=== PATIENT | female | born 1970 | race Caucasian/White ===

== ENCOUNTER → 2024-07-25 | Outpatient (BNVA) | payer MEDICARE, MEDICAID, SELFPAY | END | disposition home or self-care (01) | PROVIDERS: PCP Nurse Practitioner Family; Referring Provider Nurse Practitioner Family; Visit Provider Urology | DX: N30.20 Other chronic cystitis without hematuria (principal); I13.2 Hypertensive heart and chronic kidney disease with heart failure and with stage 5 chronic kidney disease, or end stage renal disease; E11.22 Type 2 diabetes mellitus with diabetic chronic kidney disease; N18.6 End stage renal disease; Z99.2 Dependence on renal dialysis; I50.9 Heart failure, unspecified; E78.00 Pure hypercholesterolemia, unspecified; K21.9 Gastro-esophageal reflux disease without esophagitis; E03.9 Hypothyroidism, unspecified; E66.9 Obesity, unspecified; Z68.32 Body mass index [BMI] 32.0-32.9, adult | CPT/HCPCS: 52224; 81003; 96372; A4217; A4649; C1894; J1580; A9270 ==

== ENCOUNTER → 2024-08-15 | Outpatient (BNVA) | payer MEDICARE, MEDICAID, SELFPAY | END | disposition home or self-care (01) | PROVIDERS: PCP Nurse Practitioner Family; Referring Provider Nurse Practitioner Family; Visit Provider Urology | DX: N30.20 Other chronic cystitis without hematuria (principal); Z87.440 Personal history of urinary (tract) infections; I12.0 Hypertensive chronic kidney disease with stage 5 chronic kidney disease or end stage renal disease; E11.22 Type 2 diabetes mellitus with diabetic chronic kidney disease; N18.6 End stage renal disease; E66.9 Obesity, unspecified; Z68.33 Body mass index [BMI] 33.0-33.9, adult; E78.00 Pure hypercholesterolemia, unspecified; K21.9 Gastro-esophageal reflux disease without esophagitis; E03.9 Hypothyroidism, unspecified | CPT/HCPCS: 99212; G0463 ==

== ENCOUNTER 2024-12-15 13:40 | Inpatient (IN) | payer MEDICARE, MEDICAID, SELFPAY ==
[2024-12-15 13:41] VITALS: BMI 32.1
[2024-12-15 14:08] VITALS: BP 161/97; PULSE 118; RESP 20; TEMP 38.3; O2SAT 95
--- NOTE | 2024-12-15 14:19 | XR_ITS ---
Examination: Abdomen sonogram, Limited Date and time of exam: December 12, 2024 1451 hours INDICATIONS: Nausea vomiting beginning 3 days ago Technique: Real-time pruett scale transabdominal sonographic images of the upper abdomen obtained. Findings: Normal gallbladder Common bile duct 0.6 cm no stones Pancreatic head 2.1 cm Liver 18.4 cm no focal liver lesions Normal hepatopedal portal venous flow Patent IVC IMPRESSION: Normal gallbladder Common bile duct 0.6 cm no stones Moderate hepatomegaly no focal liver lesions
--- NOTE | 2024-12-15 14:19 | PD.EDRME ---
Rapid Medical Screening Exam RME Arrival date/time: 12/15/24 13:40 54-year-old female with no known medical history presents to the emergency room with a chief complaint of 10 out of 10 epigastric pain, fever, right upper quadrant tenderness, diarrhea, vomiting x 3 days I have greeted and performed a focused initial assessment of this patient. A comprehensive ED assessment and evaluation of the patient, analysis of all test results, and completion of the medical decision making process will be conducted by additional ED providers. Chief Complaint: Nausea/Vomiting/Diarrhea Vital signs: Vital Signs Temperature 100.9 F H 12/15/24 14:08 Pulse Rate 118 H 12/15/24 14:08 Respiratory Rate 20 12/15/24 14:08 Blood Pressure 161/97 H 12/15/24 14:08 Pulse Oximetry (%) 95 12/15/24 14:08 Oxygen Delivery Method Room Air 12/15/24 14:08 Vital signs reviewed by provider: Yes
[2024-12-15 14:44] VITALS: TEMP 38.3
[2024-12-15] MEDS: ACETAMINOPHEN 500 MG TABLET 1000 MG PO (14:44)
[2024-12-15] MEDS: ONDANSETRON ODT 4 MG TABRAP PO (14:45)
[2024-12-15 14:51] LABS: Basophils % (Auto) 0 % (0-2.5); Eosinophils # (Auto) 0.1 Thou/mm3 (0.0-0.5); Eosinophils % (Auto) 0 % (0-10); Hematocrit 26.8 % (36.0-46.0); Hemoglobin 9.3 g/dL (12.0-16.0); Immature Granulocytes % (Auto) 1 % (0-0); Immature Granulocytes Auto 0.16 Thou/mm3 (0.00-0.00); Lymphocytes # (Auto) 0.8 Thou/mm3 (1.0-4.8); Lymphocytes % (Auto) 6 % (10-50); Mean Corpuscular HGB Conc 34.7 g/dl (31.0-37.0); Mean Corpuscular Hemoglobin 32.5 pg (25.0-35.0); Mean Corpuscular Volume 94 fL (80-100); Monocytes # (Auto) 1.1 Thou/mm3 (0.0-0.8); Monocytes % (Auto) 8 % (0-12); Neutrophils # (Auto) 12.2 Thou/mm3 (1.8-7.7); Neutrophils % (Auto) 85 % (37-80); Nucleated Red Blood Cell % 0 /100 WBC (0); Platelet Count 297 Thou/mm3 (140-440); RDW Standard Deviation 47.2 fL (36.4-46.3); Red Blood Count 2.86 Miln/mm3 (4.00-5.20); White Blood Count 14.4 Thou/mm3 (3.6-11.0)
[2024-12-15 15:20] LABS: Alanine Aminotransferase < 7 U/L (10-49); Albumin, Serum 4.2 gm/dL (3.5-5.0); Albumin/Globulin Ratio 1.2 (1.2-2.2); Alkaline Phosphatase 106 U/L (46-116); Anion Gap 21 (7-16); BUN/Creatinine Ratio 7 Ratio (12-20); Bilirubin,Total 0.3 mg/dL (0.3-1.2); Blood Urea Nitrogen 47 mg/dL (9-23); Calcium 9.2 mg/dL (8.3-10.6); Calcium (Corrected) 9.2 mg/dL (8.5-10.1); Carbon Dioxide 23.8 mMol/L (20.0-31.0); Chloride 83 mMol/L (98-107); Creatinine (Component) 6.5 mg/dL (0.6-1.3); Estimated Creatinine Clearance 10.7 mL/min (>60); Globulin 3.6 gm/dL (2.3-3.5); Lipase 24 U/L (12-53); Osmolality,Calculated 300 (275-295); Sodium 128 mMol/L (136-145); Total Protein 7.8 gm/dL (5.7-8.2); eGFR 7 See Note
[2024-12-15 15:32] LABS: Glucose 652 mg/dL (74-106)
--- NOTE | 2024-12-15 15:37 | XR_ITS ---
Examination: PA chest single view TECHNIQUE: Upright PA chest single view INDICATIONS: Vomiting today FINDINGS: Mild pneumonia left base Normal heart size Right lung clear Osseous structures are intact IMPRESSION: Mild pneumonia left base, consider mild left base aspiration pneumonia
[2024-12-15 16:18] LABS: Lactate (Lactic Acid) 1.8 mMol/L (0.4-2.0)
[2024-12-15 16:19] LABS: Base Excess, Venous 3 (-3-3); O2 Saturation, Venous 78 % (96-97); PCO2, Venous 33 mmHg (36-56); PO2, Venous 40 mmHg (15-58)
[2024-12-15] MEDS: MEROPENEM INJ 1,000 MG in SODIUM CHLORIDE 0.9% (Popper) 50 ML 100 MG IV (17:13)
[2024-12-15] MEDS: VANCOMYCIN/NS 1 GM IVPB 200 ML IV (17:39)
--- NOTE | 2024-12-15 19:22 | PD.EDADDENDU ---
Emergency Room Addendum Addendum Narrative: Patient was in the waiting room and has renal failure and fever with tachycardia and presumed septic although chief close nausea vomiting diarrhea. Charge nurse was asked to put this patient in her room. I placed antibiotic course at 1536 hrs. and later patient was put in a RP room so she can get her antibiotics. At [address] Sánchez is going to see this patient and assume care for her. Note this patient was a septic alert and is immunocompromise due to her renal failure.
--- NOTE | 2024-12-15 19:28 | XR_ITS ---
Examination: CT chest, without intravenous contrast. CT abdomen, without intravenous contrast. CT pelvis, without intravenous contrast. 2-D sagittal and coronal reconstructions. 3-D reconstructions. Date and time of exam:December 15, 20242014 hours INDICATIONS: Chest pain and abdominal pain and fever today COMPARISON: CT abdomen and pelvis November 23, 2023 CTDI vol (mgy) 9.5 DLP (MGycm)668 Technique: Multiple CT images, 3.0 mm slice thickness, obtained chest, abdomen, pelvis, with the high-resolution 64 slice scanner.. Sagittal and coronal 2-D reconstructions are obtained. 3-D reconstructions Low dose protocols were performed. One or more of the following dose reduction techniques were used; automated exposure control, adjustment of the mA and/or KV according to patient size, use of iterative reconstruction technique. 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 Marked abnormal thickening of the urinary bladder wall up to 16 mm Moderate disc narrowing L4-L5, L5-S1, L4-L5 large 10 mm central lumbar disc bulge producing severe spinal stenosis IMPRESSION: 18 mm enlarged right tracheobronchial lymph node 5 cm dense pneumonic consolidation versus pulmonary mass in the left upper lobe, follow-up imaging recommended posttreatment to exclude underlying lung tumor 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
[2024-12-15 20:11] LABS: Sed Rate (ESR) 88 mm/hr (0-30)
[2024-12-15 20:27] LABS: B-Type Natriuretic Peptide 452 pg/mL (0-100)
[2024-12-15 20:46] LABS: HCG,Qualitative Serum Positive
--- NOTE | 2024-12-15 20:50 | EDNOTE_ITS ---
Nausea/Vomit./Diarrhea-RME/HPI General Chief complaint: Nausea/Vomiting/Diarrhea Stated complaint: VOMITING Time Seen by Provider: 12/15/24 18:31 Arrival date/time: 12/15/24 13:40 RME / HPI RME / HPI Narrative: 12/15/24 13:40 54-year-old female with no known medical history presents to the emergency room with a chief complaint of 10 out of 10 epigastric pain, fever, right upper quadrant tenderness, diarrhea, vomiting x 3 days I have greeted and performed a focused initial assessment of this patient. A comprehensive ED assessment and evaluation of the patient, analysis of all test results, and completion of the medical decision making process will be conducted by additional ED providers. This section includes all my notes and documentations, including HPI, PE, and ED course. Cedrick Sánchez MD HPI: 54 y/o female with Hx of CHF, ESRD, and DM here with several days of vomiting/coughing and diarrhea and malaise and minimal oral intake and subjective fever and chills. Patient receives dialysis Tuesdays, , and Saturdays. No other complaints. ROS: All negative except as documented in HPI. Physical Exam: General: Alert and oriented. No acute distress when remaining still. Fever noted. Eyes: Conjunctivae and lids clear. ENT: No nasal congestion. Neck: Supple. Heart: Tachycardia noted. Lungs: No respiratory distress. Mildly decreased air movement with rhonchi and rales. Abdomen: Soft with equivocal tenderness, difficult to localize. Normal bowel sounds. No distension. No rebound or guarding. Back: No CVA tenderness. Skin: Warm and dry. Neuro: Alert and oriented X 3. I reviewed all diagnostic test results: My interpretation of the chest x-ray is: Infiltrates. My review of the Chest/Abdomen/Pelvis CT report is: 18 mm enlarged right tracheobronchial lymph node. 5 cm dense pneumonic consolidation versus pulmonary mass in the left upper lobe, follow-up imaging recommended posttreatment to exclude underlying lung tumor. 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 Again noted marked abnormal thickening of the urinary bladder wall, differential would include cystitis, bladder carcinoma, recommend urology consultation. Severe spinal stenosis L4-L5, recommend elective MRI lumbar spine without contrast follow-up. My review of the Gall Bladder US report is NAD. Blood tests remarkable for WBC 14.4, ESR 88, K 4.0, Cr 6.5, Glu 652, LA 1.8, CRP 20.9, BNP 452, procalcitonin 6.14. UA showed positive leukocyte Estrace, 76 RBC, 11 WBC, and 1+ bacteria. Covid/Influenza negative. At this point, diagnoses include: Sepsis, Pneumonia, Cystitis, Hyperglycemia due to DM, End-stage Renal Disease. Treatment here included: Insulin, Toradol, Morphine, Ofirmev, Tylenol, Merren, Zofran, Vancomycin Patient remained stable. 2241: I discussed the case with Laron Thompson, the patient's Shipping And Receiving Operator, about the presentation and exam and diagnostics and treatments here. And need of further care in the hospital. Recommended admission to hospitalist. 2299: I discussed the case with our hospitalist. About the presentation and exam and diagnostics and treatments here. And need of further care in the hospital. Will accept the patient. Cedrick Sánchez MD Related Data Home Medications ?Medication ?Instructions ?Recorded ?Confirmed insulin glargine 100 unit/mL (3 30 unit subcut QAM 01/2808/15/24 mL) subcutaneous pen (Basaglar KwikPen U-100 Insulin) insulin regular human 100 unit/mL 1 unit subcut PRN AK N Hyperglycemia 04/17/20 08/15/24 injection solution (Humulin R Regular U-100 Insulin) levothyroxine 25 mcg tablet 12.5 mcg PO EVERYOTHERDAY 04/17/20 08/15/24 ergocalciferol (vitamin D2) 1,250 1,250 mcg PO 2 X WEE KLY 08/25/23 08/15/24 mcg (50,000 unit) capsule (Vitamin D2) midodrine 10 mg tablet 10 mg PO TID 08/25/23 sevelamer HCl 800 mg tablet 800 mg PO TID 08/25/2311/03 (Renagel) allopurinol 300 mg tablet 300 mg PO QDAY 03/16/2411/03 diltiazem HCl 240 mg 240 mg PO QDAY 03/16/2411/03 capsule,extended release 24 hr vitamin B complex-vitamin C-folic 1 tab PO QDAY 08/15/24 acid 0.8 mg tablet (Татьяна-Toby) Allergies Allergy/AdvReac Type Severity Reaction Status Date / Time codeine Allergy Severe Swelling Verified 08/15/24 15:08 hydrocodone Allergy Severe Swelling Verified 08/15/24 15:08 Penicillins Allergy Severe Difficulty Verified 08/15/24 15:08 Breathing sulfamethoxazole (From Allergy Severe Swelling Verified 08/15/24 15:08 Bactrim) of Lip/Tongue/Throat trimethoprim (From Bactrim) Allergy Severe Swelling Verified 08/15/24 15:08 of Lip/Tongue/Throat Review of Systems Review of Systems Systems Reviewed: All systems reviewed, normal except as documented Past Medical History Past Medical History CARDIAC: Positive Cardiac Disorders, Hypercholesterolemia, Congestive Heart Failure and Hypertension GASTROINTESTINAL: Positive Gastroesophageal Reflux Disease and Obesity GENITOURINARY: Positive Genitourinary Disorders, Renal Disease and Dialysis (T/Thr/Sat) REPRODUCTIVE: Positive Previous Pregnancies (5) ENT: Positive Cataracts ENDOCRINE: Positive Endocrine Disorders, Diabetes Mellitus Type 2 and Hypothyroidism HEMATOLOGIC: Positive Blood Disorders and Anemia OTHER HISTORY: Positive Hospitalization, Shingles, Falls, Blood Transfusions and Chicken Pox Family History FAMILY HISTORY: Positive Family Respiratory Disorders, Family Cardiac Disorders and Family Cancer Surgical History SURGICAL: Positive Oral Surgery and Section (2) ED Exam Narrative Physical exam: Refer to HPI above Course Course Course Narrative: CXR is ordered for determining the etiology of shortness of breath. Quality Measures none Orders Category Date Time Status Bedside COVID-19 Antigen Test NOW Care 12/15/24 19:26 Active Bedside Influenza A&B Antigen Test NOW Care 12/15/24 19:26 Completed Saline [Insert IV] NOW Care 12/15/24 19:26 Active Straight [In and Out Catheter] X1 Care 12/15/24 19:26 Completed Consult to Nephrology Stat Cons 12/15/24 22:[address] chest abdomen pelvis wo Stat Exams 12/15/24 19:28 Completed US gall bladder Stat Exams 12/15/24 14:19 Completed US pelvic complete Stat Exams 12/15/24 23:08 Ordered XR chest 1V portable Stat Exams 12/15/24 15:37 Completed BNP [B-Type Natriuretic Peptide] Stat Lab 12/15/24 19:57 Completed Beta HCG,Quantitative Stat Lab 12/15/24 16:00 Completed Beta Hydroxybutyrate Stat Lab 12/15/24 19:57 Completed Blood Culture (Lab) Stat Lab 12/15/24 16:09 Received CBC Stat Lab 12/15/24 14:35 Completed CMP [Comprehensive Metabolic Panel] Stat Lab 12/15/24 14:35 Completed CRP [C-Reactive Protein] Stat Lab 12/15/24 19:57 Completed ESR [Sed Rate (ESR)] Stat Lab 12/15/24 19:57 Completed Free T4 (Free Thyroxine) Stat Lab 12/15/24 19:57 Completed HCG Qualitative,Urine Stat Lab 12/15/24 22:01 Completed HCG,Qualitative Serum Stat Lab 12/15/24 19:57 Completed Lactate (Lactic Acid) Stat Lab 12/15/24 16:00 Completed Lipase Stat Lab 12/15/24 14:35 Completed Magnesium Stat Lab 12/15/24 19:57 Completed Procalcitonin Stat Lab 12/15/24 19:57 Completed TSH [Thyroid Stimulating Hormone] Stat Lab 12/15/24 19:57 Completed Troponin I Stat Lab 12/15/24 19:57 Completed UA [Urinalysis] Stat Lab 12/15/24 22:01 Completed Urine Culture Stat Lab 12/15/24 22:01 Received Venous Blood Gas Stat Lab 12/15/24 16:00 Completed Acetaminophen Ivpb [Ofirmev Inj] Med 12/15/24 19:38 Discontinued 1,000 mg in 100 ml IV X1 Acetaminophen Tab [Tylenol ES Tab] Med 12/15/24 14:25 Discontinued 1,000 mg PO X1 ONE Insulin Regular Med 12/15/24 19:39 Discontinued 10 unit IV X1 ONE Ketorolac Inj [Toradol Inj] Med 12/15/24 19:38 Discontinued 30 mg IVP X1 ONE Meropenem Inj [Merrem Inj] 1,000 mg Med 12/15/24 15:36 Discontinued SODIUM CHLORIDE 0.9% (Popper) [Ns 0.9% (P)] 50 ml IV X1 Morphine Inj Med 12/15/24 19:26 Discontinued 4 mg IVP X1 ONE Ondansetron Odt [Zofran Odt] Med 12/15/24 14:25 Discontinued 4 mg PO X1 ONE Vancomycin Inj 1,000 mg Med 12/15/24 15:35 Discontinued Sodium Chloride 0.9% 250 ml [Ns] 250 ml IV X1 Vancomycin/Ns 1 gm Ivpb 200 ml Med 12/15/24 15:45 Discontinued IV X1 Vital Signs Vital signs: Vital Signs Temperature 100.9 F H 12/15/24 14:08 Pulse Rate 118 H 12/15/24 14:08 Respiratory Rate 20 12/15/24 14:08 Blood Pressure 161/97 H 12/15/24 14:08 Pulse Oximetry (%) 95 12/15/24 14:08 Oxygen Delivery Method Room Air 12/15/24 14:08 Nausea/Vomiting/Diarrhea MDM Narrative MDM Narrative:: Scribe Attestation: Ani Zuniga, am scribing for and in the presence of Dr. Sánchez. Provider Notation: Although this document has been carefully reviewed, there may still be some phonetic and other typographical errors.? These errors are purely grammatical due to imperfections in the software program and should not be construed in any way to? compromise the substance of the patient's medical care during this visit. 54 y/o female with Hx of CHF, Renal Disease, Dialysis, and Diabetes Mellitus Type 2 presents to ED c/o of fever, vomiting, diarrhea, and epigastric abdominal pain x 3 days. Patient receives dialysis Tuesdays, , and Saturdays. No other complaints. Patient data External records reviewed:: [facility] previous records (Reviewed prior ED records from 09/23/23. Patient was seen for Chronic mastoiditis.) Clinical information provided by:: patient Social determinants that could affect healthcare access:: none Patient has the following chronic illnesses:: Hypercholesterolemia, Congestive Heart Failure, Hypertension, Gastroesophageal Reflux Disease, Obesity, Renal Disease and Dialysis (T/Thr/Sat), Cataracts, Diabetes Mellitus Type 2, Hypothyroidism, Anemia How is presenting disease/condition affected by chronic disease/condition?: exacerbated by Evaluation data The following diagnostics were reviewed and interpreted by me:: lab results and radiology exam(s) Lab and/or radiology exams considered but not ordered:: None Interpretation Summary: I reviewed all diagnostic test results: My interpretation of the chest x-ray is: Infiltrates. My review of the Chest/Abdomen/Pelvis CT report is: 18 mm enlarged right tracheobronchial lymph node. 5 cm dense pneumonic consolidation versus pulmonary mass in the left upper lobe, follow-up imaging recommended posttreatment to exclude underlying lung tumor. 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 Again noted marked abnormal thickening of the urinary bladder wall, differential would include cystitis, bladder carcinoma, recommend urology consultation. Severe spinal stenosis L4-L5, recommend elective MRI lumbar spine without contrast follow-up. My review of the Gall Bladder US report is NAD. Blood tests remarkable for WBC 14.4, ESR 88, K 4.0, Cr 6.5, Glu 652, LA 1.8, CRP 20.9, BNP 452, procalcitonin 6.14. UA showed positive leukocyte Estrace, 76 RBC, 11 WBC, and 1+ bacteria. Covid/Influenza negative. Medications / Prescriptions Medications / Prescriptions considered but not ordered:: None Medication administrations:: Medication Administration History Acetaminophen (Acetaminophen 325 Mg Tablet) 650 mg PO Q6H PRN PRN Reason: Fever >100.4 or pain Stop: 01/14/25 23:31 Dextrose (Dextrose 50%-Water Inj 50 Ml Syringe) 25 ml IV Q15MIN PRN PRN Reason: BG 50-70 responsive npo pt Stop: 01/14/25 23:31 Dextrose (Dextrose 50%-Water Inj 50 Ml Syringe) 50 ml IV Q15MIN PRN PRN Reason: BG <50 OR BG <70 & pt unresponsive Stop: 01/14/25 23:31 Docusate Sodium (Docusate Sod 100 Mg Capsule) 100 mg PO QDAY PRN; Protocol PRN Reason: CONSTIPATION Stop: 01/14/25 23:31 Glucagon (Glucagon Inj 1 Mg Vial) 1 mg IM Q15MIN PRN PRN Reason: BG <70, and no IV access Heparin Sodium (Porcine) (Heparin Sod Inj 5000 Unit/Ml Vial) 5,000 unit SC Q12HR MICHELLE Stop: 12/30/24 08:59 Lactated Ringer's (Lactated Ringers) 1,000 mls @ 80 mls/hr IV .[id number] ONE Stop: 12/16/24 12:08 Ceftriaxone Sodium/Dextrose (Rocephin/D5w 1gm Iv Premix) 1 gm in 50 mls @ 100 mls/hr IV QDAY@2100 MICHELLE Stop: 12/22/24 23:44 Last Admin: 12/15/24 23:54 Dose: 100 mls/hr Documented By: AM Insulin Glargine (Insulin Glargine (Lantus) 5 Unit/0.05 Ml (Per 5 Units)) 25 unit SC QDAY [facility] Stop: 01/15/25 08:59 Insulin Human Lispro (Insulin Lispro (Admelog) 1 Unit/0.01 Ml Unit) 0 unit SC Q6HR MICHELLE; Protocol Stop: 01/15/25 00:00 Ondansetron HCl (Ondansetron Inj 2 Mg/Ml Inj 2 Ml) 4 mg IVP Q6H PRN; Protocol PRN Reason: NAUSEA OR VOMITING Stop: 01/14/25 23:31 Sennosides (Senna Tablet) 1 tab PO QDAY PRN; Protocol PRN Reason: constipation Stop: 01/14/25 23:31 Discontinued Medications Acetaminophen (Acetaminophen 500 Mg Tablet) 1,000 mg PO X1 ONE Stop: 12/15/24 14:26 Last Admin: 12/15/24 14:44 Dose: 1,000 mg Documented By: PAPO Vancomycin HCl 1,000 mg/ (Sodium Chloride) 250 mls @ 150 mls/hr IV X1 ONE Stop: 12/15/24 17:14 Last Admin: 12/15/24 17:40 Dose: Not Given Documented By: [facility] Non-Admin Reason: Duplicate Medication on eMAR Meropenem 1,000 mg/ Sodium (Chloride) 50 mls @ 100 mls/hr IV X1 ONE Stop: 12/15/24 15:37 Last Infusion: 12/15/24 17:40 Dose: Infused Documented By: [facility] Admin: 12/15/24 17:13 Dose: 100 mls/hr Documented By: [facility] Vancomycin/Sodium Chloride (Vancomycin/Ns 1 Gm Ivpb) 200 mls @ 120 mls/hr IV X1 ONE Stop: 12/15/24 17:24 Last Infusion: 12/15/24 19:20 Dose: Infused Documented By: [facility] Admin: 12/15/24 17:39 Dose: 120 mls/hr Documented By: [facility] Acetaminophen (Ofirmev Inj) 1,000 mg in 100 mls @ 250 mls/hr IV X1 ONE Stop: 12/15/24 20:01 Last Admin: 12/15/24 22:48 Dose: Not Given Documented By: Non-Admin Reason: Patient Refused Lactated Ringer's (Lactated Ringers) 500 mls @ 999 mls/hr IV .Q31M ONE Stop: 12/16/24 00:09 Last Admin: 12/15/24 23:59 Dose: 999 mls/hr Documented By: AM Insulin Human Regular (Insulin Hum Regular 1 Unit/0.01 Ml (Per Unit)) 10 unit IV X1 ONE Stop: 12/15/24 19:40 Last Admin: 12/15/24 22:37 Dose: 10 unit Documented By: AM Co-signed By: VINCE Ketorolac Tromethamine (Ketorolac Inj 30 Mg/Ml Vial) 30 mg IVP X1 ONE Stop: 12/15/24 19:39 Last Admin: 12/15/24 22:16 Dose: Not Given Documented By: AM Non-Admin Reason: Patient Refused Morphine Sulfate (Morphine Sulf Inj 10 Mg/Ml Vial) 4 mg IVP X1 ONE Stop: 12/15/24 19:27 Last Admin: 12/15/24 22:15 Dose: Not Given Documented By: AM Non-Admin Reason: Patient Refused Ondansetron HCl (Ondansetron Odt 4 Mg Tabrap) 4 mg PO X1 ONE; Protocol Stop: 12/15/24 14:26 Last Admin: 12/15/24 14:45 Dose: 4 mg Documented By: OA Insulin, Toradol, Morphine, Ofirmev, Tylenol, Merren, Zofran, Vancomycin Consultations Consultation(s) initiated? (list below): Yes Consultation #1 (Physician, Specialty, Details): I discussed the case with Laron Thompson, the patient's Shipping And Receiving Operator, about the presentation and exam and diagnostics and treatments here. And need of further care in the hospital. Recommended admission to hospitalist. Time: 22:42 Diagnosis Nausea Differential Diagnosis: traveler's diarrhea, food poisoning, gastroenteritis, clostridium difficile infection, drug-induced nausea and vomiting, dehydration and other (Pneumonia, UTI, sepsis) Most likely diagnosis given after review of the tests above:: Sepsis, Pneumonia, Cystitis, hyperglycemia due to DM, ESRD. Admission Indicated Admission indicated?: indicated Explain why admission is indicated or not indicated:: Sepsis, Pneumonia, Cystitis, hyperglycemia due to DM, ESRD. Admission Request Was there a request for admission?: Yes Admission Attestation Admission request attestation: Discussed case with Hospitalist service regarding admission. Discussed patients ED course, exam findings, labs, and radiology results. The Hospitalist [agrees] to accept the patient for admission. Disposition Plan Disposition Plan: Admit Discharge Plan Plan Patient Disposition: Admit Acute Care w/in Hospital Problem List Clinical Impression: Sepsis, Pneumonia, Cystitis, Hyperglycemia due to diabetes mellitus, End-stage renal disease (ESRD)
[2024-12-15 20:54] LABS: Free T4 (Free Thyroxine) 1.01 ng/dL (0.89-1.76); Magnesium 2.1 mg/dL (1.6-2.6); Procalcitonin 6.14 ng/ml (0.0-0.49); Thyroid Stimulating Hormone 1.29 uIU/mL (0.55-4.78); Troponin I < 0.020 ng/mL (0.0-0.045)
[2024-12-15 21:09] LABS: Beta Hydroxybutyrate 0.1 mmol/L (<0.6); C-Reactive Protein 20.9 mg/dL (0.0-0.9)
[2024-12-15 21:36] VITALS: BP 149/67; PULSE 94; RESP 20; TEMP 36.9; O2SAT 100
[2024-12-15 22:07] LABS: Collection Type, Urine Clean Catch
[2024-12-15 22:15] LABS: HCG Qualitative,Urine Negative
[2024-12-15 22:29] LABS: Bacteria,Urine 1+; Bilirubin,Urine Negative (Negative); Blood,Urine 1+ (Negative); Glucose, Urine 4+ (Negative); Ketones,Urine 1+ (Negative); Leukocyte Esterase,Urine Positive (Negative); Nitrite,Urine Negative (Negative); PH,Urine 6.5 (5.0-7.0); Protein,Urine 3+ (Neg - Trace); RBC,Urine 76 /hpf (0-3); Specific Gravity,Urine 1.014 (1.001-1.035); Squamous Epithelial Cell,Urine 7 /hpf (0-5); Urobilinogen,Urine Negative mg/dL (0.0-1.0); WBC,Urine 11 /hpf (0-5)
[2024-12-15 22:35] LABS: Color,Urine Amber (Lt Yel-Yel)
[2024-12-15 22:36] LABS: Clarity,Urine Turbid (Clear/Hazy)
[2024-12-15] MEDS: INSULIN HUM REGULAR 1 UNIT/0.01 ML (PER UNIT) 10 UNIT IV (22:37)
[2024-12-15 23:14] VITALS: BP 155/96; PULSE 97; RESP 19; TEMP 36.8; O2SAT 95
[2024-12-15] MEDS: cefTRIAXone/D5w 1gm IV premix 1 GM/50 ML BAG IV (23:54)
[2024-12-15] MEDS: RINGERS LACTATED 500 ML 500 ML 999 ML IV (23:59)
[2024-12-16] VITALS (29 sets, daily range): BP systolic 87–174; BP diastolic 25–138; PULSE 59–128; RESP 17–32; TEMP 37–39.5; O2SAT 82–100; BMI 32.1
--- NOTE | 2024-12-16 00:06 | PD.RESHP ---
Documentation for date of: 12/16/24 [facility] History of Present Illness Chief complaint: Nausea, vomiting, fever History of present illness: 54 y/o F with PMHx significant for ESRD (//Wed), CHF, type 2 diabetes, hypothyroidism, dermoid tumor presents with chief complaint nausea, vomiting, fever x 1 day. Patient was in usual state of health until this morning when she developed intractable nausea and vomiting, worsened with food. Patient also noted fevers during this time. Patient denied shortness of breath, cough, chest pain, abdominal pain, dysuria. Patient reports her last menstrual period was approximately 5 years ago. Patient has known history of dermoid tumor, has not been followed up outpatient for this, no intervention as size is stable. ED COURSE: Labs significant for: WBC 14.4, sodium 128, anion gap 21, BUN 47, creatinine 6.5, EGFR 7, glucose 62, osmolarity 300, BNP 452, BHP 0.1, lactic acid 1.8, Pro-Sebastian 6.1, CRP 20.9, serum hCG positive, VBG pH 7.5, pCO2 33. Urinalysis: 3+ protein, 4+ glucose, 1+ blood, positive leukocyte esterase, 76 RBCs, 11 WBCs, 7 squamous epithelial cells, 1+ bacteria. Imaging significant for: Catheter, possible effacement. 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 Patient received vancomycin, meropenem, ketorolac, morphine. Patient given 10 units insulin IV. PMH: ESRD, CHF, diabetes, hypothyroidism, dermal tumor PSH: 2 C-sections, left upper extremity fistula placement, cataract surgery SH: Quit smoking 23 years ago, [id number] history. Endorses 1 glass of wine every 2 weeks, denies any illicit drug use. Allergies:?Codeine, hydrocodone, penicillin, sulfa drugs Medications: Atorvastatin, levothyroxine, allopurinol, midodrine, 25 units of long-acting insulin and insulin sliding scale. Review of Systems Review of Systems Systems Reviewed: All systems reviewed, normal except as documented Past Medical History Past Medical History Comments PMH COMMENT: PMH: ESRD, CHF, diabetes, hypothyroidism, dermal tumor PSH: 2 C-sections, left upper extremity fistula placement, cataract surgery SH: Quit smoking 23 years ago, [id number] history. Endorses 1 glass of wine every 2 weeks, denies any illicit drug use. Allergies:?Codeine, hydrocodone, penicillin, sulfa drugs Medications: Atorvastatin, levothyroxine, allopurinol, midodrine, 25 units of long-acting insulin and insulin sliding scale. Exam Vital Signs Temp Pulse Resp BP Pulse Ox O2 Del Method 98.2 F 97 19 155/96 H 95 Room Air 12/15/24 23:14 12/15/24 23:14 12/15/24 23:14 12/15/24 23:14 12/15/24 23:14 12/15/24 23:14 Narrative Exam PE: Gen: Well-developed and well-nourished. HEENT: NCAT, PERRLA, EOMI, anicteric conjunctivae. Dry mucous membranes. CVS: normal S1 and S2. RRR. No M/R/G. Resp: CTA B/L. No rhonchi, rales, crackles or wheezing. Abd: soft, non-tender, non-distended. MSK: Good ROM in BUE & BLE. No edema or rash. Left upper arm fistula. Neuro: CN II-XII grossly intact. Strength 5/5 in BUE & BLE. Alert and oriented x3. Psych: appropriate mood and affect. Results: Labs 12/16/24 17:30 12/16/24 17:30 Labs: Short CBC 12/15/24 Range/Units 14:35 WBC 14.4 H (3.6-11.0) Thou/mm3 Hgb 9.3 L (12.0-16.0) g/dL Hct 26.8 L (36.0-46.0) % Plt Count 297 (140-440) Thou/mm3 BMP 12/15/24 14:35 Sodium 128 L Potassium 4.0 Chloride 83 L Carbon Dioxide 23.8 BUN 47 H Creatinine 6.5 H* Glucose 652 H* Calcium 9.2 Cardiac Enzymes 12/15/24 Range/Units 19:57 Troponin I < 0.020 (0.0-0.045) ng/mL Liver Function 12/15/24 Range/Units 14:35 Total Bilirubin 0.3 (0.3-1.2) mg/dL ALT < 7 L (10-49) U/L Alkaline Phosphatase 106 (46-116) U/L Albumin 4.2 (3.5-5.0) gm/dL Urine 12/15/24 Range/Units 22:01 Urine Color Isela (Lt Yel-Yel) Urine Clarity Turbid A (Clear/Hazy) Urine pH 6.5 (5.0-7.0) Ur Specific Micro 1.014 (1.001-1.035) Urine Protein 3+ A (Neg - Trace) Urine Glucose (UA) 4+ A (Negative) ABG Interpretation ABG results: 12/15/24 16:00 VBG pH 7.50 VBG pCO2 33 L VBG pO2 40 VBG Base Excess 3 Quality Measures Quality Measures VTE prophylaxis and none Medications Home Medications and Allergies Home Medications ?Medication ?Instructions ?Recorded ?Confirmed ?Type insulin glargine 100 unit/mL (3 30 unit subcut QAM 04/17/20 08/15/24 History mL) subcutaneous pen (Basaglar KwikPen U-100 Insulin) insulin regular human 100 unit/mL 1 unit subcut PRN PRN Hyperglycemia 04/17/20 08/15/24 History injection solution (Humulin R Regular U-100 Insulin) levothyroxine 25 mcg tablet 12.5 mcg PO EVERYOTHERDAY 04/17/20 08/15/24 History ergocalciferol (vitamin D2) 1,250 1,250 mcg PO 2 X WEEKLY 08/25/23 08/15/24 History mcg (50,000 unit) capsule (Vitamin D2) midodrine 10 mg tablet 10 mg PO TID 08/25/23 08/15/24 History sevelamer HCl 800 mg tablet 800 mg PO TID 08/25/23 08/15/24 History (Renagel) allopurinol 300 mg tablet 300 mg PO QDAY 03/16/24 08/15/24 History diltiazem HCl 240 mg 240 mg PO QDAY 03/16/24 08/15/24 History capsule,extended release 24 hr vitamin B complex-vitamin C-folic 1 tab PO QDAY 03/16/24 08/15/24 History acid 0.8 mg tablet (Татьяна-Toby) Allergies Allergy/AdvReac Type Severity Reaction Status Date / Time codeine Allergy Severe Swelling Verified 08/15/24 15:08 hydrocodone Allergy Severe Swelling Verified 08/15/24 15:08 Penicillins Allergy Severe Difficulty Verified 08/15/24 15:08 Breathing sulfamethoxazole (From Allergy Severe Swelling Verified 08/15/24 15:08 Bactrim) of Lip/Tongue/Throat trimethoprim (From Bactrim) Allergy Severe Swelling Verified 08/15/24 15:08 of Lip/Tongue/Throat Visit Medications Acetaminophen (Acetaminophen 325 Mg Tablet) 650 mg PO Q6H PRN PRN Reason: Fever >100.4 or pain Stop: 01/14/25 23:31 Dextrose (Dextrose 50%-Water Inj 50 Ml Syringe) 25 ml IV Q15MIN PRN PRN Reason: BG 50-70 responsive npo pt Stop: 01/14/25 23:31 Dextrose (Dextrose 50%-Water Inj 50 Ml Syringe) 50 ml IV Q15MIN PRN PRN Reason: BG <50 OR BG <70 & pt unresponsive Stop: 01/14/25 23:31 Docusate Sodium (Docusate Sod 100 Mg Capsule) 100 mg PO QDAY PRN; Protocol PRN Reason: CONSTIPATION Stop: 01/14/25 23:31 Glucagon (Glucagon Inj 1 Mg Vial) 1 mg IM Q15MIN PRN PRN Reason: BG <70, and no IV access Heparin Sodium (Porcine) (Heparin Sod Inj 5000 Unit/Ml Vial) 5,000 unit SC Q12HR [facility] Stop: 12/30/24 08:59 Lactated Ringer's (Lactated Ringers) 500 mls @ 999 mls/hr IV .Q31M ONE Stop: 12/16/24 00:09 Last Admin: 12/15/24 23:59 Dose: 999 mls/hr Lactated Ringer's (Lactated Ringers) 1,000 mls @ 80 mls/hr IV .[id number] ONE Stop: 12/16/24 12:08 Ceftriaxone Sodium/Dextrose (Rocephin/D5w 1gm Iv Premix) 1 gm in 50 mls @ 100 mls/hr IV QDAY@2100 [facility] Stop: 12/22/24 23:44 Last Admin: 12/15/24 23:54 Dose: 100 mls/hr Insulin Glargine (Insulin Glargine (Lantus) 5 Unit/0.05 Ml (Per 5 Units)) 25 unit SC QDAY MICHELLE Stop: 01/15/25 08:59 Insulin Human Lispro (Insulin Lispro (Admelog) 1 Unit/0.01 Ml Unit) 0 unit SC Q6HR [facility]; Protocol Stop: 01/15/25 00:00 Ondansetron HCl (Ondansetron Inj 2 Mg/Ml Inj 2 Ml) 4 mg IVP Q6H PRN; Protocol PRN Reason: NAUSEA OR VOMITING Stop: 01/14/25 23:31 Sennosides (Senna Tablet) 1 tab PO QDAY PRN; Protocol PRN Reason: constipation Stop: 01/14/25 23:31 Discontinued Medications Acetaminophen (Acetaminophen 500 Mg Tablet) 1,000 mg PO X1 ONE Stop: 12/15/24 14:26 Last Admin: 12/15/24 14:44 Dose: 1,000 mg Vancomycin HCl 1,000 mg/ (Sodium Chloride) 250 mls @ 150 mls/hr IV X1 ONE Stop: 12/15/24 17:14 Last Admin: 12/15/24 17:40 Dose: Not Given Meropenem 1,000 mg/ Sodium (Chloride) 50 mls @ 100 mls/hr IV X1 ONE Stop: 12/15/24 15:37 Last Infusion: 12/15/24 17:40 Dose: Infused Vancomycin/Sodium Chloride (Vancomycin/Ns 1 Gm Ivpb) 200 mls @ 120 mls/hr IV X1 ONE Stop: 12/15/24 17:24 Last Infusion: 12/15/24 19:20 Dose: Infused Acetaminophen (Ofirmev Inj) 1,000 mg in 100 mls @ 250 mls/hr IV X1 ONE Stop: 12/15/24 20:01 Last Admin: 12/15/24 22:48 Dose: Not Given Insulin Human Regular (Insulin Hum Regular 1 Unit/0.01 Ml (Per Unit)) 10 unit IV X1 ONE Stop: 12/15/24 19:40 Last Admin: 12/15/24 22:37 Dose: 10 unit Ketorolac Tromethamine (Ketorolac Inj 30 Mg/Ml Vial) 30 mg IVP X1 ONE Stop: 12/15/24 19:39 Last Admin: 12/15/24 22:16 Dose: Not Given Morphine Sulfate (Morphine Sulf Inj 10 Mg/Ml Vial) 4 mg IVP X1 ONE Stop: 12/15/24 19:27 Last Admin: 12/15/24 22:15 Dose: Not Given Ondansetron HCl (Ondansetron Odt 4 Mg Tabrap) 4 mg PO X1 ONE; Protocol Stop: 12/15/24 14:26 Last Admin: 12/15/24 14:45 Dose: 4 mg Assessment & Plan Plan 54 y/o F with PMHx significant for ESRD (//Wed), CHF, type 2 diabetes, hypothyroidism, dermoid tumor presents with chief complaint nausea, vomiting, fever x 1 day, admitted for infection, UTI versus pneumonia. #Intractable nausea/vomiting #Pneumonia #UTI Patient presented complaint of fever, intractable nausea and vomiting x 1 day. Patient has nonspecific symptoms, denies shortness of breath, cough, dysuria. Patient has elevated Pro-Sebastian 6.14, anion gap acidosis. CT C/A/P showed left lower lobe consolidation concerning for pneumonia versus malignancy. 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 Of note patient positive beta-hCG test, last period was over 5 years ago. - Qualitative serum hCG test ordered, follow-up - Pelvic ultrasound ordered, follow-up #Type 2 diabetes, patient history #Hyperglycemia Patient history of type 2 diabetes. Patient severely hyperglycemic on presentation, serum glucose 652. Beta hydroxybutyrate 0.1. Patient received 10 units insulin x 1 in the ED, mild improvement. Patient also has pseudohyponatremia, sodium 128, corrected sodium 141. 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 Larry, receives dialysis Wednesday, , Wednesday. Patient presents with high anion gap without metabolic acidosis, bicarb 23.8. Lactic acid 1.8, hydroxybutyrate 0.1, serum osmolality 300. - Clinical Psychiatrist Dr. Larry consulted, appreciate recommendations - ESRD as per patient's usual schedule - Avoid nephrotoxins - Renally dose medications #Hypothyroidism #CHF Patient history as stated. Patient unsure what dosage of her medications she takes, medical reconciliation pending. - Careful IVF as above - Resume home meds after reconciliation DVT prophylaxis: Heparin GI prophylaxis: None Diet: Clear liquid diet Lines: Peripheral IV Code status: Full code Plan of care discussed with attending Dr. Dickinson. Sandoval Carlisle MD PGY?1 Attending Provider Attestation/Addendum I have examined the patient, reviewed labs and imaging findings, discussed the case with the resident(s), and reviewed entered orders. I agree with the plan of care as outlined in this note, with these additional summaries/recommendations: 55-year-old female presents to the ED with chief complaint of intractable nausea vomiting, fevers found to have UTI and possible pneumonia. She will be admitted for further recommendations and management. Dandre Dickinson MD
[2024-12-16 00:07] LABS: Beta HCG,Quantitative 7 mIU/mL (<5.0)
[2024-12-16] MEDS: INSULIN HUM REGULAR 1 UNIT/0.01 ML (PER UNIT) 10 UNIT IV (00:31)
[2024-12-16] MEDS: RINGERS LACTATED 1000 ML 1,000 ML 80 ML IV (00:44)
[2024-12-16] MEDS: INSULIN LISPRO (AdmeLOG) 1 UNIT/0.01 ML UNIT SC ×5 (00:58→21:11)
[2024-12-16] MEDS: ONDANSETRON INJ 2 MG/ML INJ 2 ML 4 MG IVP ×2 (02:50→16:26)
[2024-12-16] MEDS: METOCLOPRAMIDE INJ 5 MG/ML VIAL 2 ML 10 MG IVP ×2 (03:53→17:40)
[2024-12-16 05:17] LABS: Basophils % (Auto) 0 % (0-2.5); Eosinophils # (Auto) 0.1 Thou/mm3 (0.0-0.5); Eosinophils % (Auto) 1 % (0-10); Hematocrit 25.4 % (36.0-46.0); Hemoglobin 8.7 g/dL (12.0-16.0); Immature Granulocytes % (Auto) 2 % (0-0); Immature Granulocytes Auto 0.23 Thou/mm3 (0.00-0.00); Lymphocytes # (Auto) 0.9 Thou/mm3 (1.0-4.8); Lymphocytes % (Auto) 6 % (10-50); Mean Corpuscular HGB Conc 34.3 g/dl (31.0-37.0); Mean Corpuscular Hemoglobin 32.5 pg (25.0-35.0); Mean Corpuscular Volume 95 fL (80-100); Monocytes # (Auto) 1.1 Thou/mm3 (0.0-0.8); Monocytes % (Auto) 7 % (0-12); Neutrophils # (Auto) 13.4 Thou/mm3 (1.8-7.7); Neutrophils % (Auto) 85 % (37-80); Nucleated Red Blood Cell % 0 /100 WBC (0); Platelet Count 278 Thou/mm3 (140-440); RDW Standard Deviation 46.7 fL (36.4-46.3); Red Blood Count 2.68 Miln/mm3 (4.00-5.20); White Blood Count 15.8 Thou/mm3 (3.6-11.0)
[2024-12-16 05:27] LABS: Glucose Estimated Average 278 mg/dL (80-131); Hemoglobin A1C 11.3 % Hgb (4.8-6.0)
[2024-12-16 05:46] LABS: Alanine Aminotransferase < 7 U/L (10-49); Albumin, Serum 4.1 gm/dL (3.5-5.0); Albumin/Globulin Ratio 1.3 (1.2-2.2); Alkaline Phosphatase 96 U/L (46-116); Anion Gap 23 (7-16); BUN/Creatinine Ratio 7 Ratio (12-20); Bilirubin,Total 0.2 mg/dL (0.3-1.2); Blood Urea Nitrogen 51 mg/dL (9-23); Calcium 9.9 mg/dL (8.3-10.6); Calcium (Corrected) 9.9 mg/dL (8.5-10.1); Chloride 86 mMol/L (98-107); Creatinine (Component) 7.4 mg/dL (0.6-1.3); Estimated Creatinine Clearance 9.4 mL/min (>60); Globulin 3.2 gm/dL (2.3-3.5); Glucose 398 mg/dL (74-106); Magnesium 2.1 mg/dL (1.6-2.6); Osmolality,Calculated 289 (275-295); Phosphorous 5.5 mg/dL (2.4-5.1); Potassium 3.6 mMol/L (3.4-5.1); Sodium 129 mMol/L (136-145); Total Protein 7.3 gm/dL (5.7-8.2); eGFR 6 See Note
[2024-12-16 07:55] LABS: Base Excess -2 (-3-3); HCO3 22 mEq/L (20-26); Inspired Oxygen, FIO2 21 %; O2 Saturation 91 % (91-98); PCO2 34 mmHg (32.0-48.0); pH, Arterial 7.42 (7.35-7.45)
[2024-12-16 07:59] LABS: Allen Test Not Performed; PO2 58 mmHg (83-108); Puncture Site Right Radial
[2024-12-16] MEDS: INSULIN LISPRO (AdmeLOG) 1 UNIT/0.01 ML UNIT 10 UNIT SC (08:38)
[2024-12-16] MEDS: INSULIN GLARGINE (Lantus) 5 UNIT/0.05 ML (PER 5 UNITS) 25 UNIT SC ×2 (08:41→21:09)
[2024-12-16 09:32] LABS: Lactate (Lactic Acid) 3.7 mMol/L (0.4-2.0)
[2024-12-16] MEDS: HEPARIN SOD INJ 5000 UNIT/ML VIAL SC ×2 (10:46→21:12)
[2024-12-16] MEDS: ACETAMINOPHEN 325 MG TABLET 650 MG PO ×2 (10:46→18:42)
[2024-12-16] MEDS: DOXYCYCLINE 100 MG TABLET PO ×2 (11:13→21:09)
[2024-12-16] MEDS: ACETAMINOPHEN 325 MG TABLET PO (12:06)
[2024-12-16 12:25] LABS: Reflex Lactate? Y
[2024-12-16 12:44] LABS: Lactic Acid, 3 HR 1.7 mMol/L (0.4-2.0)
--- NOTE | 2024-12-16 15:16 | ESPR_ITS ---
<Statement entered by Jaskaran Banks MD - 12/17/24 12:07> RR was called as patient had rigors with fever. Abx was modified and patient was started on Cefepime. Will consider adjusting abx further for broader range. I discussed with and supervised the project internship physician involved in the care of this patient. Patient assessment and plan was discussed with entire medicine team, including my attending. I agree with the assessment and plan as documented by project internship doctor. Patient care was discussed with my attending physician Dr. Mary Banks, PGY-2 Documentation for date of: 12/16/24 Subjective Subjective Interval history: Patient is seen and examined at bedside Endorsed that she is having nausea, vomitings and diarrhea. Denies burning micturition and reported that she is able to make only minimal amount of urine Vitals are stable except for febrile episodes. On physical examination, noted fistula on left upper extremity with murmurs noted on auscultation Will continue ceftriaxone and doxycycline Blood cultures are still pending. Patient received hemodialysis today as per his routine schedule Exam Vital Signs Temp Pulse Resp BP Pulse Ox O2 Del Method 98.7 F 92 18 119/65 94 L Room Air 12/16/24 14:18 12/16/24 15:00 12/16/24 14:18 12/16/24 15:00 12/16/24 14:18 12/16/24 12:55 Narrative Exam General: Awake. HEENT: Normocephalic, atraumatic, mucous membranes moist. Heart: Regular rate and rhythm, pansystolic murmur heard in all areas. Lungs: Clear to auscultation with no wheezing or crackles. Abdomen: Soft, nondistended, nontender, positive bowel sounds. ?No guarding or rebound tenderness. Neurologic: Alert and oriented x3, no gross neurological deficit, and patient able to move all 4 extremities. Extremities: No edema. Noted fistula in left upper extremity Skin: No rash or ecchymoses. Objective Labs 12/17/24 04:45 12/17/24 04:45 Labs: Laboratory Results - last 24 hr 12/15/24 12/15/24 12/15/24 14:35 16:00 19:57 WBC RBC Hgb Hct MCV MCH MCHC RDW Std Deviation Plt Count Neut % (Auto) Lymph % (Auto) [place] % (Auto) Eos % (Auto) Baso % (Auto) Neut # (Auto) Lymph # (Auto) [place] # (Auto) Eos # (Auto) Baso # (Auto) Immature Gran # (Auto) Absolute Nucleated RBC Immature Gran % Nucleated RBC % ESR 88 H Puncture Site ABG pH ABG pCO2 ABG pO2 ABG HCO3 ABG O2 Saturation ABG Base Excess VBG pH 7.50 VBG pCO2 33 L VBG pO2 40 VBG O2 Sat (Rand) 78 L VBG Base Excess 3 FiO2 Sodium 128 L Potassium 4.0 Chloride 83 L Carbon Dioxide 23.8 Anion Gap 21 H BUN 47 H Creatinine 6.5 H* Estim Creat Clear Calc 10.7 L eGFR 7 L* BUN/Creatinine Ratio 7 L Glucose 652 H* Estimated Ave Glu mg/dL Hemoglobin A1c Calculated Osmolality 300 H Lactic Acid 1.8 Calcium 9.2 Corrected Calcium 9.2 Phosphorus Magnesium 2.1 Total Bilirubin 0.3 ALT < 7 L Alkaline Phosphatase 106 Troponin I < 0.020 C-Reactive Prot, Quant 20.9 H B-Natriuretic Peptide 452 H Total Protein 7.8 Albumin 4.2 Globulin 3.6 H Albumin/Globulin Ratio 1.2 Lipase 24 Beta-Hydroxybutyrate/Acetoacetate 0.1 Procalcitonin 6.14 H TSH 1.29 Free T4 1.01 HCG, Qual Positive Beta HCG, Quant 7 Ur Collection Type Urine Color Urine Clarity Urine pH Ur Specific [place] Urine Protein Urine Glucose (UA) Urine Ketones Urine Blood Urine Nitrite Urine Bilirubin Urine Urobilinogen (Auto) Ur Leukocyte Esterase Urine RBC Urine WBC Ur Squamous Epith Cells Urine Bacteria Urine HCG, Qual 12/15/24 12/16/24 12/16/24 22:01 04:36 07:52 WBC 15.8 H RBC 2.68 L Hgb 8.7 L Hct 25.4 L MCV 95 MCH 32.5 MCHC 34.3 RDW Std Deviation 46.7 H Plt Count 278 Neut % (Auto) 85 H Lymph % (Auto) 6 L [place] % (Auto) 7 Eos % (Auto) 1 Baso % (Auto) 0 Neut # (Auto) 13.4 H Lymph # (Auto) 0.9 L [place] # (Auto) 1.1 H Eos # (Auto) 0.1 Baso # (Auto) 0.0 Immature Gran # (Auto) 0.23 H Absolute Nucleated RBC 0.00 Immature Gran % 2 H Nucleated RBC % 0 ESR Puncture Site Right Radial ABG pH 7.42 ABG pCO2 34 ABG pO2 58 L* ABG HCO3 22 ABG O2 Saturation 91 ABG Base Excess -2 VBG pH VBG pCO2 VBG pO2 VBG O2 Sat (Rand) VBG Base Excess FiO2 21 Sodium 129 L Potassium 3.6 Chloride 86 L Carbon Dioxide 20.0 Anion Gap 23 H BUN 51 H Creatinine 7.4 H* D Estim Creat Clear Calc 9.4 L eGFR 6 L* BUN/Creatinine Ratio 7 L Glucose [address] Glu mg/dL 278 H Hemoglobin A1c 11.3 H Calculated Osmolality 289 Lactic Acid Calcium 9.9 Corrected Calcium 9.9 Phosphorus 5.5 H Magnesium 2.1 Total Bilirubin 0.2 L ALT < 7 L Alkaline Phosphatase 96 Troponin I C-Reactive Prot, Quant B-Natriuretic Peptide Total Protein 7.3 Albumin 4.1 Globulin 3.2 Albumin/Globulin Ratio 1.3 Lipase Beta-Hydroxybutyrate/Acetoacetate Procalcitonin TSH Free T4 HCG, Qual Beta HCG, Quant Ur Collection Type Clean Catch Urine Color [place] Urine Clarity Turbid A Urine pH 6.5 Ur Specific [place] 1.014 Urine Protein 3+ A Urine Glucose (UA) 4+ A Urine Ketones 1+ A Urine Blood 1+ A Urine Nitrite Negative Urine Bilirubin Negative Urine Urobilinogen (Auto) Negative Ur Leukocyte Esterase Positive Urine RBC 76 H Urine WBC 11 H Ur Squamous Epith Cells 7 H Urine Bacteria 1+ A Urine HCG, Qual Negative 12/16/24 12/16/24 09:10 12:40 WBC RBC Hgb Hct MCV MCH MCHC RDW Std Deviation Plt Count Neut % (Auto) Lymph % (Auto) [place] % (Auto) Eos % (Auto) Baso % (Auto) Neut # (Auto) Lymph # (Auto) [place] # (Auto) Eos # (Auto) Baso # (Auto) Immature Gran # (Auto) Absolute Nucleated RBC Immature Gran % Nucleated RBC % ESR Puncture Site ABG pH ABG pCO2 ABG pO2 ABG HCO3 ABG O2 Saturation ABG Base Excess VBG pH VBG pCO2 VBG pO2 VBG O2 Sat (Rand) VBG Base Excess FiO2 Sodium Potassium Chloride Carbon Dioxide Anion Gap BUN Creatinine Estim Creat Clear Calc eGFR BUN/Creatinine Ratio Glucose Estimated Ave Glu mg/dL Hemoglobin A1c Calculated Osmolality Lactic Acid 3.7 H 1.7 Calcium Corrected Calcium Phosphorus Magnesium Total Bilirubin ALT Alkaline Phosphatase Troponin I C-Reactive Prot, Quant B-Natriuretic Peptide Total Protein Albumin Globulin Albumin/Globulin Ratio Lipase Beta-Hydroxybutyrate/Acetoacetate Procalcitonin TSH Free T4 HCG, Qual Beta HCG, Quant Ur Collection Type Urine Color Urine Clarity Urine pH Ur Specific [place] Urine Protein Urine Glucose (UA) Urine Ketones Urine Blood Urine Nitrite Urine Bilirubin Urine Urobilinogen (Auto) Ur Leukocyte Esterase Urine RBC Urine WBC Ur Squamous Epith Cells Urine Bacteria Urine HCG, Qual ABG Interpretation ABG results: 12/15/24 12/16/24 16:00 07:52 ABG pH 7.42 ABG pCO2 34 ABG pO2 58 L* ABG HCO3 22 ABG O2 Saturation 91 ABG Base Excess -2 VBG pH 7.50 VBG pCO2 33 L VBG pO2 40 VBG Base Excess 3 Quality Measures Quality Measures VTE prophylaxis and none Assessment & Plan Assessment Current Active Medications: Generic Name Dose Route Start Last Admin Trade Name Freq PRN Reason Stop Dose Admin Acetaminophen 650 mg 12/15/24 23:32 12/16/24 10:46 Acetaminophen 325 Mg Tablet PO 01/14/25 23:31 650 mg Q6H PRN Administration Fever >100.4 or pain Dextrose 25 ml 12/15/24 23:32 Dextrose 50%-Water Inj 50 Ml Syringe IV 01/14/25 23:31 Q15MIN PRN BG 50-70 responsive npo pt Dextrose 50 ml 12/15/24 23:32 Dextrose 50%-Water Inj 50 Ml Syringe IV 01/14/25 23:31 Q15MIN PRN BG <50 OR BG <70 & pt unresponsive Docusate Sodium 100 mg 12/15/24 23:32 Docusate Sod 100 Mg Capsule PO 01/14/25 23:31 QDAY PRN CONSTIPATION Protocol Doxycycline Hyclate 100 mg 12/16/24 11:00 12/16/24 11:13 Doxycycline 100 Mg Tablet PO 12/23/24 10:59 100 mg BID MICHELLE Administration Glucagon 1 mg 12/15/24 23:32 Glucagon Inj 1 Mg Vial IM Q15MIN PRN BG <70, and no IV access Heparin Sodium (Porcine) 5,000 unit 12/16/24 09:00 12/16/24 10:46 Heparin Sod Inj 5000 Unit/Ml Vial SC 12/30/24 08:59 5,000 unit Q12HR MICHELLE Administration Ceftriaxone Sodium/Dextrose 1 gm in 50 mls @ 100 mls/hr 12/15/24 23:45 12/16/24 00:24 Rocephin/D5w 1gm Iv Premix IV 12/22/24 23:44 Infused QDAY@2100 MICHELLE Infusion Albumin Human 25 gm in 100 mls @ 100 mls/min 12/16/24 14:42 Albuminar-25 Ivpb IV 12/19/24 14:41 PRN PRN DIALYSIS Insulin Glargine 25 unit 12/16/24 09:00 12/16/24 08:41 Insulin Glargine (Lantus) 5 Unit/0.05 Ml (Per 5 Units) SC 01/15/25 08:59 25 unit QDAY MICHELLE Administration Insulin Human Lispro 0 unit 12/16/24 00:00 12/16/24 12:06 Insulin Lispro (Admelog) 1 Unit/0.01 Ml Unit SC 01/15/25 00:00 4 unit Q6HR MICHELLE Administration Protocol Ondansetron HCl 4 mg 12/15/24 23:32 12/16/24 02:50 Ondansetron Inj 2 Mg/Ml Inj 2 Ml IVP 01/14/25 23:31 4 mg Q6H PRN Administration NAUSEA OR VOMITING Protocol Pharmacy Consult 1 each 12/16/24 00:53 Pharmacy Renal Dose Adjustment 1 Ea XX 01/15/25 00:52 PRN PRN CONSULT Sennosides 1 tab 12/15/24 23:32 Senna Tablet PO 01/14/25 23:31 QDAY PRN constipation Protocol Plan This [id number] y/o F with PMHx significant for ESRD (T//Wed), CHF, type 2 diabetes, hypothyroidism, dermoid tumor presents with chief complaint nausea, vomiting, fever x 1 day, admitted for infection, UTI versus pneumonia. #Intractable nausea/vomiting #Sepsis 2/2 Pneumonia and #UTI Patient presented complaint of fever, intractable nausea and vomiting x 1 day. Patient has nonspecific symptoms, denies shortness of breath, cough, dysuria. Patient has elevated Pro-Sebastian 6.14, anion gap acidosis. CT C/A/P showed left lower lobe consolidation concerning for pneumonia versus malignancy. 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 Of note patient positive beta-hCG test but no intrauterine , likely secreting from the tumor #Type 2 diabetes, patient history #Hyperglycemia Patient history of type 2 diabetes. Patient severely hyperglycemic on presentation, serum glucose 652. Beta hydroxybutyrate 0.1. Patient received 10 units insulin x 1 in the ED, mild improvement. Patient also has pseudohyponatremia, sodium 128, corrected sodium 141. 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 Patient presents with high anion gap without metabolic acidosis, bicarb 23.8. Lactic acid 1.8, hydroxybutyrate 0.1, serum osmolality 300. - Child Monitor Dr. Larry consulted, appreciate recommendations - ESRD as per patient's usual schedule, Got HD as of 12/16/2024 - Avoid nephrotoxins - Renally dose medications #Hypothyroidism #CHF Patient history as stated. Patient unsure what dosage of her medications she takes, medical reconciliation pending. - Resume home meds after reconciliation DVT prophylaxis: Heparin GI prophylaxis: None Diet: Renal diet Lines: Peripheral IV Code status: Full code Patient plan of care was discussed with the attending physician, Dr. Hernandez and senior resident Dr. Jocelyn Orourke, PGY1 Attending Provider Attestation/Addendum Efrain, Dorys Hernandez, DO, attest that I was physically present for the duffy portions of the service and evaluated the patient with the resident and I reviewed and discussed the case with the resident and agree with the resident's findings and plans of care as documented above patient seen and eval this a.m. She states that she has been feeling a well since Wednesday. Patient states that she has had a dry cough which leads to dry heaving and vomiting. She also endorses having diarrhea 3-4 times a day. She denies anyone at home with these symptoms. She did eat shrimp ceviche on Wednesday prior to her episodes of diarrhea. She denies any blood in vomitus or stool. Patient urinates very little every 3 to 4 days or so. She denies any dysuria. She states that she did not have any fevers until coming to the hospital. She also endorses having generalized weakness and chills. Patient does not have any tunneled catheter. Fistula appears clean dry and intact. Blood glucose has been better controlled at this time. Patient is not in DKA. Continue with glargine 25 units nightly and insulin sliding scale. This is what patient uses at home for her insulin regimen. However, she states that it has been hard to control since she started feeling sick. Patient continues to have fevers in the ER. Explained to patient that she has a density noted on chest CT which she will need repeat chest CT in 6 to 8 weeks after resolution of her symptoms. Will continue with broad-spectrum antibiotics at this time.
[2024-12-16] MEDS: ALBUMIN HUMAN 25% IVPB 25 GM/100 ML BTL IV (16:37)
--- NOTE | 2024-12-16 16:37 | PC.NURSE ---
BP LOW, UF OFF WILL ADMIN PRN ALBUMIN AND CONT. TO MONITOR
--- NOTE | 2024-12-16 16:53 | PC.NURSE ---
BP TRENDING UP PT DENIES S/S IF HYPOTENSION OR CONT'D. NAUSEA UF GOAL LOWERED TO 1.5L TOLERATED WILL CONT. TO MONITOR
--- NOTE | 2024-12-16 17:03 | PC.NURSE ---
BP LOW PT DENIES ALL COMPLAINTS 100ML NS BOLUS ADMINISTERED, PER MD UF GOAL LOWERED TO 1.2L TOLERATED WILL CONT. TO MONITOR
--- NOTE | 2024-12-16 17:32 | PC.NURSE ---
TX TERMINATED EARLY AND RAPID RESPONSE CALLED D/T TACHYCARDIA, LOW GRADE FEVER, NAUSEA AND CHILLS W/ PT NOTED TO BE SHAKY. NOTIFED.
--- NOTE | 2024-12-16 17:36 | PD.RESEVENT ---
Documentation for date of: 12/16/24 Event Note Event Note: Rapid Response Room: 358 Time: 17:30 Reason for Call: Tachycardia and rigors Patient presentation: Rapid response called while patient in dialysis room 309 due to tachycardia in the 130s, temp up to 99.0, and having chills. BP 165/63. Patient is an overnight admit from last night for sepsis secondary to pneumonia and UTI, just went up from ED room 18 and had received 2 hours 42 min of dialysis with 18 min to go. Patient was oriented x3, alert and conversive, appeared uncomfortable and reported feeling nauseous with full body aches. Patient was shaking. Events: Dialysis was stopped, patient was transferred to Tele, labs and meds ordered as below Assessment: Most likely rigors in the setting of sepsis New orders: CBC, CMP, lactic acid, new blood cultures, metoclopramide 10 mg IV x1, discontinued ceftriaxone, started cefepime 1 gm qday in the setting of previous positive pseudomonas cultures Plan discussed with Todd Farnsworth, PGY-3, Margo Clarke, PGY-2, and Arun Murray, PGY-1 who responded to the rapid.
[2024-12-16 17:51] LABS: Lactate (Lactic Acid) 3.8 mMol/L (0.4-2.0)
[2024-12-16 17:54] LABS: Basophils % (Auto) 0 % (0-2.5); Eosinophils # (Auto) 0.1 Thou/mm3 (0.0-0.5); Eosinophils % (Auto) 1 % (0-10); Hematocrit 24.8 % (36.0-46.0); Immature Granulocytes % (Auto) 2 % (0-0); Immature Granulocytes Auto 0.26 Thou/mm3 (0.00-0.00); Lymphocytes # (Auto) 1.5 Thou/mm3 (1.0-4.8); Lymphocytes % (Auto) 9 % (10-50); Mean Corpuscular HGB Conc 34.7 g/dl (31.0-37.0); Mean Corpuscular Hemoglobin 32.5 pg (25.0-35.0); Mean Corpuscular Volume 94 fL (80-100); Monocytes # (Auto) 1.4 Thou/mm3 (0.0-0.8); Monocytes % (Auto) 8 % (0-12); Neutrophils # (Auto) 14.2 Thou/mm3 (1.8-7.7); Neutrophils % (Auto) 81 % (37-80); Nucleated Red Blood Cell % 0 /100 WBC (0); Platelet Count 268 Thou/mm3 (140-440); RDW Standard Deviation 46.7 fL (36.4-46.3); Red Blood Count 2.65 Miln/mm3 (4.00-5.20); White Blood Count 17.5 Thou/mm3 (3.6-11.0)
[2024-12-16 17:59] LABS: Hemoglobin 8.6 g/dL (12.0-16.0)
--- NOTE | 2024-12-16 18:01 | PC.NURSE ---
Report Given to LEE Galicia
[2024-12-16] MEDS: CEFEPIME INJ 1 GM in SODIUM CHLORIDE 0.9% (Popper) 50 ML IV (18:41)
[2024-12-16 19:13] LABS: Alanine Aminotransferase < 7 U/L (10-49); Albumin, Serum 4.5 gm/dL (3.5-5.0); Albumin/Globulin Ratio 1.4 (1.2-2.2); Alkaline Phosphatase 90 U/L (46-116); Anion Gap 20 (7-16); BUN/Creatinine Ratio 5 Ratio (12-20); Bilirubin,Total 0.3 mg/dL (0.3-1.2); Blood Urea Nitrogen 19 mg/dL (9-23); Carbon Dioxide 22.5 mMol/L (20.0-31.0); Chloride 92 mMol/L (98-107); Creatinine (Component) 3.5 mg/dL (0.6-1.3); Estimated Creatinine Clearance 19.8 mL/min (>60); Globulin 3.2 gm/dL (2.3-3.5); Glucose 165 mg/dL (74-106); Osmolality,Calculated 274 (275-295); Potassium 3.5 mMol/L (3.4-5.1); Sodium 134 mMol/L (136-145); Total Protein 7.7 gm/dL (5.7-8.2); eGFR 15 See Note
[2024-12-16 20:47] LABS: Reflex Lactate? Y
[2024-12-16 21:12] LABS: Lactic Acid, 3 HR 2.1 mMol/L (0.4-2.0)
[2024-12-17] VITALS (17 sets, daily range): BP systolic 119–168; BP diastolic 69–104; PULSE 77–134; RESP 15–27; TEMP 36.2–38.8; O2SAT 93–100
--- NOTE | 2024-12-17 | PC.NURSE ---
Patient does not know the specific home meds she takes and the dosages. She said her daughter can bring her meds in the AM
[2024-12-17] MEDS: ACETAMINOPHEN 325 MG TABLET 650 MG PO ×4 (03:09→22:53)
[2024-12-17 05:24] LABS: Basophils % (Auto) 0 % (0-2.5); Eosinophils # (Auto) 0.1 Thou/mm3 (0.0-0.5); Eosinophils % (Auto) 1 % (0-10); Hematocrit 25.7 % (36.0-46.0); Hemoglobin 8.6 g/dL (12.0-16.0); Immature Granulocytes % (Auto) 1 % (0-0); Lymphocytes # (Auto) 0.9 Thou/mm3 (1.0-4.8); Lymphocytes % (Auto) 6 % (10-50); Mean Corpuscular HGB Conc 33.5 g/dl (31.0-37.0); Mean Corpuscular Hemoglobin 32.1 pg (25.0-35.0); Mean Corpuscular Volume 96 fL (80-100); Monocytes # (Auto) 0.9 Thou/mm3 (0.0-0.8); Monocytes % (Auto) 6 % (0-12); Neutrophils # (Auto) 11.9 Thou/mm3 (1.8-7.7); Neutrophils % (Auto) 85 % (37-80); Nucleated Red Blood Cell % 0 /100 WBC (0); Platelet Count 245 Thou/mm3 (140-440); RDW Standard Deviation 48.2 fL (36.4-46.3); Red Blood Count 2.68 Miln/mm3 (4.00-5.20)
--- NOTE | 2024-12-17 07:11 | ESPR_ITS ---
Documentation for date of: 12/17/24 Subjective Subjective Interval history: Examined at bedside side. Had RR during dialysis yesterday for tachycardia 130s, T99 and chills, labs showed lactic acidosis which resolved after fluids. She still tachycardic, spiking fevers, and having chills, likely 2/UTI. Will denies headaches, chest pain, sob, cough, GI or urinary symptoms. BP 163/79, HR 130, T101.0, satting well on 2 L NC. WBC 14.0 and improving, Hgb 8.6 and stable. Potassium 3.1, repleted. CR 5.0, remainder CHEM panel relatively unchanged. Continued on ANTIBIOTICS for GNR UTI. Blood cultures pending. Exam Vital Signs Temp Pulse Resp BP Pulse Ox O2 Del Method O2 Flow Rate 99.1 F 82 20 160/85 H 97 Room Air 2 12/17/24 06:11 12/17/24 06:11 12/17/24 04:14 12/17/24 04:14 12/17/24 04:14 12/17/24 04:14 12/17/24 00:00 Narrative Exam General: Awake. HEENT: Normocephalic, atraumatic, mucous membranes moist. Heart: Regular rate and rhythm, pansystolic murmur heard in all areas. Lungs: Clear to auscultation with no wheezing or crackles. Abdomen: Soft, nondistended, nontender, positive bowel sounds. ?No guarding or rebound tenderness. Neurologic: Alert and oriented x3, no gross neurological deficit, and patient able to move all 4 extremities. Extremities: No edema. Noted fistula in left upper extremity Skin: No rash or ecchymoses. Objective Labs 12/18/24 05:23 12/18/24 05:23 Labs: Laboratory Results - last 24 hr 12/16/24 12/16/24 12/16/24 07:52 09:10 12:40 WBC RBC Hgb Hct MCV MCH MCHC RDW Std Deviation Plt Count Neut % (Auto) Lymph % (Auto) [place] % (Auto) Eos % (Auto) Baso % (Auto) Neut # (Auto) Lymph # (Auto) [place] # (Auto) Eos # (Auto) Baso # (Auto) Immature Gran # (Auto) Absolute Nucleated RBC Immature Gran % Nucleated RBC % Puncture Site Right Radial ABG pH 7.42 ABG pCO2 34 ABG pO2 58 L* ABG HCO3 22 ABG O2 Saturation 91 ABG Base Excess -2 FiO2 21 Sodium Potassium Chloride Carbon Dioxide Anion Gap BUN Creatinine Estim Creat Clear Calc eGFR BUN/Creatinine Ratio Glucose Calculated Osmolality Lactic Acid 3.7 H 1.7 Calcium Corrected Calcium Total Bilirubin ALT Alkaline Phosphatase Total Protein Albumin Globulin Albumin/Globulin Ratio 12/16/24 12/16/24 12/17/24 17:30 21:05 04:45 WBC 17.5 H 14.0 H RBC 2.65 L 2.68 L Hgb 8.6 L 8.6 L Hct 24.8 L 25.7 L MCV 94 96 MCH 32.5 32.1 MCHC 34.7 33.5 RDW Std Deviation 46.7 H 48.2 H Plt Count 268 245 Neut % (Auto) 81 H 85 H Lymph % (Auto) 9 L 6 L [place] % (Auto) 8 6 Eos % (Auto) 1 1 Baso % (Auto) 0 0 Neut # (Auto) 14.2 H 11.9 H Lymph # (Auto) 1.5 0.9 L [place] # (Auto) 1.4 H 0.9 H Eos # (Auto) 0.1 0.1 Baso # (Auto) 0.0 0.0 Immature Gran # (Auto) 0.26 H 0.20 H Absolute Nucleated RBC 0.00 0.00 Immature Gran % 2 H 1 H Nucleated RBC % 0 0 Puncture Site ABG pH ABG pCO2 ABG pO2 ABG HCO3 ABG O2 Saturation ABG Base Excess FiO2 Sodium 134 L Potassium 3.5 Chloride 92 L Carbon Dioxide 22.5 Anion Gap 20 H BUN 19 Creatinine 3.5 H D Estim Creat Clear Calc 19.8 L eGFR 15 L BUN/Creatinine Ratio 5 L Glucose 165 H D Calculated Osmolality 274 L Lactic Acid 3.8 H 2.1 H Calcium 10.0 Corrected Calcium 10.0 Total Bilirubin 0.3 ALT < 7 L Alkaline Phosphatase 90 Total Protein 7.7 Albumin 4.5 Globulin 3.2 Albumin/Globulin Ratio 1.4 ABG Interpretation ABG results: 12/15/24 12/16/24 16:00 07:52 ABG pH 7.42 ABG pCO2 34 ABG pO2 58 L* ABG HCO3 22 ABG O2 Saturation 91 ABG Base Excess -2 VBG pH 7.50 VBG pCO2 33 L VBG pO2 40 VBG Base Excess 3 Quality Measures Quality Measures VTE prophylaxis and none Assessment & Plan Assessment Current Active Medications: Generic Name Dose Route Start Last Admin Trade Name [place] PRN Reason Stop Dose Admin Acetaminophen 650 mg 12/15/24 23:32 12/17/24 03:09 Acetaminophen 325 Mg Tablet PO 01/14/25 23:31 650 mg Q6H PRN Administration Fever >100.4 or pain Dextrose 25 ml 12/15/24 23:32 Dextrose 50%-Water Inj 50 Ml Syringe IV 01/14/25 23:31 Q15MIN PRN BG 50-70 responsive npo pt Dextrose 50 ml 12/15/24 23:32 Dextrose 50%-Water Inj 50 Ml Syringe IV 01/14/25 23:31 Q15MIN PRN BG <50 OR BG <70 & pt unresponsive Docusate Sodium 100 mg 12/15/24 23:32 Docusate Sod 100 Mg Capsule PO 01/14/25 23:31 QDAY PRN CONSTIPATION Protocol Doxycycline Hyclate 100 mg 12/16/24 11:00 12/16/24 21:09 Doxycycline 100 Mg Tablet PO 12/23/24 10:59 100 mg BID MICHELLE Administration Glucagon 1 mg 12/15/24 23:32 Glucagon Inj 1 Mg Vial IM Q15MIN PRN BG <70, and no IV access Heparin Sodium (Porcine) 5,000 unit 12/16/24 09:00 12/16/24 21:12 Heparin Sod Inj 5000 Unit/Ml Vial SC 12/30/24 08:59 5,000 unit Q12HR MICHELLE Administration Albumin Human 25 gm in 100 mls @ 100 mls/min 12/16/24 14:42 12/16/24 16:37 Albuminar-25 Ivpb IV 12/19/24 14:41 100 mls/min PRN PRN Administration DIALYSIS Cefepime HCl 1 gm/ Sodium 50 mls @ 100 mls/hr 12/16/24 18:00 12/16/24 19:11 Chloride IV 12/23/24 17:59 Infused Q24H MICHELLE Infusion Insulin Glargine 25 unit 12/16/24 21:00 12/16/24 21:09 Insulin Glargine (Lantus) 5 Unit/0.05 Ml (Per 5 Units) SC 01/15/25 20:59 25 unit HS MICHELLE Administration Insulin Human Lispro 0 unit 12/16/24 17:00 12/16/24 21:11 Insulin Lispro (Admelog) 1 Unit/0.01 Ml Unit SC 01/15/25 16:59 2 unit ACHS MICHELLE Administration Protocol Ondansetron HCl 4 mg 12/15/24 23:32 12/16/24 16:26 Ondansetron Inj 2 Mg/Ml Inj 2 Ml IVP 01/14/25 23:31 4 mg Q6H PRN Administration NAUSEA OR VOMITING Protocol Pharmacy Consult 1 each 12/16/24 00:53 Pharmacy Renal Dose Adjustment 1 Ea XX 01/15/25 00:52 PRN PRN CONSULT Sennosides 1 tab 12/15/24 23:32 Senna Tablet PO 01/14/25 23:31 QDAY PRN constipation Protocol Plan 54 y/o F with PMHx significant for ESRD (T//Wed), CHF, type 2 diabetes, hypothyroidism, dermoid tumor presents with chief complaint nausea, vomiting, fever x 1 day, admitted for infection, UTI versus pneumonia. Had rapid response yesterday in HD, HR 130, fever 99 T101.9, 160/85, HR 120s, on 2 L Shivering WBC improved 14, Hgb stable 8.6 Potassium 3.1, CR 5.0 high, BUN 27, GLUCOSE 155, Lactic acid 2.1 yesterday, ordered stat repeat Urine grew GNR, 24-hour blood pending BG 197 HD -1.7 #Intractable nausea/vomiting #Sepsis 2/2 Pneumonia and #UTI GNR Patient presented complaint of fever, intractable nausea and vomiting x 1 day. Patient has nonspecific symptoms, denies shortness of breath, cough, dysuria. Patient has elevated Pro-Sebastian 6.14, anion gap acidosis. CT C/A/P showed left lower lobe consolidation concerning for pneumonia versus malignancy. Pulse rate 118 bpm, temperature 100.9 ?F at the time of admission, leukocytosis + urinary tract infection/pneumonia Urine grew GNR. Continue spiking fever and chills. ANTIBIOTICS broadened. ? Discontinue DOXYCYCLINE (12/16 to 12/17) - Continue Cefepime 1 g IV daily (12/16 to present) ? Started VANCOMYCIN (12/17 to present) - Zofran as needed - Blood and urine cultures ordered, Pending - Renal diet # Lactic acidosis (resolved) - Lactate at the time of admission is 3.7, initially improved, but up trended to 3.8, then resolved after fluids. ? 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 Of note patient positive beta-hCG test but no intrauterine , likely secreting from the tumor #Type 2 diabetes, patient history #Hyperglycemia Patient history of type 2 diabetes. Patient severely hyperglycemic on presentation, serum glucose 652. Beta hydroxybutyrate 0.1. Patient received 10 units insulin x 1 in the ED, mild improvement. Patient also has pseudohyponatremia, sodium 128, corrected sodium 141. A1c is 11.3 ? INSULIN GLARGINE 25 units HS - ISS - Lantus 25 units SC HS - will adjust insulin based on fasting blood sugars #ESRD on HD TTS Patient has history of ESRD, with seed analyst Dr. Larry, receives dialysis Wednesday, , Wednesday. Patient presents with high anion gap without metabolic acidosis, bicarb 23.8. Lactic acid 1.8, hydroxybutyrate 0.1, serum osmolality 300. - Test Fixture Assembler Dr. Larry consulted, appreciate recommendations - ESRD as per patient's usual schedule, Got HD as of 12/16/2024 - Avoid nephrotoxins - Renally dose medications #Hypothyroidism #CHF Patient history as stated. Patient unsure what dosage of her medications she takes, medical reconciliation pending. TSH 1.29 on 12/15/24 - Resume home meds after reconciliation DVT prophylaxis: Heparin GI prophylaxis: None Diet: Renal diet Lines: Peripheral IV Code status: Full code Case was discussed with attending physician and senior resident. Jairo Dejesus DO PGYI Attending Provider Attestation/Addendum I, Dorys Hernandez DO, attest that I was physically present for the duffy portions of the service and evaluated the patient with the resident and I reviewed and discussed the case with the resident and agree with the resident's findings and plans of care as documented above Patient seen and eval this a.m. She states that she is having chills throughout the night and fevers. Tmax of 103.1. Blood glucose better controlled at this time. Switched to cefepime due to rigors that resulted in rapid response during dialysis yesterday. Will add vancomycin and discontinue doxycycline at this time for broad-spectrum antibiotics as patient is a dialysis patient and has been exposed to healthcare environment. Will start on IV fluids and monitor volume status closely. Continue to f/u with cultures
[2024-12-17 07:56] LABS: Alanine Aminotransferase < 7 U/L (10-49); Albumin, Serum 3.9 gm/dL (3.5-5.0); Albumin/Globulin Ratio 1.3 (1.2-2.2); Alkaline Phosphatase 81 U/L (46-116); Anion Gap 15 (7-16); BUN/Creatinine Ratio 5 Ratio (12-20); Bilirubin,Total 0.2 mg/dL (0.3-1.2); Blood Urea Nitrogen 27 mg/dL (9-23); Calcium 9.5 mg/dL (8.3-10.6); Calcium (Corrected) 9.6 mg/dL (8.5-10.1); Carbon Dioxide 27.8 mMol/L (20.0-31.0); Chloride 95 mMol/L (98-107); Estimated Creatinine Clearance 13.9 mL/min (>60); Glucose 155 mg/dL (74-106); Osmolality,Calculated 283 (275-295); Phosphorous 3.1 mg/dL (2.4-5.1); Potassium 3.1 mMol/L (3.4-5.1); Sodium 138 mMol/L (136-145); Total Protein 6.9 gm/dL (5.7-8.2); eGFR 10 See Note
[2024-12-17] MEDS: DOXYCYCLINE 100 MG TABLET PO (08:49)
[2024-12-17] MEDS: HEPARIN SOD INJ 5000 UNIT/ML VIAL SC ×2 (08:50→20:16)
[2024-12-17] MEDS: SODIUM CHLORIDE 0.9% 1000 ML 1,000 ML 80 ML IV ×2 (09:43→22:59)
[2024-12-17] MEDS: SODIUM CHLORIDE 0.9% 500 ML 500 ML 999 ML IV (09:43)
[2024-12-17 09:53] LABS: Lactate (Lactic Acid) 1.2 mMol/L (0.4-2.0)
[2024-12-17] MEDS: VANCOMYCIN/WATER 1250 MG IVPB 250 ML 120 MG IV (10:10)
[2024-12-17 11:42] LABS: Cocci Serology, IgM Positive (Negative)
[2024-12-17 11:43] LABS: Cocid Sro, CF/ID (UCD) NO CHG* See Sep Rpt
[2024-12-17] MEDS: POTASSIUM CHL 10 mEq IVPB 10 MEQ/100 ML BAG 100 MEQ IV ×4 (12:38→17:25)
[2024-12-17] MEDS: Magnesium Sulfate 2 GM Ivpb 2 GM/50 ML BAG IV (12:38)
--- NOTE | 2024-12-17 15:00 | PC.SS ---
Haleigh Tanner is 54 year old female admitted to [facility] for Nausea and Vomitin. SS conducted bedside contact with the patient to complete initial assessment and to discuss discharge planning.? SW used all precautionary measures to complete initial. Role and reason for the contact was explained to Haleigh. Pt is alert and oriented times 4. Pt gave verbal authorization for family to be in room while assessment was completed. Patient confirmed demographic information and lives with family at address on facesheet. Patient identifies Salina Mar, daughter, as her surrogate decision maker. Pt states prior to hospitalization pt is able to complete all ADL?s independently. Pt uses walker, and cane. Pt has O2 at home; unable to remember provider other than provider is in [place]. Pt has diabetes and manages this with injections. Pt does has dialysis with Dr Mcclure?s service chair time is T, , SAT at 5:45AM. Pts PCP is Dr. Sarah Anderson, last visit was about a month ago. Pharmacy of choice is [facility]. Pt has advance life directive. Pt does not have history of mental health or substance. Discharge options discussed and the pt will return home. Pt is open to HH if necessary and did not have a preference on provider. Family will provide transportation upon DC. No further intervention required at this time, social work job titles would be available to address any further concerns. DC Plan: Home Contact: Salina Mar, abrahan, Address: Confirmed on face sheet PCP: Sarah Anderson
[2024-12-17] MEDS: INSULIN LISPRO (AdmeLOG) 1 UNIT/0.01 ML UNIT SC ×2 (16:33→20:16)
[2024-12-17] MEDS: CEFEPIME INJ 1 GM in SODIUM CHLORIDE 0.9% (Popper) 50 ML IV (17:25)
[2024-12-17] MEDS: INSULIN GLARGINE (Lantus) 5 UNIT/0.05 ML (PER 5 UNITS) 25 UNIT SC (20:15)
--- NOTE | 2024-12-17 20:58 | PC.NURSE ---
REPORT HANDOFF GIVEN TO LEE PAKRER
[2024-12-17 21:06] LABS: Hepatitis A Antibody IgM Non Reactive (Non React); Hepatitis B Core Antibody IgM Non Reactive (Non React); Hepatitis B Surface Ab NonReact(Not Immune) (Immune); Hepatitis B Surface Antigen Non Reactive (Non React); Hepatitis C Antibody Non Reactive (Non React)
[2024-12-17] MEDS: ONDANSETRON INJ 2 MG/ML INJ 2 ML 4 MG IVP (22:53)
[2024-12-18] VITALS (9 sets, daily range): BP systolic 111–163; BP diastolic 79–107; PULSE 85–127; RESP 17–23; TEMP 36.9–39.3; O2SAT 92–100; BMI 32.0
[2024-12-18 05:51] LABS: Basophils # (Auto) 0.1 Thou/mm3 (0.0-0.2); Basophils % (Auto) 0 % (0-2.5); Eosinophils # (Auto) 0.2 Thou/mm3 (0.0-0.5); Eosinophils % (Auto) 1 % (0-10); Hematocrit 26.3 % (36.0-46.0); Immature Granulocytes % (Auto) 2 % (0-0); Immature Granulocytes Auto 0.24 Thou/mm3 (0.00-0.00); Lymphocytes # (Auto) 0.9 Thou/mm3 (1.0-4.8); Lymphocytes % (Auto) 7 % (10-50); Mean Corpuscular HGB Conc 32.3 g/dl (31.0-37.0); Mean Corpuscular Hemoglobin 32.4 pg (25.0-35.0); Mean Corpuscular Volume 100 fL (80-100); Monocytes # (Auto) 0.7 Thou/mm3 (0.0-0.8); Monocytes % (Auto) 6 % (0-12); Neutrophils # (Auto) 10.9 Thou/mm3 (1.8-7.7); Neutrophils % (Auto) 84 % (37-80); Nucleated Red Blood Cell % 0 /100 WBC (0); Platelet Count 211 Thou/mm3 (140-440); RDW Standard Deviation 50.8 fL (36.4-46.3); Red Blood Count 2.62 Miln/mm3 (4.00-5.20)
[2024-12-18 06:15] LABS: Hemoglobin 8.5 g/dL (12.0-16.0)
[2024-12-18 06:33] LABS: Alanine Aminotransferase 8 U/L (10-49); Albumin, Serum 3.5 gm/dL (3.5-5.0); Albumin/Globulin Ratio 1.3 (1.2-2.2); Alkaline Phosphatase 84 U/L (46-116); Anion Gap 15 (7-16); BUN/Creatinine Ratio 6 Ratio (12-20); Bilirubin,Total < 0.2 mg/dL (0.3-1.2); Blood Urea Nitrogen 36 mg/dL (9-23); Calcium 8.9 mg/dL (8.3-10.6); Calcium (Corrected) 9.3 mg/dL (8.5-10.1); Carbon Dioxide 23.9 mMol/L (20.0-31.0); Chloride 96 mMol/L (98-107); Creatinine (Component) 6.2 mg/dL (0.6-1.3); Estimated Creatinine Clearance 11.2 mL/min (>60); Globulin 2.8 gm/dL (2.3-3.5); Glucose 180 mg/dL (74-106); Magnesium 2.3 mg/dL (1.6-2.6); Osmolality,Calculated 283 (275-295); Phosphorous 3.4 mg/dL (2.4-5.1); Potassium 3.4 mMol/L (3.4-5.1); Sodium 135 mMol/L (136-145); Total Protein 6.3 gm/dL (5.7-8.2); Vancomycin,Random 31.9 mcg/mL; eGFR 8 See Note
--- NOTE | 2024-12-18 08:42 | ESPR_ITS ---
<Statement entered by Jaskaran Banks MD - 12/18/24 13:43> Patient endorsing chills overnight, temperature of 100.1 F. We will continue with cefepime and vancomycine. WBC is downtrending, patient to have hemodialysis tomorrow (last session on 12/16/24). Pending final UCx and BCx. I discussed with and supervised the international travel consultant physician involved in the care of this patient. Patient assessment and plan was discussed with entire medicine team, including my attending. I agree with the assessment and plan as documented by international travel consultant doctor. Patient care was discussed with my attending physician Dr. Mary Banks, PGY-2 Documentation for date of: 12/18/24 Subjective Subjective Interval history: No acute overnight events. Continues to spike fever, tachycardic, reporting chills and feeling nauseated. BP 111/81, HR 117, Tmax 100.2. Reporting increased cough this morning with white sputum. Cocci IgM returned positive, FLUCONAZOLE started, sputum culture pending. Continued on VANCOMYCIN and CEFEPIME for GNR UTI. Next HD session tomorrow 12/19/2024. Exam Vital Signs Temp Pulse Resp BP Pulse Ox O2 Del Method O2 Flow Rate 98.6 F 117 H 17 111/81 92 L Nasal Cannula 3 12/18/24 08:00 12/18/24 08:00 12/18/24 08:00 12/18/24 08:00 12/18/24 08:00 12/18/24 08:00 12/18/24 08:00 Narrative Exam General: Awake. HEENT: Normocephalic, atraumatic, mucous membranes moist. Heart: Regular rate and rhythm, pansystolic murmur heard in all areas. Lungs: Clear to auscultation with no wheezing or crackles. Abdomen: Soft, nondistended, nontender, positive bowel sounds. ?No guarding or rebound tenderness. Neurologic: Alert and oriented x3, no gross neurological deficit, and patient able to move all 4 extremities. Extremities: No edema. Noted fistula in left upper extremity Skin: No rash or ecchymoses. Objective Labs 12/19/24 05:25 12/19/24 05:25 Labs: Laboratory Results - last 24 hr 12/16/24 12/16/24 12/17/24 11:34 12:40 09:46 WBC RBC Hgb Hct MCV MCH MCHC RDW Std Deviation Plt Count Neut % (Auto) Lymph % (Auto) [place] % (Auto) Eos % (Auto) Baso % (Auto) Neut # (Auto) Lymph # (Auto) [place] # (Auto) Eos # (Auto) Baso # (Auto) Immature Gran # (Auto) Absolute Nucleated RBC Immature Gran % Nucleated RBC % Sodium Potassium Chloride Carbon Dioxide Anion Gap BUN Creatinine Estim Creat Clear Calc eGFR BUN/Creatinine Ratio Glucose Calculated Osmolality Lactic Acid 1.2 Calcium Corrected Calcium Phosphorus Magnesium Total Bilirubin ALT Alkaline Phosphatase Total Protein Albumin Globulin Albumin/Globulin Ratio Random Vancomycin Coccidioides IgM Ab Positive A Hepatitis A IgM Ab Non Reactive Hep Bs Antigen Non Reactive Hep Bs Antibody NonReact(Not Immune) L Hep B Core IgM Ab Non Reactive Hepatitis C Antibody Non Reactive 12/18/24 05:23 WBC 13.0 H RBC 2.62 L Hgb 8.5 L Hct 26.3 L MCV 100 MCH 32.4 MCHC 32.3 RDW Std Deviation 50.8 H Plt Count 211 D Neut % (Auto) 84 H Lymph % (Auto) 7 L [place] % (Auto) 6 Eos % (Auto) 1 Baso % (Auto) 0 Neut # (Auto) 10.9 H Lymph # (Auto) 0.9 L [place] # (Auto) 0.7 Eos # (Auto) 0.2 Baso # (Auto) 0.1 Immature Gran # (Auto) 0.24 H Absolute Nucleated RBC 0.00 Immature Gran % 2 H Nucleated RBC % 0 Sodium 135 L Potassium 3.4 Chloride 96 L Carbon Dioxide 23.9 Anion Gap 15 BUN 36 H Creatinine 6.2 H* D Estim Creat Clear Calc 11.2 L eGFR 8 L* BUN/Creatinine Ratio 6 L Glucose 180 H Calculated Osmolality 283 Lactic Acid Calcium 8.9 Corrected Calcium 9.3 Phosphorus 3.4 Magnesium 2.3 Total Bilirubin < 0.2 L ALT 8 L Alkaline Phosphatase 84 Total Protein 6.3 Albumin 3.5 Globulin 2.8 Albumin/Globulin Ratio 1.3 Random Vancomycin 31.9 Coccidioides IgM Ab Hepatitis A IgM Ab Hep Bs Antigen Hep Bs Antibody Hep B Core IgM Ab Hepatitis C Antibody ABG Interpretation ABG results: 12/15/24 12/16/24 16:00 07:52 ABG pH 7.42 ABG pCO2 34 ABG pO2 58 L* ABG HCO3 22 ABG O2 Saturation 91 ABG Base Excess -2 VBG pH 7.50 VBG pCO2 33 L VBG pO2 40 VBG Base Excess 3 Quality Measures Quality Measures VTE prophylaxis and none Assessment & Plan Assessment Current Active Medications: Generic Name Dose Route Start Last Admin Trade Name Yasemin PRN Reason Stop Dose Admin Acetaminophen 650 mg 12/15/24 23:32 12/17/24 22:53 Acetaminophen 325 Mg Tablet PO 01/14/25 23:31 650 mg Q6H PRN Administration Fever >100.4 or pain Dextrose 25 ml 12/15/24 23:32 Dextrose 50%-Water Inj 50 Ml Syringe IV 01/14/25 23:31 Q15MIN PRN BG 50-70 responsive npo pt Dextrose 50 ml 12/15/24 23:32 Dextrose 50%-Water Inj 50 Ml Syringe IV 01/14/25 23:31 Q15MIN PRN BG <50 OR BG <70 & pt unresponsive Docusate Sodium 100 mg 12/15/24 23:32 Docusate Sod 100 Mg Capsule PO 01/14/25 23:31 QDAY PRN CONSTIPATION Protocol Fluconazole 400 mg 12/18/24 09:00 Fluconazole 100 Mg Tablet PO 12/25/24 08:59 BID MICHELLE Glucagon 1 mg 12/15/24 23:32 Glucagon Inj 1 Mg Vial IM Q15MIN PRN BG <70, and no IV access Heparin Sodium (Porcine) 5,000 unit 12/16/24 09:00 12/17/24 20:16 Heparin Sod Inj 5000 Unit/Ml Vial SC 12/30/24 08:59 5,000 unit Q12HR MICHELLE Administration Albumin Human 25 gm in 100 mls @ 100 mls/min 12/16/24 14:42 12/16/24 16:37 Albuminar-25 Ivpb IV 12/19/24 14:41 100 mls/min PRN PRN Administration DIALYSIS Cefepime HCl 1 gm/ Sodium 50 mls @ 100 mls/hr 12/16/24 18:00 12/17/24 17:25 Chloride IV 12/23/24 17:59 100 mls/hr Q24H MICHELLE Administration Sodium Chloride 1,000 mls @ 80 mls/hr 12/17/24 09:00 12/17/24 22:59 Ns IV 01/16/25 08:59 80 mls/hr .[id number] MICHELLE Administration Insulin Glargine 25 unit 12/16/24 21:00 12/17/24 20:15 Insulin Glargine (Lantus) 5 Unit/0.05 Ml (Per 5 Units) SC 01/15/25 20:59 25 unit HS MICHELLE Administration Insulin Human Lispro 0 unit 12/16/24 17:00 12/17/24 20:16 Insulin Lispro (Admelog) 1 Unit/0.01 Ml Unit SC 01/15/25 16:59 5 unit ACHS MICHELLE Administration Protocol Ondansetron HCl 4 mg 12/15/24 23:32 12/17/24 22:53 Ondansetron Inj 2 Mg/Ml Inj 2 Ml IVP 01/14/25 23:31 4 mg Q6H PRN Administration NAUSEA OR VOMITING Protocol Pharmacy Consult 1 each 12/16/24 00:53 Pharmacy Renal Dose Adjustment 1 Ea XX 01/15/25 00:52 PRN PRN CONSULT Pharmacy Consult 1 each 12/17/24 09:00 Vancomycin Pharmacy To Dose 1 Each Each IV 01/16/25 08:59 QDAY PRN PROTOCOL Sennosides 1 tab 12/15/24 23:32 Senna Tablet PO 01/14/25 23:31 QDAY PRN constipation Protocol Plan 54 y/o F with PMHx significant for ESRD (//Wed), CHF, type 2 diabetes, hypothyroidism, dermoid tumor presents with chief complaint nausea, vomiting, fever x 1 day, admitted for infection, UTI versus pneumonia. Intractable nausea/vomiting (improving) Sepsis (improving) Pneumonia, coccidiomycosis versus GNR UTI GNR Patient presented complaint of fever, intractable nausea and vomiting x 1 day. Patient has nonspecific symptoms, denies shortness of breath, cough, dysuria. Patient has elevated Pro-Sebastian 6.14, anion gap acidosis. CT C/A/P showed left lower lobe consolidation concerning for pneumonia versus malignancy. Pulse rate 118 bpm, temperature 100.9 ?F at the time of admission, leukocytosis + urinary tract infection/pneumonia Urine grew GNR. Cocci IgM returned positive, started FLUCONAZOLE. Continue spiking fever and chills. ? Continue ZOFRAN PRN ? Discontinue DOXYCYCLINE (12/16 to 12/17) ? Continue Cefepime 1 g IV daily (12/16 to present) ? Continue VANCOMYCIN (6/8 to present) ? Started FLUCONAZOLE 400 mg BID ? Pending cocci IgG, sputum/blood/urine culture ? Continue IVF @ 80 cc/h, no signs of fluid overload. ESRD on HD TT Mild hyponatremia Patient has history of ESRD, with telegraph office manager Dr. Larry, receives dialysis Wednesday, , Wednesday. Patient presents with high anion gap without metabolic acidosis, bicarb 23.8. Lactic acid 1.8, hydroxybutyrate 0.1, serum osmolality 300. - Uptwist Spinner Dr. Larry consulted, appreciate recommendations - ESRD as per patient's usual schedule, Got HD as of 12/16/2024 - Avoid nephrotoxins - Renally dose medications Type 2 diabetes, patient history Hyperglycemia Patient history of type 2 diabetes. Patient severely hyperglycemic on presentation, serum glucose 652. Beta hydroxybutyrate 0.1. Patient received 10 units insulin x 1 in the ED, mild improvement. Patient also has pseudohyponatremia, sodium 128, corrected sodium 141. A1c is 11.3 ? INSULIN GLARGINE 25 units HS - ISS - Lantus 25 units SC HS - will adjust insulin based on fasting blood sugars Hypothyroidism CHF Patient history as stated. Patient unsure what dosage of her medications she takes, medical reconciliation pending. TSH 1.29 on 12/15/24 - Resume home meds after reconciliation Lactic acidosis (resolved) - Lactate at the time of admission is 3.7, initially improved, but up trended to 3.8, then resolved after fluids. ? 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 Of note patient positive beta-hCG test but no intrauterine , likely secreting from the tumor DVT prophylaxis: Heparin GI prophylaxis: None Diet: Renal diet Lines: Peripheral IV Code status: Full code Case was discussed with attending physician and senior resident. Jairo Dejesus DO PGYI Attending Provider Attestation/Addendum Efrain, Dorys Hernandez DO, attest that I was physically present for the duffy portions of the service and evaluated the patient with the resident and I reviewed and discussed the case with the resident and agree with the resident's findings and plans of care as documented above Patient seen eval this a.m. She continues to have some low-grade fevers. Pending final urine cultures and sensitivities. Patient continues to complain of nausea and vomiting. Will continue with vancomycin and cefepime at this time. Will follow-up with cultures and narrow antibiotics. Started on fluconazole since cocci is positive for IgM. Patient complains of headache. She denies any dizziness or shortness of breath otherwise.
[2024-12-18] MEDS: FLUCONAZOLE 100 MG TABLET 400 MG PO (09:02)
[2024-12-18] MEDS: INSULIN LISPRO (AdmeLOG) 1 UNIT/0.01 ML UNIT SC ×3 (09:03→17:36)
[2024-12-18] MEDS: HEPARIN SOD INJ 5000 UNIT/ML VIAL SC ×2 (09:03→20:21)
[2024-12-18] MEDS: ONDANSETRON INJ 2 MG/ML INJ 2 ML 4 MG IVP (09:16)
[2024-12-18] MEDS: SODIUM CHLORIDE 0.9% 1000 ML 1,000 ML 80 ML IV (12:22)
[2024-12-18] MEDS: METOCLOPRAMIDE INJ 5 MG/ML VIAL 2 ML IVP ×3 (12:22→23:29)
--- NOTE | 2024-12-18 15:20 | PC.SS ---
rounding note: Pending urine cultures. i.v. antibiotics. Patient from home and will return once ready for discharge.
[2024-12-18] MEDS: ACETAMINOPHEN 325 MG TABLET 650 MG PO ×2 (15:58→23:43)
[2024-12-18] MEDS: MEROPENEM IV (16:18)
[2024-12-18] MEDS: SODIUM CHLORIDE 0.9% IV (16:18)
[2024-12-18] MEDS: INSULIN GLARGINE (Lantus) 5 UNIT/0.05 ML (PER 5 UNITS) 25 UNIT SC (20:21)
[2024-12-19] VITALS (26 sets, daily range): BP systolic 76–208; BP diastolic 48–162; PULSE 52–121; RESP 17–27; TEMP 36.2–38.1; O2SAT 95–99
[2024-12-19] MEDS: SODIUM CHLORIDE 0.9% 1000 ML 1,000 ML 80 ML IV (04:35)
[2024-12-19] MEDS: METOCLOPRAMIDE INJ 5 MG/ML VIAL 2 ML IVP ×3 (05:43→17:53)
[2024-12-19 06:09] LABS: Basophils % (Auto) 0 % (0-2.5); Eosinophils # (Auto) 0.2 Thou/mm3 (0.0-0.5); Eosinophils % (Auto) 2 % (0-10); Hematocrit 25.2 % (36.0-46.0); Immature Granulocytes % (Auto) 2 % (0-0); Immature Granulocytes Auto 0.33 Thou/mm3 (0.00-0.00); Lymphocytes # (Auto) 1.3 Thou/mm3 (1.0-4.8); Lymphocytes % (Auto) 10 % (10-50); Mean Corpuscular HGB Conc 33.7 g/dl (31.0-37.0); Mean Corpuscular Hemoglobin 32.3 pg (25.0-35.0); Mean Corpuscular Volume 96 fL (80-100); Monocytes # (Auto) 0.6 Thou/mm3 (0.0-0.8); Monocytes % (Auto) 5 % (0-12); Neutrophils # (Auto) 11.2 Thou/mm3 (1.8-7.7); Neutrophils % (Auto) 82 % (37-80); Nucleated Red Blood Cell % 0 /100 WBC (0); Platelet Count 240 Thou/mm3 (140-440); Red Blood Count 2.63 Miln/mm3 (4.00-5.20); White Blood Count 13.7 Thou/mm3 (3.6-11.0)
[2024-12-19 06:15] LABS: Hemoglobin 8.5 g/dL (12.0-16.0)
[2024-12-19 06:38] LABS: Alanine Aminotransferase 8 U/L (10-49); Albumin, Serum 3.5 gm/dL (3.5-5.0); Albumin/Globulin Ratio 1.2 (1.2-2.2); Alkaline Phosphatase 88 U/L (46-116); Anion Gap 17 (7-16); BUN/Creatinine Ratio 6 Ratio (12-20); Bilirubin,Total 0.2 mg/dL (0.3-1.2); Blood Urea Nitrogen 43 mg/dL (9-23); Calcium 8.9 mg/dL (8.3-10.6); Calcium (Corrected) 9.3 mg/dL (8.5-10.1); Carbon Dioxide 21.4 mMol/L (20.0-31.0); Chloride 96 mMol/L (98-107); Creatinine (Component) 7.3 mg/dL (0.6-1.3); Estimated Creatinine Clearance 9.5 mL/min (>60); Glucose 107 mg/dL (74-106); Magnesium 2.3 mg/dL (1.6-2.6); Osmolality,Calculated 279 (275-295); Phosphorous 3.7 mg/dL (2.4-5.1); Potassium 3.7 mMol/L (3.4-5.1); Sodium 134 mMol/L (136-145); Total Protein 6.5 gm/dL (5.7-8.2); Vancomycin,Random 27.8 mcg/mL; eGFR 6 See Note
[2024-12-19] MEDS: HEPARIN SOD INJ 5000 UNIT/ML VIAL SC ×2 (08:10→20:33)
--- NOTE | 2024-12-19 09:46 | PC.NURSE ---
UF GOAL LOWERED TO 1.5L MUNIR PER PT REQUEST, WILL CONT. TO MONITOR
--- NOTE | 2024-12-19 10:46 | PC.NURSE ---
BP LOW PT DENIES ALL S/S OF HYPOTENSION. WILL ADMIN PRN ALBUMIN PER MD ORDERS AND CONT. TO MONITOR
[2024-12-19] MEDS: ALBUMIN HUMAN 25% IVPB 25 GM/100 ML BTL IV (10:52)
--- NOTE | 2024-12-19 10:55 | PC.NURSE ---
BP CONT. TO TREND DOWN, PT REMAINS AWAKE, AAOX3 AND RECLINED. UF TURNED OFF 50ML NS BOLUS ADMINISTERED, WILL CONT. TO MONITOR
--- NOTE | 2024-12-19 11:00 | PC.NURSE ---
PT CONT'S TO DENY ALL COMPLAINTS, UF TURNED ON WILL CONT. TO MONITOR
[2024-12-19] MEDS: FLUCONAZOLE 100 MG TABLET 400 MG PO (11:34)
--- NOTE | 2024-12-19 12:34 | ESPR_ITS ---
<Statement entered by Jaskaran Banks MD - 12/20/24 02:14> Patient had fever of 100.5 F overnight. She states that she is doing better. Currently on meropenem abx that wa started yesterday. Pending ID reccs. I discussed with and supervised the civil engineering intern physician involved in the care of this patient. Patient assessment and plan was discussed with entire medicine team, including my attending. I agree with the assessment and plan as documented by civil engineering intern doctor. Patient care was discussed with my attending physician Dr. Mary Banks, PGY-2 Documentation for date of: 12/19/24 Subjective Subjective Interval history: Patient is seen and examined at bedside Overnight, patient was found to have febrile episode with temperature of 100.5 Patient is undergoing dialysis session at the time of examination Patient endorsed that she is feeling overall better since the day of admission and denies any other complaints Vitals are stable except for mildly elevated blood pressure Labs showed leukocytosis, 13.7, sodium 134, BUN 43, creatinine 7.3 Dr Elliott was consulted in view of ESBL E. coli UTI Adjusted dose of fluconazole to 200 Mg daily Exam Vital Signs Temp Pulse Resp BP Pulse Ox O2 Del Method O2 Flow Rate 98.2 F 119 H 18 156/84 H 95 Nasal Cannula 2 12/19/24 11:45 12/19/24 11:45 12/19/24 11:45 12/19/24 11:45 12/19/24 11:45 12/19/24 08:00 12/19/24 11:45 Narrative Exam General: Awake. HEENT: Normocephalic, atraumatic, mucous membranes moist. Heart: Regular rate and rhythm, pansystolic murmur heard in all areas. Lungs: Clear to auscultation with no wheezing or crackles. Abdomen: Soft, nondistended, nontender, positive bowel sounds. ?No guarding or rebound tenderness. Neurologic: Alert and oriented x3, no gross neurological deficit, and patient able to move all 4 extremities. Extremities: No edema. Noted fistula in left upper extremity Skin: No rash or ecchymoses. Objective Labs 12/20/24 06:09 12/20/24 06:09 Labs: Laboratory Results - last 24 hr 12/19/24 05:25 WBC 13.7 H RBC 2.63 L Hgb 8.5 L Hct 25.2 L MCV 96 MCH 32.3 MCHC 33.7 RDW Std Deviation 50.0 H Plt Count 240 Neut % (Auto) 82 H Lymph % (Auto) 10 [place] % (Auto) 5 Eos % (Auto) 2 Baso % (Auto) 0 Neut # (Auto) 11.2 H Lymph # (Auto) 1.3 [place] # (Auto) 0.6 Eos # (Auto) 0.2 Baso # (Auto) 0.0 Immature Gran # (Auto) 0.33 H Absolute Nucleated RBC 0.00 Immature Gran % 2 H Nucleated RBC % 0 Sodium 134 L Potassium 3.7 Chloride 96 L Carbon Dioxide 21.4 Anion Gap 17 H BUN 43 H Creatinine 7.3 H* D Estim Creat Clear Calc 9.5 L eGFR 6 L* BUN/Creatinine Ratio 6 L Glucose 107 H D Calculated Osmolality 279 Calcium 8.9 Corrected Calcium 9.3 Phosphorus 3.7 Magnesium 2.3 Total Bilirubin 0.2 L ALT 8 L Alkaline Phosphatase 88 Total Protein 6.5 Albumin 3.5 Globulin 3.0 Albumin/Globulin Ratio 1.2 Random Vancomycin 27.8 ABG Interpretation ABG results: 12/15/24 12/16/24 16:00 07:52 ABG pH 7.42 ABG pCO2 34 ABG pO2 58 L* ABG HCO3 22 ABG O2 Saturation 91 ABG Base Excess -2 VBG pH 7.50 VBG pCO2 33 L VBG pO2 40 VBG Base Excess 3 Quality Measures Quality Measures VTE prophylaxis and none Assessment & Plan Assessment Current Active Medications: Generic Name Dose Route Start Last Admin Trade Name Freq PRN Reason Stop Dose Admin Acetaminophen 650 mg 12/15/24 23:32 12/18/24 23:43 Acetaminophen 325 Mg Tablet PO 01/14/25 23:31 650 mg Q6H PRN Administration Fever >100.4 or pain Dextrose 25 ml 12/15/24 23:32 Dextrose 50%-Water Inj 50 Ml Syringe IV 01/14/25 23:31 Q15MIN PRN BG 50-70 responsive npo pt Dextrose 50 ml 12/15/24 23:32 Dextrose 50%-Water Inj 50 Ml Syringe IV 01/14/25 23:31 Q15MIN PRN BG <50 OR BG <70 & pt unresponsive Docusate Sodium 100 mg 12/15/24 23:32 Docusate Sod 100 Mg Capsule PO 01/14/25 23:31 QDAY PRN CONSTIPATION Protocol Fluconazole 200 mg 12/20/24 09:00 Fluconazole 100 Mg Tablet PO 12/27/24 08:59 QDAY MICHELLE Protocol Glucagon 1 mg 12/15/24 23:32 Glucagon Inj 1 Mg Vial IM Q15MIN PRN BG <70, and no IV access Heparin Sodium (Porcine) 5,000 unit 12/16/24 09:00 12/19/24 08:10 Heparin Sod Inj 5000 Unit/Ml Vial SC 12/30/24 08:59 5,000 unit Q12HR MICHELLE Administration Albumin Human 25 gm in 100 mls @ 100 mls/min 12/16/24 14:42 12/19/24 10:52 Albuminar-25 Ivpb IV 12/19/24 14:41 100 mls/min PRN PRN Administration DIALYSIS Meropenem 500 mg/ Sodium 50 mls @ 50 mls/hr 12/19/24 16:00 Chloride IV 12/25/24 16:14 QDAY@1600 [facility] Protocol Insulin Glargine 25 unit 12/16/24 21:00 12/18/24 20:21 Insulin Glargine (Lantus) 5 Unit/0.05 Ml (Per 5 Units) SC 01/15/25 20:59 25 unit HS MICHELLE Administration Insulin Human Lispro 0 unit 12/16/24 17:00 12/19/24 11:20 Insulin Lispro (Admelog) 1 Unit/0.01 Ml Unit SC 01/15/25 16:59 Not Given ACHS [facility] Protocol Metoclopramide HCl 5 mg 12/18/24 12:00 12/19/24 11:33 Metoclopramide Inj 5 Mg/Ml Vial 2 Ml IVP 01/17/25 11:59 5 mg Q6HR MICHELLE Administration Protocol Ondansetron HCl 4 mg 12/15/24 23:32 12/18/24 09:16 Ondansetron Inj 2 Mg/Ml Inj 2 Ml IVP 01/14/25 23:31 4 mg Q6H PRN Administration NAUSEA OR VOMITING Protocol Sennosides 1 tab 12/15/24 23:32 Senna Tablet PO 01/14/25 23:31 QDAY PRN constipation Protocol Plan 54 y/o F with PMHx significant for ESRD (//Wed), CHF, type 2 diabetes, hypothyroidism, dermoid tumor presents with chief complaint nausea, vomiting, fever x 1 day, admitted for infection, UTI versus pneumonia. Intractable nausea/vomiting, resolved Sepsis, resolved Pneumonia, coccidiomycosis ESBL E.Coli UTI Patient presented complaint of fever, intractable nausea and vomiting x 1 day. Patient has nonspecific symptoms, denies shortness of breath, cough, dysuria. Patient has elevated Pro-Sebastian 6.14, anion gap acidosis. CT C/A/P showed left lower lobe consolidation concerning for pneumonia versus malignancy. Pulse rate 118 bpm, temperature 100.9 ?F at the time of admission, leukocytosis + urinary tract infection/pneumonia Urine grew ESBL E.coli Cocci IgM returned positive, started FLUCONAZOLE. Continued to spiked fever and chills. ? Continue ZOFRAN PRN ? Started on Meropenem 500mg IV qday and consulted Dr. Elliott for in view of ESBL E.coli ? Started on FLUCONAZOLE 200 mg once daily ? Pending cocci IgG ESRD on HD TTS Mild hyponatremia Patient has history of ESRD, with private household worker Dr. Larry, receives dialysis Wednesday, , Wednesday. Patient presents with high anion gap without metabolic acidosis, bicarb 23.8. Lactic acid 1.8, hydroxybutyrate 0.1, serum osmolality 300. - Circulating Nurse Dr. Larry consulted, appreciate recommendations - ESRD as per patient's usual schedule, Got HD as of 12/16/2024, 12/19/2024 - Avoid nephrotoxins - Renally dose medications Type 2 diabetes, patient history Hyperglycemia Patient history of type 2 diabetes. Patient severely hyperglycemic on presentation, serum glucose 652. Beta hydroxybutyrate 0.1. Patient received 10 units insulin x 1 in the ED, mild improvement. Patient also has pseudohyponatremia, sodium 128, corrected sodium 141. A1c is 11.3 ? INSULIN GLARGINE 25 units HS - ISS - Lantus 25 units SC HS - will adjust insulin based on fasting blood sugars Hypothyroidism CHF Patient history as stated. Patient unsure what dosage of her medications she takes, medical reconciliation pending. TSH 1.29 on 12/15/24 - Resume home meds after reconciliation Lactic acidosis (resolved) - Lactate at the time of admission is 3.7, initially improved, but up trended to 3.8, then resolved after fluids. 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 Of note patient positive beta-hCG test but no intrauterine , likely secreting from the tumor DVT prophylaxis: Heparin GI prophylaxis: None Diet: Renal diet Lines: Peripheral IV Code status: Full code Patient plan of care was discussed with the attending physician, Dr. Hernandez and senior resident Dr. Jocelyn Orourke, PGY1 Attending Provider Attestation/Addendum I, Dorys Hernandez, , attest that I was physically present for the duffy portions of the service and evaluated the patient with the resident and I reviewed and discussed the case with the resident and agree with the resident's findings and plans of care as documented above Patient seen and evaluated this AM. No acute events overnight. She continues to have fevers, nausea nad vomiting overnight. She was switched to meropenem yesterday since cultures are positive for ESBL E.coli. Will consult ID for further recommendations as well. HD was not completed to goal due to hypotension as per dialysis nurse. Patient had 1.3L of fluid rather than 1.5L removed
--- NOTE | 2024-12-19 15:01 | PC.SS ---
Rounding: Pending Earl reccs, DC 1-2 days if no fevers
[2024-12-19] MEDS: MEROPENEM INJ 500 MG in SODIUM CHLORIDE 0.9% (Popper) 50 ML 50 MG IV (15:24)
[2024-12-19] MEDS: INSULIN GLARGINE (Lantus) 5 UNIT/0.05 ML (PER 5 UNITS) 25 UNIT SC (20:33)
[2024-12-20] VITALS (8 sets, daily range): BP systolic 153–169; BP diastolic 83–92; PULSE 87–108; RESP 16–21; TEMP 36.5–37.3; O2SAT 94–99
[2024-12-20] MEDS: METOCLOPRAMIDE INJ 5 MG/ML VIAL 2 ML IVP ×5 (00:04→23:31)
[2024-12-20 06:31] LABS: Basophils % (Auto) 0 % (0-2.5); Eosinophils # (Auto) 0.1 Thou/mm3 (0.0-0.5); Eosinophils % (Auto) 1 % (0-10); Hematocrit 22.9 % (36.0-46.0); Immature Granulocytes % (Auto) 2 % (0-0); Immature Granulocytes Auto 0.19 Thou/mm3 (0.00-0.00); Lymphocytes # (Auto) 1.1 Thou/mm3 (1.0-4.8); Lymphocytes % (Auto) 10 % (10-50); Mean Corpuscular HGB Conc 32.3 g/dl (31.0-37.0); Mean Corpuscular Hemoglobin 32.9 pg (25.0-35.0); Mean Corpuscular Volume 102 fL (80-100); Monocytes # (Auto) 0.7 Thou/mm3 (0.0-0.8); Monocytes % (Auto) 6 % (0-12); Neutrophils # (Auto) 8.6 Thou/mm3 (1.8-7.7); Neutrophils % (Auto) 80 % (37-80); Nucleated Red Blood Cell % 0 /100 WBC (0); Platelet Count 183 Thou/mm3 (140-440); RDW Standard Deviation 53.2 fL (36.4-46.3); Red Blood Count 2.25 Miln/mm3 (4.00-5.20); White Blood Count 10.7 Thou/mm3 (3.6-11.0)
[2024-12-20 06:42] LABS: Hemoglobin 7.4 g/dL (12.0-16.0)
[2024-12-20 06:49] LABS: Anion Gap 12 (7-16); BUN/Creatinine Ratio 4 Ratio (12-20); Blood Urea Nitrogen 22 mg/dL (9-23); Calcium 8.6 mg/dL (8.3-10.6); Chloride 99 mMol/L (98-107); Creatinine (Component) 5.2 mg/dL (0.6-1.3); Estimated Creatinine Clearance 13.3 mL/min (>60); Glucose 64 mg/dL (74-106); Osmolality,Calculated 273 (275-295); Potassium 3.5 mMol/L (3.4-5.1); Sodium 136 mMol/L (136-145); eGFR 9 See Note
[2024-12-20] MEDS: LEVOTHYROXINE SODIUM 25 MCG TABLET 37.5 MCG PO (07:58)
[2024-12-20] MEDS: FLUCONAZOLE 100 MG TABLET 200 MG PO (08:30)
[2024-12-20] MEDS: VIT B12/Vit C/FA (Nephrovite) TABLET 1 TAB PO (08:30)
[2024-12-20] MEDS: SEVELAMER CARBONATE 800 MG TABLET PO ×3 (08:30→17:15)
[2024-12-20] MEDS: allopurinoL 100 MG TABLET 300 MG PO (08:30)
[2024-12-20] MEDS: amLODIPine BESYLATE 5 MG TABLET PO (08:31)
[2024-12-20] MEDS: HEPARIN SOD INJ 5000 UNIT/ML VIAL SC ×2 (08:32→21:00)
--- NOTE | 2024-12-20 10:41 | XR_ITS ---
Examination: AP chest single view Technique one AP portable upright chest single view Date and time: December 20, 2024 1105 hours Comparison December 15, 2024 INDICATIONS: Tachypnea today. FINDINGS: Significant bilateral pneumonia Normal heart size The osseous structures are intact IMPRESSION: Significant bilateral pneumonia
[2024-12-20] MEDS: INSULIN LISPRO (AdmeLOG) 1 UNIT/0.01 ML UNIT SC ×3 (12:18→21:01)
--- NOTE | 2024-12-20 13:33 | ESPR_ITS ---
<Statement entered by Jaskaran Banks MD - 12/20/24 22:28> Patient underwent incomplete hemodialysis yesterday with a total of 1.9 L fluid outtake. Hemoglobin down trended from 8.5-7.4. ID Dr Elliott recommended 4 days of Macrobid for the ESBL UTI. Anticipating to discharge patient tomorrow if she continues to be stable. I discussed with and supervised the bakery pastry internship physician involved in the care of this patient. Patient assessment and plan was discussed with entire medicine team, including my attending. I agree with the assessment and plan as documented by bakery pastry internship doctor. Patient care was discussed with my attending physician Dr. Mary Banks, PGY-2 Documentation for date of: 12/20/24 Subjective Subjective Interval history: Patient is seen and examined at bedside No acute overnight events. Denies any other complaints Vitals are stable except for mild tachycardia and patient is saturating 95 to 96% on 3 L oxygen On physical examination, bilateral breath sounds heard without any wheeze or crackles Labs showed hemoglobin 7.4, glucose 64 Insulin glargine 25 units is decreased to 20 units. Resumed all her home medications Pending Dr. Elliott recommendations in view of ESBL E. coli UTI. Will continue fluconazole 200 Mg for cocci pneumonia Order chest x-ray as patient found to have tachypnea and it showed infiltrates in the right and left lower air areas, likely fluid overload. Planning to talk to in mold coater about removing fluid during dialysis Exam Vital Signs Temp Pulse Resp BP Pulse Ox O2 Del Method O2 Flow Rate 98.9 F 95 16 160/87 H 98 Nasal Cannula 3 12/20/24 11:58 12/20/24 12:00 12/20/24 11:58 12/20/24 11:58 12/20/24 11:58 12/20/24 11:58 12/20/24 11:58 Narrative Exam General: Awake. HEENT: Normocephalic, atraumatic, mucous membranes moist. Heart: Regular rate and rhythm, pansystolic murmur heard in all areas. Lungs: Clear to auscultation with no wheezing or crackles. Abdomen: Soft, nondistended, nontender, positive bowel sounds. ?No guarding or rebound tenderness. Neurologic: Alert and oriented x3, no gross neurological deficit, and patient able to move all 4 extremities. Extremities: No edema. Noted fistula in left upper extremity Skin: No rash or ecchymoses. Objective Labs 12/21/24 12:10 12/21/24 12:10 Labs: Laboratory Results - last 24 hr 12/20/24 06:09 WBC 10.7 RBC 2.25 L Hgb 7.4 L Hct 22.9 L MCV 102 H MCH 32.9 MCHC 32.3 RDW Std Deviation 53.2 H Plt Count 183 D Neut % (Auto) 80 Lymph % (Auto) 10 [place] % (Auto) 6 Eos % (Auto) 1 Baso % (Auto) 0 Neut # (Auto) 8.6 H Lymph # (Auto) 1.1 [place] # (Auto) 0.7 Eos # (Auto) 0.1 Baso # (Auto) 0.0 Immature Gran # (Auto) 0.19 H Absolute Nucleated RBC 0.00 Immature Gran % 2 H Nucleated RBC % 0 Sodium 136 Potassium 3.5 Chloride 99 Carbon Dioxide 25.0 Anion Gap 12 BUN 22 Creatinine 5.2 H* D Estim Creat Clear Calc 13.3 L eGFR 9 L* BUN/Creatinine Ratio 4 L Glucose 64 L Calculated Osmolality 273 L Calcium 8.6 ABG Interpretation ABG results: 12/15/24 12/16/24 16:00 07:52 ABG pH 7.42 ABG pCO2 34 ABG pO2 58 L* ABG HCO3 22 ABG O2 Saturation 91 ABG Base Excess -2 VBG pH 7.50 VBG pCO2 33 L VBG pO2 40 VBG Base Excess 3 Quality Measures Quality Measures VTE prophylaxis and none Assessment & Plan Assessment Current Active Medications: Generic Name Dose Route Start Last Admin Trade Name Yasemin PRN Reason Stop Dose Admin Acetaminophen 650 mg 12/15/24 23:32 12/18/24 23:43 Acetaminophen 325 Mg Tablet PO 01/14/25 23:31 650 mg Q6H PRN Administration Fever >100.4 or pain Allopurinol 300 mg 12/20/24 09:00 12/20/24 08:30 Allopurinol 100 Mg Tablet PO 01/19/25 08:59 300 mg QDAY MICHELLE Administration Amlodipine Besylate 5 mg 12/20/24 09:00 12/20/24 08:31 Amlodipine Besylate 5 Mg Tablet PO 01/19/25 08:59 5 mg QDAY MICHELLE Administration Atorvastatin Calcium 80 mg 12/20/24 21:00 Atorvastatin Calcium 20 Mg Tablet PO 01/19/25 20:59 HS MICHELLE Dextrose 25 ml 12/15/24 23:32 Dextrose 50%-Water Inj 50 Ml Syringe IV 01/14/25 23:31 Q15MIN PRN BG 50-70 responsive npo pt Dextrose 50 ml 12/15/24 23:32 Dextrose 50%-Water Inj 50 Ml Syringe IV 01/14/25 23:31 Q15MIN PRN BG <50 OR BG <70 & pt unresponsive Docusate Sodium 100 mg 12/15/24 23:32 Docusate Sod 100 Mg Capsule PO 01/14/25 23:31 QDAY PRN CONSTIPATION Protocol Fluconazole 200 mg 12/20/24 09:00 12/20/24 08:30 Fluconazole 100 Mg Tablet PO 12/27/24 08:59 200 mg QDAY MICHELLE Administration Protocol Glucagon 1 mg 12/15/24 23:32 Glucagon Inj 1 Mg Vial IM Q15MIN PRN BG <70, and no IV access Heparin Sodium (Porcine) 5,000 unit 12/16/24 09:00 12/20/24 08:32 Heparin Sod Inj 5000 Unit/Ml Vial SC 12/30/24 08:59 5,000 unit Q12HR MICHELLE Administration Meropenem 500 mg/ Sodium 50 mls @ 50 mls/hr 12/19/24 16:00 12/19/24 15:24 Chloride IV 12/25/24 16:14 50 mls/hr QDAY@1600 MICHELLE Administration Protocol Insulin Glargine 20 unit 12/20/24 21:00 Insulin Glargine (Lantus) 5 Unit/0.05 Ml (Per 5 Units) MT 01/19/25 20:59 HS [facility] Insulin Human Lispro 0 unit 12/16/24 17:00 12/20/24 12:18 Insulin Lispro (Admelog) 1 Unit/0.01 Ml Unit SC 01/15/25 16:59 3 unit ACHS [facility] Administration Protocol Levothyroxine Sodium 37.5 mcg 12/20/24 07:45 12/20/24 07:58 Levothyroxine Sodium 25 Mcg Tablet PO 01/19/25 07:44 37.5 mcg ACBR MICHELLE Administration Metoclopramide HCl 5 mg 12/18/24 12:00 12/20/24 11:51 Metoclopramide Inj 5 Mg/Ml Vial 2 Ml IVP 01/17/25 11:59 5 mg Q6HR MICHELLE Administration Protocol Midodrine 10 mg 12/20/24 07:35 Midodrine 5 Mg Tablet PO 01/19/25 13:59 TID PRN BP < 100/60 Ondansetron HCl 4 mg 12/15/24 23:32 12/18/24 09:16 Ondansetron Inj 2 Mg/Ml Inj 2 Ml IVP 01/14/25 23:31 4 mg Q6H PRN Administration NAUSEA OR VOMITING Protocol Sennosides 1 tab 12/15/24 23:32 Senna Tablet PO 01/14/25 23:31 QDAY PRN constipation Protocol Sevelamer Carbonate 800 mg 12/20/24 08:00 12/20/24 11:51 Sevelamer Carbonate 800 Mg Tablet PO 01/19/25 07:59 800 mg TIDWM MICHELLE Administration Vitamin B Complex/Vit C/Folic Acid 1 tab 12/20/24 09:00 12/20/24 08:30 Vit B12/Vit C/Fa (Nephrovite) Tablet PO 01/19/25 08:59 1 tab QDAY MICHELLE Administration Plan 54 y/o F with PMHx significant for ESRD (//Wed), CHF, type 2 diabetes, hypothyroidism, dermoid tumor presents with chief complaint nausea, vomiting, fever x 1 day, admitted for infection, UTI versus pneumonia. Intractable nausea/vomiting, resolved Sepsis, resolved Pneumonia, coccidiomycosis ESBL E.Coli UTI Patient presented complaint of fever, intractable nausea and vomiting x 1 day. Patient has nonspecific symptoms, denies shortness of breath, cough, dysuria. Patient has elevated Pro-Sebastian 6.14, anion gap acidosis. CT C/A/P showed left lower lobe consolidation concerning for pneumonia versus malignancy. Pulse rate 118 bpm, temperature 100.9 ?F at the time of admission, leukocytosis + urinary tract infection/pneumonia Urine grew ESBL E.coli Cocci IgM returned positive, started FLUCONAZOLE. Continued to spiked fever and chills. ? Continue ZOFRAN PRN ? Started on Meropenem 500mg IV qday and consulted Dr. Elilott for in view of ESBL E.coli ? Started on FLUCONAZOLE 200 mg once daily ? Pending cocci IgG ESRD on HD TTS Patient has history of ESRD, with in mold coater Dr. Larry, receives dialysis Wednesday, , Wednesday. Patient presents with high anion gap without metabolic acidosis, bicarb 23.8. Lactic acid 1.8, hydroxybutyrate 0.1, serum osmolality 300. - Mixing House Operator Dr. Larry consulted, appreciate recommendations - ESRD as per patient's usual schedule, Got HD as of 12/16/2024, 12/19/2024 - Avoid nephrotoxins - Renally dose medications Type 2 diabetes, patient history Hyperglycemia Patient history of type 2 diabetes. Patient severely hyperglycemic on presentation, serum glucose 652. Beta hydroxybutyrate 0.1. Patient received 10 units insulin x 1 in the ED, mild improvement. Patient also has pseudohyponatremia, sodium 128, corrected sodium 141. A1c is 11.3 ? INSULIN GLARGINE 20 units HS - ISS Hypothyroidism CHF Patient history as stated. Patient unsure what dosage of her medications she takes, medical reconciliation pending. TSH 1.29 on 12/15/24 - Resumed her home meds Lactic acidosis (resolved) - Lactate at the time of admission is 3.7, initially improved, but uptrended to 3.8, then resolved after fluids. 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 Of note patient positive beta-hCG test but no intrauterine , likely secreting from the tumor DVT prophylaxis: Heparin GI prophylaxis: None Diet: Renal diet Lines: Peripheral IV Code status: Full code Patient plan of care was discussed with the attending physician, Dr. Hernandez and senior resident Dr. Jocelyn Orourke, PGY1 Attending Provider Attestation/Addendum Efrain, Dorys Hernandez, DO, attest that I was physically present for the duffy portions of the service and evaluated the patient with the resident and I reviewed and discussed the case with the resident and agree with the resident's findings and plans of care as documented above Patient seen and evaluated this a.m. Patient endorsed having dyspnea on exertion upon going to the bathroom. Suspect that patient may be fluid overloaded secondary to IV fluids that she had received in the past few days. She has otherwise been afebrile. Will follow-up with ID recommendations regarding ESBL E. coli UTI. Spoke with dialysis nurse, anticipate HD in AM. Patient remains on 3 L nasal cannula. Patient states that she feels improved at rest. She continues to saturate in the 90s. No respiratory distress noted.
--- NOTE | 2024-12-20 15:04 | PC.SS ---
rounding note: Pending ID rec's. Poss d/c home
--- NOTE | 2024-12-20 15:56 | ESPR_ITS ---
Subjective Subjective Interval history: cocci pos. cxr with bilat changes . may be chf as she is on home O2 as well. she is also diabetic and on hd for 2 yrs with a l arm avf noted. Exam Vital Signs Temp Pulse Resp BP Pulse Ox O2 Del Method O2 Flow Rate 98.9 F 95 16 160/87 H 98 Nasal Cannula 3 12/20/24 11:58 12/20/24 12:00 12/20/24 11:58 12/20/24 11:58 12/20/24 11:58 12/20/24 11:58 12/20/24 11:58 Narrative Exam no distress on 3 lpm here. (is on 2lpm at home) circulation grossly ok. allergies noted. no urinary sx noted. Objective - Internal Medicine Labs 12/20/24 06:09 12/20/24 06:09 Labs: Laboratory Results - last 24 hr 12/20/24 06:09 WBC 10.7 RBC 2.25 L Hgb 7.4 L Hct 22.9 L MCV 102 H MCH 32.9 MCHC 32.3 RDW Std Deviation 53.2 H Plt Count 183 D Neut % (Auto) 80 Lymph % (Auto) 10 [place] % (Auto) 6 Eos % (Auto) 1 Baso % (Auto) 0 Neut # (Auto) 8.6 H Lymph # (Auto) 1.1 [place] # (Auto) 0.7 Eos # (Auto) 0.1 Baso # (Auto) 0.0 Immature Gran # (Auto) 0.19 H Absolute Nucleated RBC 0.00 Immature Gran % 2 H Nucleated RBC % 0 Sodium 136 Potassium 3.5 Chloride 99 Carbon Dioxide 25.0 Anion Gap 12 BUN 22 Creatinine 5.2 H* D Estim Creat Clear Calc 13.3 L eGFR 9 L* BUN/Creatinine Ratio 4 L Glucose 64 L Calculated Osmolality 273 L Calcium 8.6 ABG Interpretation ABG results: 12/15/24 12/16/24 16:00 07:52 ABG pH 7.42 ABG pCO2 34 ABG pO2 58 L* ABG HCO3 22 ABG O2 Saturation 91 ABG Base Excess -2 VBG pH 7.50 VBG pCO2 33 L VBG pO2 40 VBG Base Excess 3 Assessment & Plan A&P Narrative possible cocci fluid overload vs cocci on cxr. is on O2 at home too. dm II hypothyroid multiple allergies cystitis 3d macrobid ok for cystitis. will give that, but if weans down to home O2 then no objection to home. if still here wednesday, will see again at that time, but if neg at [facility], then ok to stop flucon, if neg may have fluid overload , but that can be difficult to evaluate on hd. procal not recommended on hd as it is insensitive to fungal antigens and is renally cleared so is often high in hd pts. Time Spent With Patient Time: Total time spent is greater than 50% in coordination of care (as documented) at patient's floor/unit and/or counseling patient:
[2024-12-20] MEDS: MEROPENEM INJ 500 MG in SODIUM CHLORIDE 0.9% (Popper) 50 ML 50 MG IV (15:59)
--- NOTE | 2024-12-20 16:03 | ESCONSULT_ITS ---
<Statement entered by Armin Elliott MD - 12/22/24 09:21> pt seen with resident. all findings confirmed HPI Data of Consult Requesting Physician: Dorys Hernandez DO Admitting Provider: Dandre Dickinson MD Attending Provider: Dorys Hernandez DO Primary Care Provider: Sarah Anderson NP Consult Narrative History of present illness: 54 y/o F with PMHx significant for ESRD (T//Wed), CHF, type 2 diabetes, hypothyroidism, dermoid tumor presents with chief complaint nausea, vomiting, fever for about a week. Patient found to have ESBL E. coli and cocci positive IgM and therefore ID was consulted. Patient reports allergies to penicillins and sulfa drugs which causes swelling of the tongue and rash, currently patient is on renally dosed meropenem and fluconazole. Patient also stated that she had coughing for about a week and a half with some phlegm at the beginning but now has cough without phlegm. Patient usually on 2 L of oxygen at home. Patient currently on 3 L, has no active complaint at this time. cc:: cc: Dorys Hernandez DO Exam Vital Signs Temp Pulse Resp BP Pulse Ox O2 Del Method O2 Flow Rate 98.9 F 95 16 160/87 H 98 Nasal Cannula 3 12/20/24 11:58 12/20/24 12:00 12/20/24 11:58 12/20/24 11:58 12/20/24 11:58 12/20/24 11:58 12/20/24 11:58 Narrative Exam General: Pleasant middle-aged female. AO x 3. Awake. Heart: Tachycardic, questionable systolic murmur on auscultation. Lungs: Clear to auscultation with no wheezing or crackles. Abdomen: Soft, nondistended, nontender, positive bowel sounds. ?No guarding or rebound tenderness. Extremities: No edema. Noted fistula in left upper extremity Skin: No rash or ecchymoses. Results Labs 12/20/24 06:09 12/20/24 06:09 Labs: Short CBC 12/20/24 Range/Units 06:09 WBC 10.7 (3.6-11.0) Thou/mm3 Hgb 7.4 L (12.0-16.0) g/dL Hct 22.9 L (36.0-46.0) % Plt Count 183 D (140-440) Thou/mm3 BMP 12/20/24 06:09 Sodium 136 Potassium 3.5 Chloride 99 Carbon Dioxide 25.0 BUN 22 Creatinine 5.2 H* D Glucose 64 L Calcium 8.6 ABG Interpretation ABG results: 12/15/24 12/16/24 16:00 07:52 ABG pH 7.42 ABG pCO2 34 ABG pO2 58 L* ABG HCO3 22 ABG O2 Saturation 91 ABG Base Excess -2 VBG pH 7.50 VBG pCO2 33 L VBG pO2 40 VBG Base Excess 3 Quality Measures Quality Measures VTE prophylaxis and none Medications Home Medications and Allergies Home Medications ?Medication ?Instructions ?Recorded ?Confirmed ?Type insulin glargine 100 unit/mL (3 25 unit subcut QAM 01/2812/19/24 History mL) subcutaneous pen (Basaglar KwikPen U-100 Insulin) insulin regular human 100 unit/mL 1 unit subcut PRN PA N Hyperglycemia 04/17/20 12/19/24 History injection solution (Humulin R Regular U-100 Insulin) levothyroxine 25 mcg tablet 37.5 mcg PO DAILY 04/17/20 12/19/24 History ergocalciferol (vitamin D2) 1,250 1,250 mcg PO 2 X WEE KLY 08/25/23 12/19/24 History mcg (50,000 unit) capsule (Vitamin D2) midodrine 10 mg tablet 10 mg PO TID 08/25/23 History sevelamer HCl 800 mg tablet 800 mg PO TID 08/25/2305/05 History (Renagel) allopurinol 300 mg tablet 300 mg PO QDAY 03/16/2412/10 History diltiazem HCl 240 mg 240 mg PO QDAY 03/16/2412/10 History capsule,extended release 24 hr Held on 12/19/24. Instructions: Doctor's Order vitamin B complex-vitamin C-folic 1 tab PO QDAY 12/19/24 History acid 0.8 mg tablet (Татьяна-Toby) atorvastatin 80 mg tablet 80 mg PO .pm 12/19/24 History furosemide 40 mg tablet 20 mg PO QWEEK 12/19/2412/10 History ondansetron 4 mg disintegrating 4 mg PO TID 12/19/24 0 12/19/24 History tablet Allergies Allergy/AdvReac Type Severity Reaction Status Date / Time codeine Allergy Severe Swelling Verified 08/15/24 15:08 hydrocodone Allergy Severe Swelling Verified 08/15/24 15:08 Penicillins Allergy Severe Difficulty Verified 08/15/24 15:08 Breathing sulfamethoxazole (From Allergy Severe Swelling Verified 08/15/24 15:08 Bactrim) of Lip/Tongue/Throat trimethoprim (From Bactrim) Allergy Severe Swelling Verified 08/15/24 15:08 of Lip/Tongue/Throat Visit Medications Acetaminophen (Acetaminophen 325 Mg Tablet) 650 mg PO Q6H PRN PRN Reason: Fever >100.4 or pain Stop: 01/14/25 23:31 Last Admin: 12/18/24 23:43 Dose: 650 mg Allopurinol (Allopurinol 100 Mg Tablet) 300 mg PO QDAY MICHELLE Stop: 01/19/25 08:59 Last Admin: 12/20/24 08:30 Dose: 300 mg Amlodipine Besylate (Amlodipine Besylate 5 Mg Tablet) 10 mg PO QDAY MICHELLE Stop: 01/20/25 08:59 Atorvastatin Calcium (Atorvastatin Calcium 20 Mg Tablet) 80 mg PO HS MICHELLE Stop: 01/19/25 20:59 Dextrose (Dextrose 50%-Water Inj 50 Ml Syringe) 25 ml IV Q15MIN PRN PRN Reason: BG 50-70 responsive npo pt Stop: 01/14/25 23:31 Dextrose (Dextrose 50%-Water Inj 50 Ml Syringe) 50 ml IV Q15MIN PRN PRN Reason: BG <50 OR BG <70 & pt unresponsive Stop: 01/14/25 23:31 Docusate Sodium (Docusate Sod 100 Mg Capsule) 100 mg PO QDAY PRN; Protocol PRN Reason: CONSTIPATION Stop: 01/14/25 23:31 Fluconazole (Fluconazole 100 Mg Tablet) 200 mg PO QDAY MICHELLE; Protocol Stop: 12/27/24 08:59 Last Admin: 12/20/24 08:30 Dose: 200 mg Glucagon (Glucagon Inj 1 Mg Vial) 1 mg IM Q15MIN PRN PRN Reason: BG <70, and no IV access Heparin Sodium (Porcine) (Heparin Sod Inj 5000 Unit/Ml Vial) 5,000 unit SC Q12HR MICHELLE Stop: 12/30/24 08:59 Last Admin: 12/20/24 08:32 Dose: 5,000 unit Meropenem 500 mg/ Sodium (Chloride) 50 mls @ 50 mls/hr IV QDAY@1600 [facility]; Protocol Stop: 12/25/24 16:14 Last Admin: 12/20/24 15:59 Dose: 50 mls/hr Insulin Glargine (Insulin Glargine (Lantus) 5 Unit/0.05 Ml (Per 5 Units)) 20 unit SC HS [facility] Stop: 01/19/25 20:59 Insulin Human Lispro (Insulin Lispro (Admelog) 1 Unit/0.01 Ml Unit) 0 unit SC ACHS [facility]; Protocol Stop: 01/15/25 16:59 Last Admin: 12/20/24 12:18 Dose: 3 unit Levothyroxine Sodium (Levothyroxine Sodium 25 Mcg Tablet) 37.5 mcg PO ACBR [facility] Stop: 01/19/25 07:44 Last Admin: 12/20/24 07:58 Dose: 37.5 mcg Metoclopramide HCl (Metoclopramide Inj 5 Mg/Ml Vial 2 Ml) 5 mg IVP Q6HR [facility]; Protocol Stop: 01/17/25 11:59 Last Admin: 12/20/24 11:51 Dose: 5 mg Midodrine (Midodrine 5 Mg Tablet) 10 mg PO TID PRN PRN Reason: BP < 100/60 Stop: 01/19/25 13:59 Nitrofurantoin Macrocrystals (Nitrofurantoin Macro 100 Mg Capsule) 100 mg PO BID [facility] Stop: 12/23/24 12:00 Ondansetron HCl (Ondansetron Inj 2 Mg/Ml Inj 2 Ml) 4 mg IVP Q6H PRN; Protocol PRN Reason: NAUSEA OR VOMITING Stop: 01/14/25 23:31 Last Admin: 12/18/24 09:16 Dose: 4 mg Sennosides (Senna Tablet) 1 tab PO QDAY PRN; Protocol PRN Reason: constipation Stop: 01/14/25 23:31 Sevelamer Carbonate (Sevelamer Carbonate 800 Mg Tablet) 800 mg PO TIDWM [facility] Stop: 01/19/25 07:59 Last Admin: 12/20/24 11:51 Dose: 800 mg Vitamin B Complex/Vit C/Folic Acid (Vit B12/Vit C/Fa (Nephrovite) Tablet) 1 tab PO QDAY MICHELLE Stop: 01/19/25 08:59 Last Admin: 12/20/24 08:30 Dose: 1 tab Discontinued Medications Acetaminophen (Acetaminophen 500 Mg Tablet) 1,000 mg PO X1 ONE Stop: 12/15/24 14:26 Last Admin: 12/15/24 14:44 Dose: 1,000 mg Acetaminophen (Acetaminophen 325 Mg Tablet) 325 mg PO X1 ONE Stop: 12/16/24 12:01 Last Admin: 12/16/24 12:06 Dose: 325 mg Amlodipine Besylate (Amlodipine Besylate 5 Mg Tablet) 5 mg PO QDAY [facility] Stop: 01/19/25 08:59 Last Admin: 12/20/24 08:31 Dose: 5 mg Doxycycline Hyclate (Doxycycline 100 Mg Tablet) 100 mg PO BID [facility] Stop: 12/23/24 10:59 Doxycycline Hyclate (Doxycycline 100 Mg Tablet) 100 mg PO BID MICHELLE Stop: 12/23/24 10:59 Last Admin: 12/17/24 08:49 Dose: 100 mg Fluconazole (Fluconazole 100 Mg Tablet) 400 mg PO BID [facility] Stop: 12/25/24 08:59 Last Admin: 12/18/24 09:02 Dose: 400 mg Fluconazole (Fluconazole 100 Mg Tablet) 400 mg PO QDAY [facility]; Protocol Stop: 12/26/24 08:59 Last Admin: 12/19/24 11:34 Dose: 400 mg Vancomycin HCl 1,000 mg/ (Sodium Chloride) 250 mls @ 150 mls/hr IV X1 ONE Stop: 12/15/24 17:14 Last Admin: 12/15/24 17:40 Dose: Not Given Meropenem 1,000 mg/ Sodium (Chloride) 50 mls @ 100 mls/hr IV X1 ONE Stop: 12/15/24 15:37 Last Infusion: 12/15/24 17:40 Dose: Infused Vancomycin/Sodium Chloride (Vancomycin/Ns 1 Gm Ivpb) 200 mls @ 120 mls/hr IV X1 ONE Stop: 12/15/24 17:24 Last Infusion: 12/15/24 19:20 Dose: Infused Acetaminophen (Ofirmev Inj) 1,000 mg in 100 mls @ 250 mls/hr IV X1 ONE Stop: 12/15/24 20:01 Last Admin: 12/15/24 22:48 Dose: Not Given Lactated Ringer's (Lactated Ringers) 500 mls @ 999 mls/hr IV .Q31M ONE Stop: 12/16/24 00:09 Last Infusion: 12/16/24 00:30 Dose: Infused Lactated Ringer's (Lactated Ringers) 1,000 mls @ 80 mls/hr IV .[id number] ONE Stop: 12/16/24 12:08 Last Admin: 12/16/24 00:44 Dose: 80 mls/hr Ceftriaxone Sodium/Dextrose (Rocephin/D5w 1gm Iv Premix) 1 gm in 50 mls @ 100 mls/hr IV QDAY@2100 MICHELLE Stop: 12/22/24 23:44 Last Infusion: 12/16/24 00:24 Dose: Infused Albumin Human (Albuminar-25 Ivpb) 25 gm in 100 mls @ 100 mls/min IV PRN PRN PRN Reason: DIALYSIS Stop: 12/19/24 14:41 Last Admin: 12/19/24 10:52 Dose: 100 mls/min Piperacillin/Tazobactam/Dextrose (Zosyn) 50 mls @ 100 mls/hr IV Q6HR MICHELLE Stop: 12/23/24 17:29 Cefepime HCl 1 gm/ Sodium (Chloride) 50 mls @ 100 mls/hr IV Q24H MICHELLE Stop: 12/23/24 17:59 Last Admin: 12/17/24 17:25 Dose: 100 mls/hr Sodium Chloride (Ns) 1,000 mls @ 80 mls/hr IV .[id number] MICHELLE Stop: 01/16/25 08:59 Last Admin: 12/19/24 04:35 Dose: 80 mls/hr Sodium Chloride (Ns) 500 mls @ 999 mls/hr IV .Q31M ONE Stop: 12/17/24 09:24 Last Admin: 12/17/24 09:43 Dose: 999 mls/hr Vancomycin HCl (Vancomycin/Water 1250 Mg Ivpb) 250 mls @ 120 mls/hr IV X1 ONE Stop: 12/17/24 12:04 Last Admin: 12/17/24 10:10 Dose: 120 mls/hr Potassium Chloride (Kcl Ivpb) 10 meq in 100 mls @ 100 mls/hr IV Q1H MICHELLE Stop: 12/17/24 15:44 Last Admin: 12/17/24 17:25 Dose: 100 mls/hr Magnesium Sulfate (Magnesium Sulfate Ivpb) 2 gm in 50 mls @ 25 mls/hr IV X1 ONE Stop: 12/17/24 13:37 Last Admin: 12/17/24 12:38 Dose: 25 mls/hr Meropenem 500 mg/ Sodium (Chloride) 100 mls @ 100 mls/hr IV QDAY [facility]; Protocol Stop: 12/25/24 15:59 Last Admin: 12/18/24 18:41 Dose: Not Given Meropenem 500 mg/ Sodium (Chloride) 100 mls @ 100 mls/hr IV QDAY [facility]; Protocol Stop: 12/25/24 16:14 Last Admin: 12/18/24 16:18 Dose: 100 mls/hr Insulin Glargine (Insulin Glargine (Lantus) 5 Unit/0.05 Ml (Per 5 Units)) 25 unit SC QDAY [facility] Stop: 01/15/25 08:59 Last Admin: 12/16/24 08:41 Dose: 25 unit Insulin Glargine (Insulin Glargine (Lantus) 5 Unit/0.05 Ml (Per 5 Units)) 25 unit SC HS [facility] Stop: 01/15/25 20:59 Last Admin: 12/19/24 20:33 Dose: 25 unit Insulin Human Lispro (Insulin Lispro (Admelog) 1 Unit/0.01 Ml Unit) 0 unit SC Q6HR [facility]; Protocol Stop: 01/15/25 00:00 Last Admin: 12/16/24 12:06 Dose: 4 unit Insulin Human Lispro (Insulin Lispro (Admelog) 1 Unit/0.01 Ml Unit) 10 unit SC X1 ONE Stop: 12/16/24 07:53 Last Admin: 12/16/24 08:38 Dose: 10 unit Insulin Human Regular (Insulin Hum Regular 1 Unit/0.01 Ml (Per Unit)) 10 unit IV X1 ONE Stop: 12/15/24 19:40 Last Admin: 12/15/24 22:37 Dose: 10 unit Insulin Human Regular (Insulin Hum Regular 1 Unit/0.01 Ml (Per Unit)) 10 unit IV X1 ONE Stop: 12/16/24 00:20 Last Admin: 12/16/24 00:31 Dose: 10 unit Ketorolac Tromethamine (Ketorolac Inj 30 Mg/Ml Vial) 30 mg IVP X1 ONE Stop: 12/15/24 19:39 Last Admin: 12/15/24 22:16 Dose: Not Given Metoclopramide HCl (Metoclopramide Inj 5 Mg/Ml Vial 2 Ml) 10 mg IVP X1 ONE; Protocol Stop: 12/16/24 03:45 Last Admin: 12/16/24 03:53 Dose: 10 mg Metoclopramide HCl (Metoclopramide Inj 5 Mg/Ml Vial 2 Ml) 10 mg IVP X1 ONE; Protocol Stop: 12/16/24 17:26 Last Admin: 12/16/24 17:40 Dose: 10 mg Morphine Sulfate (Morphine Sulf Inj 10 Mg/Ml Vial) 4 mg IVP X1 ONE Stop: 12/15/24 19:27 Last Admin: 12/15/24 22:15 Dose: Not Given Non-Formulary Medication (Midodrine) 10 mg PO TID MICHELLE Stop: 01/19/25 13:59 Ondansetron HCl (Ondansetron Odt 4 Mg Tabrap) 4 mg PO X1 ONE; Protocol Stop: 12/15/24 14:26 Last Admin: 12/15/24 14:45 Dose: 4 mg Pharmacy Consult (Pharmacy Renal Dose Adjustment 1 Ea) 1 each XX PRN PRN PRN Reason: CONSULT Stop: 01/15/25 00:52 Pharmacy Consult (Vancomycin Pharmacy To Dose 1 Each Each) 1 each IV QDAY PRN PRN Reason: PROTOCOL Stop: 01/16/25 08:59 Potassium Chloride (Potassium Chloride 20 Meq Tabcr) 40 meq PO X1 ONE Stop: 12/17/24 11:39 Last Admin: 12/17/24 12:39 Dose: Not Given Sodium Chloride (Sodium Chloride Rt 10% 15 Ml Nebu) 5 ml INH X1 ONE Stop: 12/18/24 08:14 Last Admin: 12/18/24 18:41 Dose: Not Given Assessment & Plan Plan 54 y/o F with PMHx significant for ESRD (T//Wed), CHF, type 2 diabetes, hypothyroidism, dermoid tumor presents with chief complaint nausea, vomiting, fever for about a week. Patient found to have ESBL E. coli and cocci positive IgM and therefore ID was consulted. #ESBL E. coli #Cocci positive IgM Patient found to have ESBL E. coli, but mostly asymptomatic, currently on meropenem Patient found to have cocci IgM positive pending [facility] results Patient on fluconazole renally dosed Continue renally dosed fluconazole until results for cocci are back ESRD on HD TTS Type 2 diabetes, patient history Hyperglycemia Hypothyroidism CHF Lactic acidosis Dermoid tumor Continue management per primary team Case discussed with attending Dr Earl Porter MD PGY3
--- NOTE | 2024-12-20 19:29 | ESCONSULT_ITS ---
RE: LILIAN SLOAN : 1970 DATE OF CONSULTATION: 12/20/2024 REFERRING PHYSICIAN: Dr. Dickinson. REASON FOR CONSULTATION: Valley fever test positive in a 54-year-old woman with persistent bilateral infiltrates. HISTORY OF PRESENT ILLNESS: The patient is an unfortunate lady, 54-year-old, with dialysis. So, she has hypothyroidism and hyperlipidemia based on medications and she is 2 para 2. She has been sick since about Wednesday of last week and was sick about 5 days prior to admission. She has had cough for uncertain duration of time and her valley fever IgM is positive locally. We are waiting on a test at [facility], but that may take a few days or maybe back Wednesday at the earliest. She came in with nausea and vomiting except with abdominal symptoms. Her urinalysis was the best it has been in a number of months, but it was cultured anyway and is growing the ESBL-producing E. coli. We will treat that with Macrobid p.o. She has got a number of allergies, so we will have limited options. Otherwise, she is sensitive to Bactrim and Zosyn, which we could use, but with her allergies, we should probably not avoid the penicillin family of drugs. Sharon does not have any relative in the sulfa or the penicillin class. Her surgical history includes prior C-sections for both her babies, oral surgery, she had dentures placed a number of years ago and had an eye surgery a couple of years ago for cataracts from her diabetes. She has had also dialysis access procedure consisting of left arm AV fistula. Also prior history of left arm AV fistula is noted. ALLERGIES: TO MULTIPLE INCLUDE VICODIN, SULFA, PENICILLIN, AND ONE OTHER MEDICATION. IMMUNIZATIONS: Last tetanus is about 20 years ago. She does take flu shot every year. She has had COVID vaccine, but she does not recall how many and has had pneumococcal vaccine as well. FAMILY HISTORY: Positive for diabetes in multiple relatives mostly on both sides. SOCIAL HISTORY: She lives with her and 2 children, ages 26 and 22 and is a former smoker and quit in 2001 when she was first with her oldest. I did not ask for alcohol use. She is on 2 L of oxygen at home by her own statement. She may have fluid overload. There is no echocardiography that I can locate and fluid overload is hard to diagnose in dialysis patients. Her chest x-ray per radiology in 2020 was benign so her most recent x-ray is probably significant for a new process. She has had no chest pain or chest tightness. I do not get any history to suggest coronary artery disease. She did have abdominal pain, which can be a manifestation of coronary artery disease in some persons. Her valley fever test is positive, so we need to rule that out first. If you need to check echocardiogram for cardiac dysfunction, you may want to do an LDH. Her cocci cf test may be available on Wednesday from [facility]. If she is ready to go home before then and if she is down to 2 L per minute oxygen, which is the same as she is at home, she may go home at your discretion. She has chronic kidney disease, valley fever, abdominal pain, and possibly cystitis as well. For the cystitis, we will give her Macrobid 100 mg b.i.d. through Wednesday. Three days of Macrobid should be sufficient for that. I will see her again on Wednesday if she goes home. I can see her if her test is positive at [facility], but if she is negative, she should repeat the valley fever test and if it is still negative, then she could go off treatment and follow up with outpatient primary and renal. There is no need for followup with infectious disease unless she is positive for valley fever. DT: 16:12:42 TT: 19:09:00 Ref: [id number] - TID: [id number] [email or web address]
[2024-12-20] MEDS: NITROFURANTOIN MACRO 100 MG CAPSULE PO (21:00)
[2024-12-20] MEDS: ATORVASTATIN CALCIUM 20 MG TABLET 80 MG PO (21:00)
[2024-12-20] MEDS: INSULIN GLARGINE (Lantus) 5 UNIT/0.05 ML (PER 5 UNITS) 20 UNIT SC (21:01)
[2024-12-21] VITALS (22 sets, daily range): BP systolic 117–166; BP diastolic 64–89; PULSE 72–103; RESP 18–36; TEMP 36.3–36.8; O2SAT 93–99
[2024-12-21] MEDS: LEVOTHYROXINE SODIUM 25 MCG TABLET 37.5 MCG PO (05:46)
[2024-12-21] MEDS: METOCLOPRAMIDE INJ 5 MG/ML VIAL 2 ML IVP ×2 (05:47→11:18)
[2024-12-21] MEDS: INSULIN LISPRO (AdmeLOG) 1 UNIT/0.01 ML UNIT SC ×2 (07:32→11:48)
[2024-12-21] MEDS: allopurinoL 100 MG TABLET 300 MG PO (08:17)
[2024-12-21] MEDS: VIT B12/Vit C/FA (Nephrovite) TABLET 1 TAB PO (08:17)
[2024-12-21] MEDS: SEVELAMER CARBONATE 800 MG TABLET PO ×2 (08:17→11:18)
[2024-12-21] MEDS: amLODIPine BESYLATE 5 MG TABLET 10 MG PO (08:18)
[2024-12-21] MEDS: NITROFURANTOIN MACRO 100 MG CAPSULE PO (08:18)
[2024-12-21] MEDS: FLUCONAZOLE 100 MG TABLET 200 MG PO (08:18)
[2024-12-21] MEDS: HEPARIN SOD INJ 5000 UNIT/ML VIAL SC (08:19)
--- NOTE | 2024-12-21 09:21 | ESDS_ITS ---
<Statement entered by Dorys Hernandez DO - 12/22/24 09:24> I, Dorys Hernandez DO, attest that I was physically present for the duffy portions of the service and evaluated the patient with the resident and I reviewed and discussed the case with the resident and agree with the resident's findings and plans of care as documented above <Statement entered by Jaskaran Banks MD - 12/21/24 18:32> I discussed with and supervised the senior internet sales consultant physician involved in the care of this patient. Patient assessment and plan was discussed with entire medicine team, including my attending. I agree with the assessment and plan as documented by senior internet sales consultant doctor. Patient care was discussed with my attending physician Dr. Mary Banks, PGY-2 Planned Discharge Date 12/21/24 DS: Providers Provider Date of admission: 12/15/24 23:32 Primary care physician: Sarah Anderson NP Admitting Provider: Dandre Dickinson MD Attending Provider on Admission: Dorys Hernandez DO Consults: 12/15/24 22:45 Consult to Nephrology Stat Comment: ESRD Consulting Provider: Madi Larry 12/19/24 09:42 Consult to Infectious Diseases Routine Comment: esbl e.coli uti and cocci Consulting Provider: Armin Elliott Attending Provider on DC: Jovi Orourke MD Discharging Provider: Jovi Orourke MD DS: Diagnosis Problem List Completed Was Problem List Reviewed/Reconciled?: Yes Hospital Course Hospital Course Hospital course: 54 y/o F with PMHx significant for ESRD (//Wed), CHF, type 2 diabetes, hypothyroidism, dermoid tumor presents with chief complaint nausea, vomiting, fever for about a week. Patient found to have ESBL E. coli UTI and cocci positive IgM Hospital course: Labs at the time of admission are significant for WBC 14.4, sodium 128, anion gap 21, BUN 47, creatinine 6.5, EGFR 7, glucose 62, osmolarity 300, BNP 452, BHP 0.1, lactic acid 1.8, Pro-Sebastian 6.1, CRP 20.9, serum hCG positive, VBG pH 7.5, pCO2 33. Urinalysis: 3+ protein, 4+ glucose, 1+ blood, positive leukocyte esterase, 76 RBCs, 11 WBCs, 7 squamous epithelial cells, 1+ bacteria. Imaging significant for: Catheter, possible effacement. 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 Marked abnormal thickening of urinary bladder. Severe spinal stenosis L4-L5. Patient tested positive for cocci IgM. Urinary cultures came back positive for ESBL E. coli. Blood cultures come back negative. Patient was treated with meropenem and fluconazole. Infectious diseases, Dr. Elliott was consulted and he recommended Macrobid, but as patient is on hemodialysis patient received 1 dose of fosfomycin in view of ESBL E. coli UTI. Patient received her routine dialysis sessions in the hospital. Patient found to have elevated blood pressures during the hospital stay and she was started on amlodipine 10 Mg once daily Patient is discharged to home with the following medications and recommendations -Follow-up with PCP within 1 week of discharge. If you do not have appointment, please follow-up with the [facility] with Dr. Orourke. Call [phone] to make an appointment. -Follow up with Dr. Larry for further Hemodialysis -Start Amlodipine 10mg orally once daily, Fluconazole 200mg once daily orally -Recommended to follow up on liver function tests with PCP as fluconazole can affect with liver functions -Recommended to decrease Insulin Glargine to 20 units and adjust the insulin based on Fasting blood sugars and keep the fasting blood sugars between 90-140 -Recommended to take midodrine as needed if SBP <100/60 and ondansetron as needed for nausea/vomiting -Stop Diltiazem -Continue rest of the home medications as previously prescribed -Recommended salt and fluid restriction. -Return to ED if symptoms persist or return Patient plan of care was discussed with the attending physician, Dr. Hernandez and senior resident Dr. Jocelyn Orourke, PGY1 Intractable nausea/vomiting, resolved Sepsis, resolved Pneumonia, coccidiomycosis ESBL E.Coli UTI ESRD on HD TTS Type 2 diabetes, patient history Hyperglycemia Hypothyroidism CHF Lactic acidosis (resolved) Dermoid tumor Patient plan of care was discussed with the attending physician, Dr. Hernandez and senior resident Dr. Jocelyn Orourke, PGY1 Time Spent with Patient Time attestation: Total time spent providing and/or coordinating discharge services: Time spent: Greater than 30 minutes Exam Vital Signs Temp Pulse Resp BP Pulse Ox O2 Del Method O2 Flow Rate 98.2 F 89 18 149/87 H 93 L Nasal Cannula 3 12/21/24 08:00 12/21/24 08:18 12/21/24 08:00 12/21/24 08:18 12/21/24 08:00 12/21/24 08:00 12/21/24 08:00 Narrative Exam General: Awake. HEENT: Normocephalic, atraumatic, mucous membranes moist. Heart: Regular rate and rhythm, pansystolic murmur heard in all areas. Lungs: Clear to auscultation with no wheezing or crackles. Abdomen: Soft, nondistended, nontender, positive bowel sounds. ?No guarding or rebound tenderness. Neurologic: Alert and oriented x3, no gross neurological deficit, and patient able to move all 4 extremities. Extremities: No edema. Noted fistula in left upper extremity Skin: No rash or ecchymoses. Discharge Plan Plan Patient Disposition: HOME (Self Care) Disposition Comment: after dialysis Patient condition on transfer: Stable Care Plan Goals: -Follow-up with PCP within 1 week of discharge. If you do not have appointment, please follow-up with the [facility] with Dr. Orourke. Call [phone] to make an appointment. -Follow up with Dr. Larry for further Hemodialysis -Start Amlodipine 10mg orally once daily, Fluconazole 200mg once daily orally -Recommended to follow up on liver function tests with PCP as fluconazole can affect with liver functions -Recommended to decrease Insulin Glargine to 20 units and adjust the insulin based on Fasting blood sugars and keep the fasting blood sugars between 90-140 -Recommended to take midodrine as needed if SBP <100/60 and ondansetron as needed for nausea/vomiting -Stop Diltiazem -Continue rest of the home medications as previously prescribed -Recommended salt and fluid restriction. -Return to ED if symptoms persist or return Prescriptions/Referrals Prescriptions/Med Rec: New fluconazole 100 mg Tablet 200 mg PO QDAY Qty: 30 1RF amlodipine 5 mg Tablet 10 mg PO QDAY Qty: 30 1RF Continued allopurinol 300 mg tablet 300 mg PO QDAY Татьяна-Toby 0.8 mg tablet 1 tab PO QDAY levothyroxine 25 mcg Tablet 37.5 mcg PO DAILY Humulin R Regular U-100 Insuln 100 unit/mL Solution 1 unit subcut PRN PRN (Reason: Hyperglycemia) Patient Comments: sliding scale sevelamer HCl [Renagel] 800 mg Tablet 800 mg PO TID Rx Instructions: must administer with a meal/food ergocalciferol (vitamin D2) [Vitamin D2] 1,250 mcg (50,000 unit) Capsule 1,250 mcg PO 2 X WEEKLY atorvastatin 80 mg tablet 80 mg PO .pm furosemide 40 mg tablet 20 mg PO QWEEK Patient Comments: per patient 0.5 tablet prn Changed ondansetron 4 mg tablet,disintegrating 4 mg PO PRN PRN (Reason: nausea or vomitings) Qty: 30 0RF midodrine 10 mg Tablet 10 mg PO PRN PRN (Reason: if sbp<100) Qty: 30 0RF Patient Comments: per patient as needed for low blood pressure Rx Instructions: Take 1 tablet as needed if BP<100/60 insulin glargine [Basaglar KwikPen U-100 Insulin] 100 unit/mL (3 mL) Insulin Pen 20 unit SUBCUT QAM Qty: 15 2RF Discontinued diltiazem HCl 240 mg capsule,extended release 24hr 240 mg PO QDAY Novolin R Regular U100 Insulin 100 unit/mL solution 1 sliding scale dose subcut USEASDIRECTD Referrals: Sarah Anderson NP [Primary Care Provider] - Patient/Caregiver Discharge Instructions Education Materials: Using a Blood Sugar Log, Diabetes: Inspecting Your Feet, Anatomy of the Female Urinary Tract, Kidney Disease: Limiting Fluids, Your Diabetes Foot Care Program, Diabetes and High Blood Pressure Print Language: Hebrew Stand Alone Forms: Karishma Award Info., Patient Portal Info Letter Discharge Order Discharge Orders: Discharge (Routine); Ordered 12/21/24 Ordered By: Jovi Orourke Quality Discharge Quality Measures VTE prophylaxis
--- NOTE | 2024-12-21 09:33 | PC.NURSE ---
discharge pending completion of dialysis
[2024-12-21] MEDS: MIDODRINE 5 MG TABLET 10 MG PO (10:23)
--- NOTE | 2024-12-21 10:52 | PC.SS ---
METHODS ANALYST notified by bedside nurse that patient will need tubing and nasal cannula for oxygen upon discharge home. METHODS ANALYST updated management planner via voicemail.
--- NOTE | 2024-12-21 12:26 | PC.NURSE ---
Patient saturating at 88% on room air.
[2024-12-21 12:27] LABS: Basophils % (Auto) 0 % (0-2.5); Eosinophils # (Auto) 0.2 Thou/mm3 (0.0-0.5); Eosinophils % (Auto) 2 % (0-10); Hematocrit 22.6 % (36.0-46.0); Immature Granulocytes % (Auto) 2 % (0-0); Immature Granulocytes Auto 0.17 Thou/mm3 (0.00-0.00); Lymphocytes # (Auto) 1.1 Thou/mm3 (1.0-4.8); Lymphocytes % (Auto) 12 % (10-50); Mean Corpuscular HGB Conc 32.3 g/dl (31.0-37.0); Mean Corpuscular Hemoglobin 32.4 pg (25.0-35.0); Mean Corpuscular Volume 100 fL (80-100); Monocytes # (Auto) 0.6 Thou/mm3 (0.0-0.8); Monocytes % (Auto) 7 % (0-12); Neutrophils # (Auto) 7.7 Thou/mm3 (1.8-7.7); Neutrophils % (Auto) 78 % (37-80); Nucleated Red Blood Cell % 0 /100 WBC (0); Platelet Count 236 Thou/mm3 (140-440); RDW Standard Deviation 52.5 fL (36.4-46.3); Red Blood Count 2.25 Miln/mm3 (4.00-5.20); White Blood Count 9.8 Thou/mm3 (3.6-11.0)
[2024-12-21 12:28] LABS: Hemoglobin 7.3 g/dL (12.0-16.0)
[2024-12-21 12:42] LABS: Anion Gap 12 (7-16); BUN/Creatinine Ratio 6 Ratio (12-20); Blood Urea Nitrogen 33 mg/dL (9-23); Calcium 8.8 mg/dL (8.3-10.6); Chloride 96 mMol/L (98-107); Creatinine (Component) 5.6 mg/dL (0.6-1.3); Estimated Creatinine Clearance 12.4 mL/min (>60); Glucose 251 mg/dL (74-106); Osmolality,Calculated 285 (275-295); Potassium 3.1 mMol/L (3.4-5.1); Sodium 135 mMol/L (136-145); eGFR 9 See Note
[2024-12-21] MEDS: FOSFOMYCIN PWD 3 GM PACKET (NON-FORMULARY) PO (15:41)
== END 2024-12-21 16:19 | disposition home or self-care (01) | DRG 871 ==
LOC: SERX 23:04 → SERHOLD 23:55 → S3NX 12-18 05:37 → S2NX 12-18 05:37
PROVIDERS: Emergency Medicine; Internal Medicine; Internal Medicine Nephrology; Nurse Practitioner Family; Admitting Provider Student in an Organized Health Care Education/Training Program; Emergency Provider Emergency Medicine; PCP Registered Nurse Community Health; Visit Provider Internal Medicine
DX: A41.51 Sepsis due to Escherichia coli [E. coli] (principal); J18.9 Pneumonia, unspecified organism; N18.6 End stage renal disease; I13.2 Hypertensive heart and chronic kidney disease with heart failure and with stage 5 chronic kidney disease, or end stage renal disease; B38.0 Acute pulmonary coccidioidomycosis; E87.1 Hypo-osmolality and hyponatremia; E87.20 Acidosis, unspecified; Z16.12 Extended spectrum beta lactamase (ESBL) resistance; Z99.2 Dependence on renal dialysis; E11.22 Type 2 diabetes mellitus with diabetic chronic kidney disease; E03.9 Hypothyroidism, unspecified; D36.7 Benign neoplasm of other specified sites; E11.65 Type 2 diabetes mellitus with hyperglycemia; I50.9 Heart failure, unspecified; M48.061 Spinal stenosis, lumbar region without neurogenic claudication; N30.90 Cystitis, unspecified without hematuria; Z87.891 Personal history of nicotine dependence; Z79.4 Long term (current) use of insulin; Z79.890 Hormone replacement therapy; Z88.0 Allergy status to penicillin; Z88.5 Allergy status to narcotic agent
CPT/HCPCS: 36415; 36600; 71045; 71250; 74176; 76705; 80048; 80053; 80074; 80202; 81001; 81025; 82010; 82803; 83036; 83605; 83690; 83735; 83880; 84100; 84145; 84439; 84443; 84484; 84702; 84703; 85025; 85652; 86140; 86635; 86706; 87040; 87077; 87081; 87086; 87106; 87186; 87205; 87400; 87811; 96361; 96365; 96366; 96367; 96372; 96375; 99285; G0378; J0692; J0696; J1644; J1815; J2185; J2405; J2765; J3370; J3372; J3475; J3480; J7030; J7040; J7050; J7120; P9047; Q0162; A9270

== ENCOUNTER → 2025-01-10 | Outpatient (CLI) | payer MEDICARE, MEDICAID, SELFPAY ==
--- NOTE | 2025-01-10 14:49 | XR_ITS ---
Examination: PA lateral chest 2 views TECHNIQUE: Upright PA lateral chest 2 views Exam date and time: January 10, 2025 1513 hours Comparison December 20, 2024 INDICATIONS: Coccidioidomycosis diagnosis with coughing shortness of breath 3 weeks. FINDINGS: Significant pneumonia posterior basal segment left lower lobe Normal heart size Prominent osteopenia IMPRESSION: Significant pneumonia posterior basal segment left lower lobe
== END | disposition home or self-care (01) ==
LOC: CDIM 14:44
PROVIDERS: PCP Registered Nurse Community Health; Referring Provider Registered Nurse Community Health; Visit Provider Registered Nurse Community Health
DX: J18.9 Pneumonia, unspecified organism (principal)
CPT/HCPCS: 71046

== ENCOUNTER → 2025-01-15 | Outpatient (CLI) | payer MEDICARE, SELFPAY ==
[2025-01-15 13:53] LABS: Coccid Serology, CF (UCD)* See Sep Rpt
== END | disposition home or self-care (01) ==
LOC: COPL 13:35
PROVIDERS: PCP Registered Nurse Community Health; Referring Provider Registered Nurse Community Health; Visit Provider Registered Nurse Community Health
DX: B38.9 Coccidioidomycosis, unspecified (principal)
CPT/HCPCS: 86171

== ENCOUNTER → 2025-01-24 | Outpatient (CLI) | payer MEDICARE, SELFPAY ==
--- NOTE | 2025-01-24 08:30 | XR_ITS ---
Examination: Screening digital mammography, bilateral Computer aided detection 3-D breast Tomosynthesis, bilateral Date and time of exam: January 24, 2025 0825 hours Compared to mammograms dating to February 27, 2020 Indication: Screening Technique: Nonmagnified MLO, CC views of the breasts to been obtained, reconstructed from 3-D Tomosynthesis images. R2 computer aided detection program utilized for evaluation of suspicious masses and/or abnormal calcifications. 3-D Tomosynthesis images obtained. Findings: Scattered areas of fibroglandular density. Benign calcifications. No interval suspicious masses Impression: BI-RADS category II: Benign Findings. Recommend 1 year follow-up mammogram.
== END | disposition home or self-care (01) ==
PROVIDERS: PCP Registered Nurse Community Health; Referring Provider Registered Nurse Community Health; Visit Provider Registered Nurse Community Health
DX: Z12.31 Encounter for screening mammogram for malignant neoplasm of breast (principal); R92.323 Mammographic fibroglandular density, bilateral breasts; R92.1 Mammographic calcification found on diagnostic imaging of breast
CPT/HCPCS: 77063; 77067

== ENCOUNTER → 2025-01-26 | Outpatient (CLI) | payer MEDICARE, SELFPAY ==
--- NOTE | 2025-01-26 | XR_ITS ---
Examination: PA lateral chest 2 views TECHNIQUE: Upright PA lateral chest 2 views Date and time: January 26, 2025 1215 hours INDICATIONS: Diagnosis pneumonia left lower lobe on chest film 30 days ago. FINDINGS: There remains significant parenchymal disease left base posterior basal segment obscuring detail posterior portion left hemidiaphragm Right lung clear Normal heart size IMPRESSION: Consider repeat CT chest without contrast to assess significant parenchymal disease posterior basal segment left lower lobe
== END | disposition home or self-care (01) ==
LOC: CDIM 11:54
PROVIDERS: Referring Provider Registered Nurse Community Health; Visit Provider Registered Nurse Community Health
DX: J18.9 Pneumonia, unspecified organism (principal)
CPT/HCPCS: 71046

== ENCOUNTER → 2025-01-29 | Outpatient (CLI) | payer MEDICARE, SELFPAY ==
--- NOTE | 2025-01-29 | XR_ITS ---
Examination: Lumbar spine, 5 views Technique: Lumbar spine AP, lateral, coned lateral lower lumbar spine, bilateral obliques 5 views Exam date and time: January 29, 2025 1130 hours INDICATIONS: Low back pain radiating down the right leg beginning 5 days ago. FINDINGS: Prominent osteopenia Grade 1 anterolisthesis L4 on L5 Moderate degenerative disc disease L4-L5, L5-S1 Small chip fracture off the anterior superior margin L5 IMPRESSION: Moderate degenerative disc disease L4-L5, L5-S1 No acute lumbar fracture
== END | disposition home or self-care (01) ==
LOC: CDIM 11:02
PROVIDERS: PCP Registered Nurse Community Health; Referring Provider Registered Nurse Community Health; Visit Provider Registered Nurse Community Health
DX: M51.379 Other intervertebral disc degeneration, lumbosacral region without mention of lumbar back pain or lower extremity pain (principal)
CPT/HCPCS: 72110

== ENCOUNTER 2025-02-20 20:16 | Emergency (ER) | payer MEDICARE, SELFPAY ==
[2025-02-20 20:26] VITALS: PULSE 93; RESP 20; O2SAT 97
[2025-02-20 20:28] VITALS: BP 114/87; PULSE 93; RESP 20; TEMP 37.6; O2SAT 98; BMI 33.0
--- NOTE | 2025-02-20 20:32 | EDNOTE_ITS ---
ED General RME/HPI General Chief complaint: Extremity Injury, Lower Stated complaint: L.LOWER BACK PAIN & LEFT LOWER LEG PAIN Time Seen by Provider: 02/20/25 20:30 Arrival date/time: 02/20/25 20:16 RME / HPI RME / HPI narrative: 54-year-old female with past medical history of ESRD (//Wed), CHF, type 2 diabetes, hypothyroidism, and dermoid tumor comes into the hospital brought in by ambulance due to lower extremity pain. Patient states that around 2 weeks ago she had a fall where her legs gave up and she landed on her knees and otherwise did not hit her back, but that she did have right lower leg pain along with lower back pain at this time and afterwards. She mentions that she had another fall while 1 week ago where she fell sideways and landed on her right side. She saw her primary care physician when the first fall happened and they did a lumbar spine x-ray which showed a small chip fracture of anterior superior margin of the L5. She mentions that today her left leg started hurting severely a 10 out of 10 and started with back pain that radiates to the left lower extremity. She also mentioned that for the past 4 days she has had bowel urgency and has passed bowel movements without being able to reach the bathroom even when she tried to hold it. Patient denies having any fevers, chills, nausea, vomiting, headaches, or shortness of breath. Otherwise no other complaints at this time. Past smoker, denies any drugs, admits social drinking. Related Data Home Medications ?Medication ?Instructions ?Recorded ?Confirmed insulin regular human 100 unit/mL 1 unit subcut PRN VA N Hyperglycemia 04/17/20 12/19/24 injection solution (Humulin R Regular U-100 Insulin) levothyroxine 25 mcg tablet 37.5 mcg PO DAILY 04/17/20 12/19/24 ergocalciferol (vitamin D2) 1,250 1,250 mcg PO 2 X WEE KLY 08/25/23 12/19/24 mcg (50,000 unit) capsule (Vitamin D2) sevelamer HCl 800 mg tablet 800 mg PO TID 08/25/2305/05 (Renagel) allopurinol 300 mg tablet 300 mg PO QDAY 03/16/2412/10 vitamin B complex-vitamin C-folic 1 tab PO QDAY 12/19/24 acid 0.8 mg tablet (Татьяна-Toby) atorvastatin 80 mg tablet 80 mg PO .pm 12/19/24 furosemide 40 mg tablet 20 mg PO QWEEK 12/19/2412/10 Previous Rx's ?Medication ?Instructions ?Recorded amlodipine 5 mg tablet 10 mg (2 x 5 mg) PO QDAY #30 tabs 12/21/24 fluconazole 100 mg tablet 200 mg (2 x 100 mg) PO QDAY #30 12/21/24 tabs insulin glargine 100 unit/mL (3 20 unit (0.2 mL) subcu t QAM #15 mL 12/21/24 mL) subcutaneous pen (Basaglar KwikPen U-100 Insulin) midodrine 10 mg tablet 10 mg PO PRN PRN if sbp<100 #30 12/21/24 tabs ondansetron 4 mg disintegrating 4 mg PO PRN PRN nausea or 12/21/24 tablet vomitings #30 tabs dexamethasone 4 mg tablet 4 mg PO Q8H #11 tabs 5 hydromorphone 2 mg tablet 2 mg PO BID Pain moderate to 02/21/25 severe #4 tabs Allergies Allergy/AdvReac Type Severity Reaction Status Date / Time codeine Allergy Severe Swelling Verified 08/15/24 15:08 hydrocodone Allergy Severe Swelling Verified 08/15/24 15:08 Penicillins Allergy Severe Difficulty Verified 08/15/24 15:08 Breathing sulfamethoxazole (From Allergy Severe Swelling Verified 08/15/24 15:08 Bactrim) of Lip/Tongue/Throat trimethoprim (From Bactrim) Allergy Severe Swelling Verified 08/15/24 15:08 of Lip/Tongue/Throat Review of Systems Review of Systems Systems Reviewed: All systems reviewed, normal except as documented Past Medical History Past Medical History Comments PMH COMMENT: PMH: ESRD, CHF, diabetes, hypothyroidism, dermal tumor PSH: 2 C-sections, left upper extremity fistula placement, cataract surgery SH: Quit smoking 23 years ago, 15-alzq-srof history. Endorses 1 glass of wine every 2 weeks, denies any illicit drug use. Allergies:?Codeine, hydrocodone, penicillin, sulfa drugs Medications: Atorvastatin, levothyroxine, allopurinol, midodrine, 25 units of long-acting insulin and insulin sliding scale. ED Exam Narrative Physical exam: Physical exam done with woody Bustillos RN, present Gen: A&O X 3, moderate distress due to pain HEENT: NCAT, EOMI, Pupils reactive IRENE, not icteric. External ears normal. No rhinorrhea. Moist mucous membranes. Neck: Supple, full range of motion, no observable masses, No meningeal sign. Lungs: No Respiratory distress, clear bilateral. CV: RRR, no murmurs. Abdomen: Soft, nondistended, No rebound tenderness. MSK: No joint swelling, no redness, peripheral pulses presents, lumbar without edema, but tender with palpation, no gross deformities appreciated, positive leg raise bilaterally, decreased sensation on the left lower extremity, no foot drop. Rectal: Charcoal colored stool noted, anal sphincter tone decreased. Skin: No rashes, petechiae, lesions.. Neuro: No focal neurological deficits appreciated, sensorium mildly decreased on left lower extremity compared to the right lower extremity, motor strength bilaterally 5 out of 5 in upper and lower extremities. Psych: In distress due to pain Course Quality Measures none Orders Category Date Time Status Call [employer] Prothetics [facility] Orthotics Routine Care 02/21/25 01:20 Ordered Store Management Trainee Q4H START 00 Care 02/20/25 20:33 Active Store Management Trainee Q4H START 00 Care 02/20/25 20:47 Active Continuous Pulse Oximetry NOW Care 02/20/25 20:33 Completed Continuous Pulse Oximetry NOW Care 02/20/25 20:47 Completed EKG (ED ONLY) *Do not use* NOW Care 02/20/25 20:[address] lumbar spine wo con Stat Exams 02/20/25 20:53 Completed EKG (ED Only) Stat Exams 02/20/25 20:47 Draft CBC [CBC] Stat Lab 02/20/25 22:20 Completed CMP [Comprehensive Metabolic Panel] Stat Lab 02/20/25 22:20 Completed Lactic Acid [Lactate (Lactic Acid)] Stat Lab 02/20/25 22:20 Completed Magnesium Stat Lab 02/20/25 22:20 Completed Procalcitonin Stat Lab 02/20/25 22:20 Completed HYDROmorphone INJ [Dilaudid Inj] Med 02/20/25 20:57 Discontinued 0.25 mg IVP X1 ONE HYDROmorphone INJ [Dilaudid Inj] Med 02/20/25 21:46 Discontinued 0.25 mg IVP X1 ONE HYDROmorphone INJ [Dilaudid Inj] Med 02/21/25 04:27 Discontinued 0.25 mg IVP X1 ONE HYDROmorphone INJ [Dilaudid Inj] Med 02/20/25 21:56 Discontinued 0.5 mg IVP X1 ONE Ketorolac Inj [Toradol Inj] Med 02/20/25 20:37 Discontinued 30 mg IVP X1 ONE dexAMETHasone TAB [Decadron Tab] Med 02/21/25 01:03 Discontinued 4 mg PO X1 ONE dexAMETHasone TAB [Decadron Tab] Med 02/21/25 01:30 Discontinued 4 mg PO X1 ONE traMADol HCL [Ultram] Med 02/20/25 20:52 Discontinued 50 mg PO X1 ONE Referral [employer] Gro[employer] Machine Setter NOW 02/21/25 01:21 Active Vital Signs Vital signs: Vital Signs Temperature 99.7 F 02/20/25 20:28 Pulse Rate 93 02/20/25 20:28 Respiratory Rate 20 02/20/25 20:28 Blood Pressure 114/87 H 02/20/25 20:28 Pulse Oximetry (%) 98 02/20/25 20:28 Oxygen Delivery Method Room Air 02/20/25 20:28 Discharge Plan Plan Patient Disposition: HOME (Self Care) Prescriptions/Referrals Prescriptions/Med Rec: New dexamethasone 4 mg tablet 4 mg PO Q8H Qty: 11 0RF hydromorphone 2 mg tablet 2 mg PO BID MDD 4 mg Qty: 4 0RF No Action allopurinol 300 mg tablet 300 mg PO QDAY Татьяна-Toby 0.8 mg tablet 1 tab PO QDAY levothyroxine 25 mcg Tablet 37.5 mcg PO DAILY Humulin R Regular U-100 Insuln 100 unit/mL Solution 1 unit subcut PRN PRN (Reason: Hyperglycemia) Patient Comments: sliding scale sevelamer HCl [Renagel] 800 mg Tablet 800 mg PO TID Rx Instructions: must administer with a meal/food ergocalciferol (vitamin D2) [Vitamin D2] 1,250 mcg (50,000 unit) Capsule 1,250 mcg PO 2 X WEEKLY atorvastatin 80 mg tablet 80 mg PO .pm furosemide 40 mg tablet 20 mg PO QWEEK Patient Comments: per patient 0.5 tablet prn ondansetron 4 mg tablet,disintegrating 4 mg PO PRN PRN (Reason: nausea or vomitings) Qty: 30 0RF midodrine 10 mg Tablet 10 mg PO PRN PRN (Reason: if sbp<100) Qty: 30 0RF Patient Comments: per patient as needed for low blood pressure Rx Instructions: Take 1 tablet as needed if BP<100/60 insulin glargine [Basaglar KwikPen U-100 Insulin] 100 unit/mL (3 mL) Insulin Pen 20 unit SUBCUT QAM Qty: 15 2RF fluconazole 100 mg Tablet 200 mg PO QDAY Qty: 30 1RF amlodipine 5 mg Tablet 10 mg PO QDAY Qty: 30 1RF Referrals: Sarah Anderson FNP [Primary Care Provider] - In 1 week Demetrius Tapia MD [Referring Provider] - 02/21/25 1:00 pm Problem List Clinical Impression: Spinal stenosis at L4-L5 level, Bulging lumbar disc Patient/Caregiver Discharge Instructions Other Activity Instructions:: Follow-up with neurosurgeon Dr. Tapia at [facility] tomorrow 02/21/2025 at 1 PM You have been prescribed dexamethasone 4 mg every 8 hours for the next 4 days. You have been given your first dose in the ER and therefore your next dose would be at 9 AM. You have been prescribed hydromorphone 2 mg tablets twice daily as needed for moderate to severe pain. Max doses 4 mg daily. Gave you supply until you see neurosurgeon. Use back brace until you see neurosurgeon tomorrow. Come back to the ED if symptoms persist or worsen or if you develop any worsening neurological deficits. Education Materials: Back Safety Bed, Anatomy of a Normal Spine, Common Spine and Disk Problems Print Language: Jamaican Stand Alone Forms: Karishma Award Info., Patient Portal Info Letter MDM Narrative MDM hospital course: Patient was seen and evaluated by myself upon arrival. Diagnostic labs and imaging were ordered. Dilaudid 0.25 mg IV was given x 1 for pain. Physical exam performed with woody Bustillos RN, showed decreased rectal sphincter tone. We will proceed with lumbar spine CT to rule out spinal cord compression or spinal stenosis. Patient's lumbar spine CT came back and did show L4-L5 severe spinal stenosis due to a 10 mm central lumbar disc bulge severely indenting the thecal sac and L5-S1 lumbar disc bulge causing right L5 ganglionic compression. Given findings on lumbar spine CT and the need for MRI and given patient's clinical presentation we will proceed with transfer of patient to a tertiary care center for neurosurgery and MRI. Spoke with Dr. Chris Deng, neurosurgeon, at [facility] for possible transfer of patient given the necessity for neurosurgery. At this time Dr. Deng stated that patient will need higher level of care since patient does have a small chip fracture on the anterior superior margin of L5 and she would require an MRI to better assess. This given that there may be a possibility that patient may need spinal fusion and they do not have a spinal fusion capabilities at this time. Spoke with Dr. Tapia, neurosurgeon, at [facility] who reviewed the case and stated that patient can follow-up with him in his office tomorrow outpatient at 1 PM. Recommended to start Decadron 4 mg every 8 hours for the next 4 days along with a back brace. At this time patient's pain is well- controlled and we will start treatment as recommended by neurosurgeon and we will discharge the patient. Discussed with the patient and agrees with plan. Patient will need back brace prior to discharge. Patient remained stable throughout the whole night after 0.5 of Dilaudid, but around 4:30 AM patient again had pain therefore gave 0.25 of Dilaudid. Case disclosed with Attending Dr. Vince Kenney PGY2 Disclaimer: Even though this this note was dictated by speech recognition and even though it was carefully revised there may still be minor errors in senior it project manager due to voice recognition software. Medication Administration(s) Medication Administration History Discontinued Medications Dexamethasone (Dexamethasone 1 Mg Tablet) 4 mg PO X1 ONE; Protocol Stop: 02/21/25 01:04 Last Admin: 02/21/25 01:54 Dose: Not Given Documented By: WO Non-Admin Reason: Medication Not Available Dexamethasone (Dexamethasone 4 Mg Tablet) 4 mg PO X1 ONE; Protocol Stop: 02/21/25 01:31 Last Admin: 02/21/25 01:58 Dose: 4 mg Documented By: WO Hydromorphone HCl (Hydromorphone Inj 2 Mg/Ml Vial) 0.25 mg IVP X1 ONE Stop: 02/20/25 20:58 Last Admin: 02/20/25 21:03 Dose: 0.25 mg Documented By: KELLEN Hydromorphone HCl (Hydromorphone Inj 2 Mg/Ml Vial) 0.25 mg IVP X1 ONE Stop: 02/20/25 21:47 Last Admin: 02/20/25 21:58 Dose: Not Given Documented By: KELLEN Non-Admin Reason: Discontinued Hydromorphone HCl (Hydromorphone Inj 2 Mg/Ml Vial) 0.5 mg IVP X1 ONE Stop: 02/20/25 21:57 Last Admin: 02/20/25 22:05 Dose: 0.5 mg Documented By: KELLEN Hydromorphone HCl (Hydromorphone Inj 2 Mg/Ml Vial) 0.25 mg IVP X1 ONE Stop: 02/21/25 04:28 Last Admin: 02/21/25 04:44 Dose: 0.25 mg Documented By: KELLEN Ketorolac Tromethamine (Ketorolac Inj 30 Mg/Ml Vial) 30 mg IVP X1 ONE Stop: 02/20/25 20:38 Last Admin: 02/20/25 20:52 Dose: Not Given Documented By: KELLEN Non-Admin Reason: Cancelled by Provider Tramadol HCl (Tramadol Hcl 50 Mg Tablet) 50 mg PO X1 ONE Stop: 02/20/25 20:53 Last Admin: 02/20/25 21:00 Dose: Not Given Documented By: KELLEN Non-Admin Reason: Discontinued
--- NOTE | 2025-02-20 20:47 | EKG_ITS ---
[facility] Test Date: 2025-02-20 Pat Name: LILIAN SLOAN Department: Room: - Gender: Female Customer Agent: : 1970 Requested By: Todd Kenney Order Number: [id number] Reading MD: Todd Kenney Measurements Intervals Davis Rate: 98 P: 61 ND: 152 QRS: 50 QRSD: 94 T: 72 QT: 360 QTc: 462 Interpretive Statements SINUS RHYTHM Compared to ECG 08/25/2023 11:05:03 No significant changes /store/S0/[id number].pdf
--- NOTE | 2025-02-20 20:53 | XR_ITS ---
Examination: CT lumbar spine, without contrast. 2-D sagittal reconstructions. 2-D coronal reconstructions. 3-D reconstructions. Date and time of exam:February 20, 2025, 2116 hours INDICATIONS: Lower back pain 3 weeks radiating down left leg, getting worse CTDI: vol (mGy):33. DLP: (mGycm):914. Technique: Multiple 1.25 mm axial sections of the lumbar spine without intravenous contrast have been obtained. 2-D sagittal and coronal reconstructions have been obtained. 3-D reconstructions have been obtained. Low dose protocols were performed. One or more of the following dose reduction techniques were used; automated exposure control, adjustment of the mA and/or KV according to patient size, use of iterative reconstruction technique. Findings: Grade 1 anterolisthesis L4 on L5 Abnormal sclerosis with fractures involving the superior endplate S1, sagittal image 53, axial image 143 Old appearing chip fracture off the anterior superior margin L5 Moderate disc narrowing L4-L5 L5-S1 6 mm and the lumbar disc bulge contiguous with the right and left S1 nerve roots, extending to the foraminal regions with moderate right L5 ganglionic compression L4-L5 severe spinal stenosis, 10 mm central lumbar disc bulge severely indenting the thecal sac, axial image 87 More cephalad levels do not demonstrate disc protrusion IMPRESSION: Abnormal scoliosis with fractures involving the superior endplate S1, differential would include pathologic fracture Recommend MRI lumbar spine follow-up pre and postcontrast to exclude osseous metastatic disease L5-S1 6 mm central lumbar disc bulge with moderate right L5 ganglionic compression L4-L5 severe spinal stenosis secondary to 10 mm central lumbar disc bulge severely indenting the thecal sac
[2025-02-20 20:55] VITALS: PULSE 93
[2025-02-20] MEDS: HYDROmorphone INJ 2 MG/ML VIAL 0.25 MG IVP (21:03)
[2025-02-20 21:31] VITALS: TEMP 37.1
[2025-02-20] MEDS: HYDROmorphone INJ 2 MG/ML VIAL 0.5 MG IVP (22:05)
[2025-02-20 22:09] VITALS: PULSE 98
--- NOTE | 2025-02-20 22:22 | PC.NURSE ---
Daya contacted for transfer,L4-L5 Spinal stenosis and [id number] compression. Requesting Neuro Surgery[facility] [place] Deng- stated this will require higher level of care, suggested neuro spinal. He stated this would require Spinal effusion due to small shift fracture of superior margin of anterior L5. WIll reach out to [facility] and/or [facility].
[2025-02-20 22:34] LABS: Lactate (Lactic Acid) 1.4 mMol/L (0.4-2.0)
[2025-02-20 22:41] LABS: Basophils # (Auto) 0.0 Thou/mm3 (0.0-0.2); Basophils % (Auto) 0 % (0-2.5); Eosinophils # (Auto) 0.1 Thou/mm3 (0.0-0.5); Eosinophils % (Auto) 1 % (0-10); Hematocrit 31.3 % (36.0-46.0); Hemoglobin 9.7 g/dL (12.0-16.0); Immature Granulocytes Auto 0.10 Thou/mm3 (0.00-0.00); Lymphocytes # (Auto) 0.9 Thou/mm3 (1.0-4.8); Lymphocytes % (Auto) 9 % (10-50); Mean Corpuscular HGB Conc 31.0 g/dl (31.0-37.0); Mean Corpuscular Hemoglobin 29.1 pg (25.0-35.0); Mean Corpuscular Volume 94 fL (80-100); Monocytes # (Auto) 0.6 Thou/mm3 (0.0-0.8); Monocytes % (Auto) 7 % (0-12); Neutrophils # (Auto) 7.6 Thou/mm3 (1.8-7.7); Neutrophils % (Auto) 82 % (37-80); Nucleated Red Blood Cell # 0.00 Thou/mm3 (0.00-0.00); Nucleated Red Blood Cell % 0 /100 WBC (0); Platelet Count 403 Thou/mm3 (140-440); RDW Standard Deviation 54.2 fL (36.4-46.3); Red Blood Count 3.33 Miln/mm3 (4.00-5.20); White Blood Count 9.4 Thou/mm3 (3.6-11.0)
[2025-02-20 23:08] VITALS: BP 166/85; PULSE 100; RESP 17; TEMP 36.5; O2SAT 100
[2025-02-21 00:09] LABS: Alanine Aminotransferase < 7 U/L (10-49); Albumin, Serum 4.7 gm/dL (3.5-5.0); Albumin/Globulin Ratio 1.2 (1.2-2.2); Alkaline Phosphatase 115 U/L (46-116); Anion Gap 13 (7-16); Aspartate Amino Transferase 17 U/L (0-34); BUN/Creatinine Ratio 8 Ratio (12-20); Bilirubin,Total < 0.2 mg/dL (0.3-1.2); Blood Urea Nitrogen 36 mg/dL (9-23); Calcium 10.3 mg/dL (8.3-10.6); Calcium (Corrected) 10.3 mg/dL (8.5-10.1); Carbon Dioxide 28.1 mMol/L (20.0-31.0); Chloride 93 mMol/L (98-107); Creatinine (Component) 4.3 mg/dL (0.6-1.3); Estimated Creatinine Clearance 16.4 mL/min (>60); Globulin 3.8 gm/dL (2.3-3.5); Magnesium 2.3 mg/dL (1.6-2.6); Potassium 4.6 mMol/L (3.4-5.1); Procalcitonin 2.02 ng/ml (0.0-0.49); Sodium 134 mMol/L (136-145); Total Protein 8.5 gm/dL (5.7-8.2); eGFR 12 See Note
[2025-02-21 00:20] LABS: Glucose 279 mg/dL (74-106); Osmolality,Calculated 286 (275-295)
[2025-02-21 04:30] VITALS: BP 127/79; PULSE 105; RESP 20; TEMP 36.7; O2SAT 100
[2025-02-21] MEDS: HYDROmorphone INJ 2 MG/ML VIAL 0.25 MG IVP (04:44)
[2025-02-21 06:00] VITALS: BP 140/91; PULSE 89; RESP 18; TEMP 36.7; O2SAT 99
[2025-02-21 08:26] VITALS: BP 147/85; PULSE 86; RESP 16; TEMP 36.8; O2SAT 100
[2025-02-21 10:04] VITALS: BP 142/82; PULSE 92; RESP 16; TEMP 36.8; O2SAT 100
== END 2025-02-21 10:07 | disposition home or self-care (01) ==
PROVIDERS: PCP Registered Nurse Community Health
DX: M51.360 Other intervertebral disc degeneration, lumbar region with discogenic back pain only (principal); M48.061 Spinal stenosis, lumbar region without neurogenic claudication; E11.22 Type 2 diabetes mellitus with diabetic chronic kidney disease; N18.6 End stage renal disease; I50.9 Heart failure, unspecified; E03.9 Hypothyroidism, unspecified
CPT/HCPCS: 36415; 72131; 80053; 80307; 81001; 83605; 83735; 84145; 85025; 93005; 96374; 96376; 99284; J1171; J8540

== ENCOUNTER 2025-02-23 23:55 | Emergency (ER) | payer MEDICARE, MEDICAID, SELFPAY ==
[2025-02-23 23:59] VITALS: BP 197/75; RESP 16; TEMP 36.3; O2SAT 99; BMI 33.7
--- NOTE | 2025-02-24 01:02 | PD.EDBACK ---
ED Back Injury Pain RME/HPI General Chief Complaint: Back Pain/Injury Stated Complaint: BACK PAIN Time Seen by Provider: 02/24/25 00:45 Arrival date/time: 02/23/25 23:55 RME / HPI RME / HPI Narrative: DR. RIVERA MAIN ED EVALUATION: 54 y/o female with Hx of CHF, ESRD, and Dialysis BIBA from home presents to ED c/o severe back pain that is exacerbated with movement. She was discharged from ED 4 days ago and was supposed to F/U with neurosurgeon the following day. Patient states that her daughter called ahead of time and was told that no appointment was ever set for the patient to be seen. Patient receives dialysis Tuesdays, , and Saturdays. No other concerns or complaints expressed at this time. Related Data Home Medications ?Medication ?Instructions ?Recorded ?Confirmed insulin regular human 100 unit/mL 1 unit subcut PRN PRN Hyperglycemia 04/17/20 12/19/24 injection solution (Humulin R Regular U-100 Insulin) levothyroxine 25 mcg tablet 37.5 mcg PO DAILY 04/17/20 12/19/24 ergocalciferol (vitamin D2) 1,250 1,250 mcg PO 2 X WEEKLY 08/25/23 12/19/24 mcg (50,000 unit) capsule (Vitamin D2) sevelamer HCl 800 mg tablet 800 mg PO TID 08/25/23 12/19/24 (Renagel) allopurinol 300 mg tablet 300 mg PO QDAY 03/16/24 12/19/24 vitamin B complex-vitamin C-folic 1 tab PO QDAY 03/16/24 12/19/24 acid 0.8 mg tablet (Татьяна-Toby) atorvastatin 80 mg tablet 80 mg PO .pm 12/19/24 12/19/24 furosemide 40 mg tablet 20 mg PO QWEEK 12/19/24 12/19/24 Previous Rx's ?Medication ?Instructions ?Recorded amlodipine 5 mg tablet 10 mg (2 x 5 mg) PO QDAY #30 tabs 12/21/24 fluconazole 100 mg tablet 200 mg (2 x 100 mg) PO QDAY #30 12/21/24 tabs insulin glargine 100 unit/mL (3 20 unit (0.2 mL) subcut QAM #15 mL 12/21/24 mL) subcutaneous pen (Basaglar KwikPen U-100 Insulin) midodrine 10 mg tablet 10 mg PO PRN PRN if sbp<100 #30 12/21/24 tabs ondansetron 4 mg disintegrating 4 mg PO PRN PRN nausea or 12/21/24 tablet vomitings #30 tabs dexamethasone 4 mg tablet 4 mg PO Q8H #11 tabs 02/21/25 hydromorphone 2 mg tablet 2 mg PO BID Pain moderate to 02/21/25 severe #4 tabs morphine 15 mg immediate release 15 mg PO Q4H PRN pain #30 tabs 02/24/25 tablet Allergies Allergy/AdvReac Type Severity Reaction Status Date / Time codeine Allergy Severe Swelling Verified 08/15/24 15:08 hydrocodone Allergy Severe Swelling Verified 08/15/24 15:08 Penicillins Allergy Severe Difficulty Verified 08/15/24 15:08 Breathing sulfamethoxazole (From Allergy Severe Swelling Verified 08/15/24 15:08 Bactrim) of Lip/Tongue/Throat trimethoprim (From Bactrim) Allergy Severe Swelling Verified 08/15/24 15:08 of Lip/Tongue/Throat Review of Systems Review of Systems Systems Reviewed: All systems reviewed, normal except as documented Past Medical History Past Medical History CARDIAC: Positive Cardiac Disorders, Hypercholesterolemia, Congestive Heart Failure, Hypertension and Hypotension GASTROINTESTINAL: Positive Gastroesophageal Reflux Disease and Obesity GENITOURINARY: Positive Genitourinary Disorders, Renal Disease and Dialysis (TUES, THURS, SAT) REPRODUCTIVE: Positive Previous Pregnancies ENT: Positive Cataracts and Deafness (Left) ENDOCRINE: Positive Endocrine Disorders, Diabetes Mellitus Type 2 and Hypothyroidism HEMATOLOGIC: Positive Blood Disorders and Anemia OTHER HISTORY: Positive Hospitalization, Shingles, Falls, Blood Transfusions and Chicken Pox Family History FAMILY HISTORY: Positive Family Cardiac Disorders and Family Cancer Surgical History SURGICAL: Positive Oral Surgery and Section ED Exam Narrative Physical exam: Generally patient is alert oriented x 3 and in mild to moderate distress secondary to pain muscular skeletal exam shows the patient have bilateral lower lumbar tenderness to palpation without obvious spasm heart is regular rate and rhythm lungs clear to auscultation equal bilaterally abdomen soft bowel sounds present's and nontender extremities show palpable thrill to left upper extremity dialysis graft Course Quality Measures none Orders Category Date Time Status BMP [Basic Metabolic Panel] Stat Lab 02/24/25 01:16 Completed CBC Stat Lab 02/24/25 01:16 Completed Dexamethasone Inj [Decadron Inj] 10 mg Med 02/24/25 00:59 Discontinued Sodium Chloride 0.9% [Ns] 100 ml IV X1 HYDROmorphone INJ [Dilaudid Inj] Med 02/24/25 00:59 Discontinued 1 mg IVP X1 ONE HYDROmorphone INJ [Dilaudid Inj] Med 02/24/25 01:51 Discontinued 1 mg IVP X1 ONE Ketorolac Inj [Toradol Inj] Med 02/24/25 01:51 Discontinued 30 mg IVP X1 ONE Vital Signs Vital signs: Vital Signs Temperature 97.3 F 02/23/25 23:59 Respiratory Rate 16 02/23/25 23:59 Blood Pressure 197/75 H 02/23/25 23:59 Pulse Oximetry (%) 99 02/23/25 23:59 Oxygen Delivery Method Room Air 02/23/25 23:59 Back Pain / Injury MDM Narrative MDM Narrative:: Scribe Attestation: IAni am scribing for and in the presence of Dr. Rivera. Provider Notation: Although this document has been carefully reviewed, there may still be some phonetic and other typographical errors.? These errors are purely grammatical due to imperfections in the software program and should not be construed in any way to? compromise the substance of the patient's medical care during this visit. Patient had been taking 2 mg of Dilaudid p.o. at home with minimal effect. Here in the emergency room the patient was given Decadron 10 mg IV as well as Dilaudid 1 mg IV x 2 and she slept for most of the ER stay. She is to stop the Dilaudid at home. Morphine as prescribed. Follow-up with Dr. Dubois, [place] neurosurgeon as arranged during her previous ER visit here. I did review the results of the patient's CT of the lumbar spine without contrast on her previous ER visit here 2 days ago. It showed a 10 mm central lumbar disc bulge at L4-L5 and a 6 mm central lumbar disc bulge there was also the possibility of a small fracture involving the superior endplate of S1. Patient data External records reviewed:: [facility] previous records (Reviewed prior ED records available from 12/15/24. Patient was seen for Cystitis.) and EMS form Clinical information provided by:: patient and EMS Social determinants that could affect healthcare access:: none Patient has the following chronic illnesses:: Hypercholesterolemia, Congestive Heart Failure, Hypertension, Hypotension, Gastroesophageal Reflux Disease, Obesity, Renal Disease and Dialysis (TUES, THURS, SAT), Cataracts, Deafness, Diabetes Mellitus Type 2, Hypothyroidism, Anemia How is presenting disease/condition affected by chronic disease/condition?: exacerbated by Evaluation data The following diagnostics were reviewed and interpreted by me:: lab results Lab and/or radiology exams considered but not ordered:: None Interpretation Summary: See MDM above Medications / Prescriptions Medications or Prescriptions considered but not ordered:: None Medication administrations:: Medication Administration History Discontinued Medications Hydromorphone HCl (Hydromorphone Inj 2 Mg/Ml Vial) 1 mg IVP X1 ONE Stop: 02/24/25 01:00 Last Admin: 02/24/25 01:14 Dose: 1 mg Documented By: KAREN Hydromorphone HCl (Hydromorphone Inj 2 Mg/Ml Vial) 1 mg IVP X1 ONE Stop: 02/24/25 01:52 Last Admin: 02/24/25 02:06 Dose: 1 mg Documented By: SHIREEN Dexamethasone Sodium Phosphate (10 mg/ Sodium Chloride) 101 mls @ 101 mls/hr IV X1 ONE Stop: 02/24/25 01:00 Last Infusion: 02/24/25 02:26 Dose: Infused Documented By: Admin: 02/24/25 01:14 Dose: 101 mls/hr Documented By: KAREN Ketorolac Tromethamine (Ketorolac Inj 30 Mg/Ml Vial) 30 mg IVP X1 ONE Stop: 02/24/25 01:52 Last Admin: 02/24/25 02:05 Dose: 30 mg Documented By: SHIREEN See above Consultations Consultation(s) initiated? (list below): No Diagnosis Differential diagnosis back pain/injury: lumbar radiculopathy, sciatica, strain of lumbar region, pyelonephritis, thoracic back pain, AAA and discitis Most likely diagnosis given after review of the tests above:: None Admission Indicated Admission indicated?: not indicated Explain why admission is indicated or not indicated:: Patient does not meet admission criteria. Admission Request Was there a request for admission?: No Disposition Plan Disposition Plan: Discharge Discharge Attestation Discharge Attestation: The patient and all family members were given an opportunity to ask questions and understood the discharge instructions. Discharge instructions specifically effects, indications for sooner follow up or return to the emergency department, and the expected course of current diagnosis. Patient condition: Stable Discharge Plan Plan Patient Disposition: HOME (Self Care) Prescriptions/Referrals Prescriptions/Med Rec: New morphine 15 mg tablet 15 mg PO Q4H MDD 6 PRN (Reason: pain) Qty: 30 0RF No Action allopurinol 300 mg tablet 300 mg PO QDAY Татьяна-Toby 0.8 mg tablet 1 tab PO QDAY levothyroxine 25 mcg Tablet 37.5 mcg PO DAILY Humulin R Regular U-100 Insuln 100 unit/mL Solution 1 unit subcut PRN PRN (Reason: Hyperglycemia) Patient Comments: sliding scale sevelamer HCl [Renagel] 800 mg Tablet 800 mg PO TID Rx Instructions: must administer with a meal/food ergocalciferol (vitamin D2) [Vitamin D2] 1,250 mcg (50,000 unit) Capsule 1,250 mcg PO 2 X WEEKLY dexamethasone 4 mg tablet 4 mg PO Q8H Qty: 11 0RF hydromorphone 2 mg tablet 2 mg PO BID MDD 4 mg Qty: 4 0RF atorvastatin 80 mg tablet 80 mg PO .pm furosemide 40 mg tablet 20 mg PO QWEEK Patient Comments: per patient 0.5 tablet prn ondansetron 4 mg tablet,disintegrating 4 mg PO PRN PRN (Reason: nausea or vomitings) Qty: 30 0RF midodrine 10 mg Tablet 10 mg PO PRN PRN (Reason: if sbp<100) Qty: 30 0RF Patient Comments: per patient as needed for low blood pressure Rx Instructions: Take 1 tablet as needed if BP<100/60 insulin glargine [Basaglar KwikPen U-100 Insulin] 100 unit/mL (3 mL) Insulin Pen 20 unit SUBCUT QAM Qty: 15 2RF fluconazole 100 mg Tablet 200 mg PO QDAY Qty: 30 1RF amlodipine 5 mg Tablet 10 mg PO QDAY Qty: 30 1RF Referrals: Sarah Anderson FNP [Primary Care Provider] - In 1 week Problem List Clinical Impression: Bulging lumbar disc Patient/Caregiver Discharge Instructions Additional Instructions: Stop the Dilaudid tablets. Morphine as prescribed. Keep your dialysis appointments. Follow-up with neurosurgeon, Dr. Rahimafar. Print Language: Bulgarian Stand Alone Forms: Karishma Award Info., Patient Portal Info Letter
[2025-02-24] MEDS: DEXAMETHASONE INJ 10 MG in SODIUM CHLORIDE 0.9% 100 ML 101 MG IV (01:14)
[2025-02-24] MEDS: HYDROmorphone INJ 2 MG/ML VIAL 1 MG IVP ×2 (01:14→02:06)
[2025-02-24 01:27] LABS: Basophils # (Auto) 0.0 Thou/mm3 (0.0-0.2); Basophils % (Auto) 0 % (0-2.5); Eosinophils # (Auto) 0.0 Thou/mm3 (0.0-0.5); Eosinophils % (Auto) 0 % (0-10); Hematocrit 31.9 % (36.0-46.0); Hemoglobin 10.0 g/dL (12.0-16.0); Immature Granulocytes Auto 0.08 Thou/mm3 (0.00-0.00); Lymphocytes # (Auto) 0.9 Thou/mm3 (1.0-4.8); Lymphocytes % (Auto) 10 % (10-50); Mean Corpuscular HGB Conc 31.3 g/dl (31.0-37.0); Mean Corpuscular Hemoglobin 28.7 pg (25.0-35.0); Mean Corpuscular Volume 92 fL (80-100); Monocytes # (Auto) 0.4 Thou/mm3 (0.0-0.8); Monocytes % (Auto) 4 % (0-12); Neutrophils # (Auto) 7.9 Thou/mm3 (1.8-7.7); Neutrophils % (Auto) 85 % (37-80); Nucleated Red Blood Cell # 0.02 Thou/mm3 (0.00-0.00); Nucleated Red Blood Cell % 0 /100 WBC (0); Platelet Count 486 Thou/mm3 (140-440); RDW Standard Deviation 51.8 fL (36.4-46.3); Red Blood Count 3.48 Miln/mm3 (4.00-5.20); White Blood Count 9.3 Thou/mm3 (3.6-11.0)
[2025-02-24 01:43] LABS: Anion Gap 19 (7-16); BUN/Creatinine Ratio 10 Ratio (12-20); Blood Urea Nitrogen 56 mg/dL (9-23); Calcium 10.3 mg/dL (8.3-10.6); Carbon Dioxide 22.2 mMol/L (20.0-31.0); Chloride 90 mMol/L (98-107); Creatinine (Component) 5.7 mg/dL (0.6-1.3); Estimated Creatinine Clearance 12.5 mL/min (>60); Glucose 210 mg/dL (74-106); Osmolality,Calculated 284 (275-295); Potassium 4.4 mMol/L (3.4-5.1); Sodium 131 mMol/L (136-145); eGFR 8 See Note
[2025-02-24] MEDS: KETOROLAC INJ 30 MG/ML VIAL IVP (02:05)
[2025-02-24 02:07] VITALS: BP 176/108; PULSE 77; RESP 20; TEMP 36.4; O2SAT 96
[2025-02-24 02:42] VITALS: BP 155/98; PULSE 77; RESP 19; TEMP 36.5; O2SAT 98
[2025-02-24 04:43] VITALS: BP 155/99; PULSE 76; RESP 19; O2SAT 99
[2025-02-24 05:19] VITALS: BP 150/97; PULSE 84; RESP 19; TEMP 37.1; O2SAT 97
== END 2025-02-24 05:55 | disposition home or self-care (01) ==
PROVIDERS: Emergency Provider Emergency Medicine; PCP Registered Nurse Community Health
DX: M51.360 Other intervertebral disc degeneration, lumbar region with discogenic back pain only (principal); I50.9 Heart failure, unspecified; N18.6 End stage renal disease; I13.2 Hypertensive heart and chronic kidney disease with heart failure and with stage 5 chronic kidney disease, or end stage renal disease; E11.22 Type 2 diabetes mellitus with diabetic chronic kidney disease; E78.00 Pure hypercholesterolemia, unspecified; E03.9 Hypothyroidism, unspecified; Z99.2 Dependence on renal dialysis; Z88.5 Allergy status to narcotic agent; Z88.0 Allergy status to penicillin; Z79.4 Long term (current) use of insulin; Z79.84 Long term (current) use of oral hypoglycemic drugs; Z79.890 Hormone replacement therapy; Z79.899 Other long term (current) drug therapy
CPT/HCPCS: 36415; 80048; 85025; 96374; 96375; 96376; 99283; J1100; J1171; J1885; J7050

== ENCOUNTER 2025-03-02 20:44 | Emergency (ER) | payer MEDICARE, MEDICAID, SELFPAY ==
--- NOTE | 2025-03-02 20:48 | EDRME_ITS ---
Rapid Medical Screening [facility]am [facility] Arrival date/time: 03/02/25 20:44 [facility] Narrative: Patient is a 54-year-old female who is brought in today by EMS. She has a history of hypertension and end-stage renal disease. She does dialysis every Wednesday, and Wednesday. She states she has not missed any runs of dialysis and her blood sugar is well-controlled. She is here primarily for low back pain rating down her left leg. She states this has been going on for 4 weeks. She denies any trauma. She has no change in bowel movements or urination. Patient is uncomfortable but nontoxic-appearing. Workup was initiated. Interventions have been requested. Medical screening exam is complete.
[2025-03-02] MEDS: DIAZEPAM 5 MG TABLET PO (21:06)
[2025-03-02 21:07] VITALS: BP 113/74; PULSE 106; RESP 17; TEMP 37.6; O2SAT 97
[2025-03-02 21:11] VITALS: PULSE 125; RESP 18; O2SAT 98
[2025-03-02 22:04] LABS: Lactate (Lactic Acid) 4.6 mMol/L (0.4-2.0)
[2025-03-02 22:17] LABS: Basophils # (Auto) 0.0 Thou/mm3 (0.0-0.2); Basophils % (Auto) 0 % (0-2.5); Eosinophils # (Auto) 0.0 Thou/mm3 (0.0-0.5); Eosinophils % (Auto) 0 % (0-10); Hematocrit 33.8 % (36.0-46.0); Hemoglobin 10.4 g/dL (12.0-16.0); Immature Granulocytes Auto 0.53 Thou/mm3 (0.00-0.00); Lymphocytes # (Auto) 1.0 Thou/mm3 (1.0-4.8); Lymphocytes % (Auto) 4 % (10-50); Mean Corpuscular HGB Conc 30.8 g/dl (31.0-37.0); Mean Corpuscular Hemoglobin 29.3 pg (25.0-35.0); Mean Corpuscular Volume 95 fL (80-100); Monocytes # (Auto) 1.4 Thou/mm3 (0.0-0.8); Monocytes % (Auto) 5 % (0-12); Neutrophils # (Auto) 24.4 Thou/mm3 (1.8-7.7); Neutrophils % (Auto) 90 % (37-80); Nucleated Red Blood Cell # 0.00 Thou/mm3 (0.00-0.00); Nucleated Red Blood Cell % 0 /100 WBC (0); Platelet Count 252 Thou/mm3 (140-440); RDW Standard Deviation 61.2 fL (36.4-46.3); Red Blood Count 3.55 Miln/mm3 (4.00-5.20); White Blood Count 27.4 Thou/mm3 (3.6-11.0)
[2025-03-02 23:16] LABS: Alanine Aminotransferase 13 U/L (10-49); Albumin, Serum 4.4 gm/dL (3.5-5.0); Albumin/Globulin Ratio 1.2 (1.2-2.2); Alkaline Phosphatase 98 U/L (46-116); Anion Gap 20 (7-16); Aspartate Amino Transferase 16 U/L (0-34); BUN/Creatinine Ratio 7 Ratio (12-20); Bilirubin,Total 0.3 mg/dL (0.3-1.2); Blood Urea Nitrogen 41 mg/dL (9-23); Calcium 9.7 mg/dL (8.3-10.6); Calcium (Corrected) 9.7 mg/dL (8.5-10.1); Carbon Dioxide 22.8 mMol/L (20.0-31.0); Chloride 90 mMol/L (98-107); Creatinine (Component) 5.5 mg/dL (0.6-1.3); Globulin 3.8 gm/dL (2.3-3.5); Glucose 204 mg/dL (74-106); Lipase 21 U/L (12-53); Osmolality,Calculated 282 (275-295); Potassium 5.4 mMol/L (3.4-5.1); Sodium 133 mMol/L (136-145); Total Protein 8.2 gm/dL (5.7-8.2); eGFR 9 See Note
[2025-03-03 00:55] LABS: Reflex Lactate? Y
[2025-03-03 01:12] VITALS: BP 107/63; PULSE 82; RESP 16; TEMP 36.7; O2SAT 98
[2025-03-03 01:40] LABS: Lactic Acid, 3 HR 2.5 mMol/L (0.4-2.0)
--- NOTE | 2025-03-03 02:19 | PD.EDEXREM ---
ED Extremity Problem RME/HPI General Chief complaint: Extremity Injury, Lower Stated complaint: LEG PAIN Arrival date/time: 03/02/25 20:44 RME / HPI RME / HPI Narrative: Patient is a 54-year-old female who is brought in today by EMS. She has a history of hypertension and end-stage renal disease. She does dialysis every Wednesday, and Wednesday. She states she has not missed any runs of dialysis and her blood sugar is well-controlled. She is here primarily for low back pain rating down her left leg. She states this has been going on for 4 weeks. She denies any trauma. She has no change in bowel movements or urination. Patient is uncomfortable but nontoxic-appearing. Workup was initiated. Interventions have been requested. Medical screening exam is complete. DR. RIVERA MAIN ED EVALUATION: 54 y/o female with Hx of Dialysis Treatment presents to ED BIBA c/o LLE pain that radiates down from her buttock to her toes. Patient is a dialysis patient who very rarely produces urine. Denies cough, abdominal pain, and respiratory difficulty. She manages pain at home with Ibuprofen and Tylenol. No other concerns or complaints expressed at this time. Related Data Home Medications ?Medication ?Instructions ?Recorded ?Confirmed insulin regular human 100 unit/mL 1 unit subcut PRN PRN Hyperglycemia 04/17/20 12/19/24 injection solution (Humulin R Regular U-100 Insulin) levothyroxine 25 mcg tablet 37.5 mcg PO DAILY 04/17/20 12/19/24 ergocalciferol (vitamin D2) 1,250 1,250 mcg PO 2 X WEEKLY 08/25/23 12/19/24 mcg (50,000 unit) capsule (Vitamin D2) sevelamer HCl 800 mg tablet 800 mg PO TID 08/25/23 12/19/24 (Renagel) allopurinol 300 mg tablet 300 mg PO QDAY 03/16/24 12/19/24 vitamin B complex-vitamin C-folic 1 tab PO QDAY 03/16/24 12/19/24 acid 0.8 mg tablet (Татьяна-Toby) atorvastatin 80 mg tablet 80 mg PO .pm 12/19/24 12/19/24 furosemide 40 mg tablet 20 mg PO QWEEK 12/19/24 12/19/24 Previous Rx's ?Medication ?Instructions ?Recorded amlodipine 5 mg tablet 10 mg (2 x 5 mg) PO QDAY #30 tabs 12/21/24 fluconazole 100 mg tablet 200 mg (2 x 100 mg) PO QDAY #30 12/21/24 tabs insulin glargine 100 unit/mL (3 20 unit (0.2 mL) subcut QAM #15 mL 12/21/24 mL) subcutaneous pen (Basaglar KwikPen U-100 Insulin) midodrine 10 mg tablet 10 mg PO PRN PRN if sbp<100 #30 12/21/24 tabs ondansetron 4 mg disintegrating 4 mg PO PRN PRN nausea or 12/21/24 tablet vomitings #30 tabs dexamethasone 4 mg tablet 4 mg PO Q8H #11 tabs 02/21/25 hydromorphone 2 mg tablet 2 mg PO BID Pain moderate to 02/21/25 severe #4 tabs morphine 15 mg immediate release 15 mg PO Q4H PRN pain #30 tabs 02/24/25 tablet Allergies Allergy/AdvReac Type Severity Reaction Status Date / Time codeine Allergy Severe Swelling Verified 03/02/25 21:11 hydrocodone Allergy Severe Swelling Verified 03/02/25 21:11 Penicillins Allergy Severe Difficulty Verified 03/02/25 21:11 Breathing sulfamethoxazole (From Allergy Severe Swelling Verified 03/02/25 21:11 Bactrim) of Lip/Tongue/Throat trimethoprim (From Bactrim) Allergy Severe Swelling Verified 03/02/25 21:11 of Lip/Tongue/Throat Review of Systems Review of Systems Systems Reviewed: All systems reviewed, normal except as documented Past Medical History Past Medical History CARDIAC: Positive Cardiac Disorders, Hypercholesterolemia, Congestive Heart Failure, Hypertension and Hypotension GASTROINTESTINAL: Positive Gastroesophageal Reflux Disease and Obesity GENITOURINARY: Positive Genitourinary Disorders, Renal Disease and Dialysis REPRODUCTIVE: Positive Previous Pregnancies ENT: Positive Cataracts and Deafness ENDOCRINE: Positive Endocrine Disorders, Diabetes Mellitus Type 2 and Hypothyroidism HEMATOLOGIC: Positive Blood Disorders and Anemia OTHER HISTORY: Positive Hospitalization, Shingles, Falls, Blood Transfusions and Chicken Pox Family History FAMILY HISTORY: Positive Family Respiratory Disorders, Family Cardiac Disorders and Family Cancer Surgical History SURGICAL: Positive Oral Surgery and Section ED Exam Narrative Physical exam: Generally patient is alert oriented and in minimal distress secondary to her chronic sciatica. Heart regular rate and rhythm lungs clear to auscultation and equal bilaterally abdomen soft nontender nondistended, skin no cellulitis, musculoskeletal exam shows tenderness over the left buttock musculature. And neurovascularly the left lower extremity is intact. Course Quality Measures none Orders Category Date Time Status CBC Stat Lab 03/02/25 21:47 Completed CMP [Comprehensive Metabolic Panel] Stat Lab 03/02/25 22:38 Completed Lactic Acid [Lactate (Lactic Acid)] Stat Lab 03/02/25 21:47 Completed Lactic Acid, 3 HR Stat Lab 03/03/25 01:37 Completed Lipase Stat Lab 03/02/25 22:38 Completed UA, C/S IF [Urinalysis, C/S if Indicated] Stat Lab 03/02/25 20:50 Ordered Diazepam [Valium] Med 03/02/25 20:50 Discontinued 5 mg PO X1 ONE Morphine Inj Med 03/03/25 02:18 Pending 4 mg IVP X1 ONE Vital Signs Vital signs: Vital Signs Temperature 99.7 F 03/02/25 21:07 Pulse Rate 106 H 03/02/25 21:07 Respiratory Rate 17 03/02/25 21:07 Blood Pressure 113/74 03/02/25 21:07 Pulse Oximetry (%) 97 03/02/25 21:07 Oxygen Delivery Method Room Air 03/02/25 21:07 Oxygen Flow Rate 4 03/02/25 21:07 Extremity Problem MDM Narrative MDM Narrative:: Scribe Attestation: IAni am scribing for and in the presence of Dr. Rivera. Provider Notation: Although this document has been carefully reviewed, there may still be some phonetic and other typographical errors. These errors are purely grammatical due to imperfections in the software program and should not be construed in any way to? compromise the substance of the patient's medical care during this visit. Patient has no fever. Patient has a leukocytosis of 27,000 however is just finishing p.o. Decadron. Patient has no evidence for infection. I believe the leukocytosis to be due to the steroid. Original lactic acid level was 4.6 but repeat was 2.5. Patient has no sign of infection. The reason why the patient presented here to the emergency room is only for pain control for her left sciatica. Patient received morphine 4 mg IV. She was counseled on the need to be referred by primary care for chronic pain management. Patient data External records reviewed:: [facility] previous records (Reviewed prior ED records from 02/24/25. Patient was seen for Bulging lumbar disc.) and EMS form Clinical information provided by:: patient and EMS Social determinants that could affect healthcare access:: none Patient has the following chronic illnesses:: Hypercholesterolemia, Congestive Heart Failure, Hypertension, Hypotension, Reflux Disease, Obesity, Renal Disease, Dialysis, Cataracts, Deafness, Diabetes Mellitus Type 2, Hypothyroidism, Anemia How is presenting disease/condition affected by chronic disease/condition?: exacerbated by Evaluation data The following diagnostics were reviewed and interpreted by me:: lab results Lab and/or radiology exams considered but not ordered:: None Interpretation Summary: See MDM above. Medications / Prescriptions Medications or Prescriptions considered but not ordered:: None Medication administrations:: Medication Administration History Morphine Sulfate (Morphine Sulf Inj 10 Mg/Ml Vial) 4 mg IVP X1 ONE Stop: 03/03/25 02:19 Discontinued Medications Diazepam (Diazepam 5 Mg Tablet) 5 mg PO X1 ONE Stop: 03/02/25 20:51 Last Admin: 03/02/25 21:06 Dose: 5 mg Documented By: CB See above if any. Consultations Consultation(s) initiated? (list below): No Diagnosis Extremity Problem Differential Diagnosis: gout, cellulitis, superficial thrombophlebitis, lower extremity edema, deep vein thrombosis of lower extremity and other (Sciatica pain, Plantar fasciitis) Most likely diagnosis given after review of the tests above:: None Admission Indicated Admission indicated?: not indicated Explain why admission is indicated or not indicated:: Patient does not meet admission crieria. Admission Request Was there a request for admission?: No Disposition Plan Disposition Plan: Discharge Discharge Attestation Discharge Attestation: The patient and all family members were given an opportunity to ask questions and understood the discharge instructions. Discharge instructions specifically effects, indications for sooner follow up or return to the emergency department, and the expected course of current diagnosis. Patient condition: Stable Discharge Plan Plan Patient Disposition: HOME (Self Care) Prescriptions/Referrals Prescriptions/Med Rec: No Action allopurinol 300 mg tablet 300 mg PO QDAY Татьяна-Toby 0.8 mg tablet 1 tab PO QDAY levothyroxine 25 mcg Tablet 37.5 mcg PO DAILY Humulin R Regular U-100 Insuln 100 unit/mL Solution 1 unit subcut PRN PRN (Reason: Hyperglycemia) Patient Comments: sliding scale sevelamer HCl [Renagel] 800 mg Tablet 800 mg PO TID Rx Instructions: must administer with a meal/food ergocalciferol (vitamin D2) [Vitamin D2] 1,250 mcg (50,000 unit) Capsule 1,250 mcg PO 2 X WEEKLY dexamethasone 4 mg tablet 4 mg PO Q8H Qty: 11 0RF hydromorphone 2 mg tablet 2 mg PO BID MDD 4 mg Qty: 4 0RF atorvastatin 80 mg tablet 80 mg PO .pm furosemide 40 mg tablet 20 mg PO QWEEK Patient Comments: per patient 0.5 tablet prn ondansetron 4 mg tablet,disintegrating 4 mg PO PRN PRN (Reason: nausea or vomitings) Qty: 30 0RF midodrine 10 mg Tablet 10 mg PO PRN PRN (Reason: if sbp<100) Qty: 30 0RF Patient Comments: per patient as needed for low blood pressure Rx Instructions: Take 1 tablet as needed if BP<100/60 insulin glargine [Basaglar KwikPen U-100 Insulin] 100 unit/mL (3 mL) Insulin Pen 20 unit SUBCUT QAM Qty: 15 2RF fluconazole 100 mg Tablet 200 mg PO QDAY Qty: 30 1RF amlodipine 5 mg Tablet 10 mg PO QDAY Qty: 30 1RF morphine 15 mg tablet 15 mg PO Q4H MDD 6 PRN (Reason: pain) Qty: 30 0RF Referrals: Sarah Anderson FNP [Primary Care Provider] - In 1 week Problem List Clinical Impression: Sciatica Patient/Caregiver Discharge Instructions Education Materials: ED Sciatica Additional Instructions: You must follow-up with your primary care physician 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 Keep your dialysis appointments. Print Language: American Stand Alone Forms: Karishma Award Info., Patient Portal Info Letter
[2025-03-03 03:35] VITALS: BP 109/70; PULSE 72; RESP 14; TEMP 36.4; O2SAT 97
[2025-03-03] MEDS: MORPHINE SULF INJ 10 MG/ML VIAL 4 MG IVP (03:38)
== END 2025-03-03 03:42 | disposition home or self-care (01) ==
PROVIDERS: Physician Assistant Medical; Emergency Provider Emergency Medicine; PCP Registered Nurse Community Health
DX: M54.42 Lumbago with sciatica, left side (principal); I12.0 Hypertensive chronic kidney disease with stage 5 chronic kidney disease or end stage renal disease; E11.22 Type 2 diabetes mellitus with diabetic chronic kidney disease; N18.6 End stage renal disease; Z79.4 Long term (current) use of insulin; Z99.2 Dependence on renal dialysis; D72.829 Elevated white blood cell count, unspecified
CPT/HCPCS: 36415; 80053; 81001; 83605; 83690; 85025; 96374; 99283; J2270; A9270

== ENCOUNTER → 2025-04-16 | Outpatient (CLI) | payer MEDICARE, MEDICAID, SELFPAY ==
[2025-04-16 16:32] LABS: Basophils # (Auto) 0.1 Thou/mm3 (0.0-0.2); Basophils % (Auto) 1 % (0-2.5); Eosinophils # (Auto) 0.2 Thou/mm3 (0.0-0.5); Eosinophils % (Auto) 2 % (0-10); Hematocrit 29.8 % (36.0-46.0); Hemoglobin 9.3 g/dL (12.0-16.0); Immature Granulocytes Auto 0.03 Thou/mm3 (0.00-0.00); Lymphocytes # (Auto) 1.8 Thou/mm3 (1.0-4.8); Lymphocytes % (Auto) 22 % (10-50); Mean Corpuscular HGB Conc 31.2 g/dl (31.0-37.0); Mean Corpuscular Hemoglobin 28.4 pg (25.0-35.0); Mean Corpuscular Volume 91 fL (80-100); Monocytes # (Auto) 0.7 Thou/mm3 (0.0-0.8); Monocytes % (Auto) 9 % (0-12); Neutrophils # (Auto) 5.4 Thou/mm3 (1.8-7.7); Neutrophils % (Auto) 66 % (37-80); Nucleated Red Blood Cell # 0.00 Thou/mm3 (0.00-0.00); Nucleated Red Blood Cell % 0 /100 WBC (0); Platelet Count 413 Thou/mm3 (140-440); RDW Standard Deviation 58.4 fL (36.4-46.3); Red Blood Count 3.28 Miln/mm3 (4.00-5.20); White Blood Count 8.2 Thou/mm3 (3.6-11.0)
[2025-04-16 18:20] LABS: Sed Rate (ESR) 114 mm/hr (0-30)
== END | disposition home or self-care (01) ==
LOC: COPL 15:55
PROVIDERS: PCP Registered Nurse Community Health; Referring Provider Specialist; Visit Provider Specialist
DX: M86.9 Osteomyelitis, unspecified (principal)
CPT/HCPCS: 36415; 85025; 85652

== ENCOUNTER 2025-04-26 12:37 | Emergency (ER) | payer MEDICARE, MEDICAID, SELFPAY ==
[2025-04-26 12:40] VITALS: PULSE 88; O2SAT 96; BMI 31.8
[2025-04-26 12:45] VITALS: BP 129/66; PULSE 99; RESP 20; TEMP 38.5; O2SAT 87
--- NOTE | 2025-04-26 12:56 | PC.NURSE ---
Patient presents to ED from [facility], for not acting appropriately, feeling weak and blood sugar at 416. Patient alert and oriented, non ambulatory due to infection to back. Patient call light is within reach.
--- NOTE | 2025-04-26 13:44 | EKG_ITS ---
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
--- NOTE | 2025-04-26 13:44 | XR_ITS ---
EXAMINATION: AP chest single view TECHNIQUE: AP portable upright chest single view Date and time: April 26, 2025, 1403 hours, comparison January 26, 2025 INDICATIONS: Coughing beginning 3 days ago. FINDINGS: Significant pneumonia retrocardiac left base Mild prominence left ventricle Moderate osteopenia IMPRESSION: Significant pneumonia left base
[2025-04-26 14:04] VITALS: PULSE 85
[2025-04-26 14:18] LABS: Basophils # (Auto) 0.0 Thou/mm3 (0.0-0.2); Basophils % (Auto) 1 % (0-2.5); Eosinophils # (Auto) 0.1 Thou/mm3 (0.0-0.5); Eosinophils % (Auto) 1 % (0-10); Hematocrit 27.3 % (36.0-46.0); Immature Granulocytes Auto 0.04 Thou/mm3 (0.00-0.00); Lymphocytes # (Auto) 0.9 Thou/mm3 (1.0-4.8); Lymphocytes % (Auto) 12 % (10-50); Mean Corpuscular HGB Conc 30.4 g/dl (31.0-37.0); Mean Corpuscular Hemoglobin 27.9 pg (25.0-35.0); Mean Corpuscular Volume 92 fL (80-100); Monocytes # (Auto) 0.7 Thou/mm3 (0.0-0.8); Monocytes % (Auto) 9 % (0-12); Neutrophils # (Auto) 5.6 Thou/mm3 (1.8-7.7); Neutrophils % (Auto) 77 % (37-80); Nucleated Red Blood Cell # 0.00 Thou/mm3 (0.00-0.00); Nucleated Red Blood Cell % 0 /100 WBC (0); Platelet Count 330 Thou/mm3 (140-440); RDW Standard Deviation 58.3 fL (36.4-46.3); Red Blood Count 2.97 Miln/mm3 (4.00-5.20); White Blood Count 7.3 Thou/mm3 (3.6-11.0)
--- NOTE | 2025-04-26 14:22 | PD.EDADULT ---
ED General RME/HPI General Chief complaint: General Adult/Misc Complain Stated complaint: HYPERGLYCEMIC Time Seen by Provider: 04/26/25 13:20 Arrival date/time: 04/26/25 12:37 Limitations: no limitations RME / HPI RME / HPI narrative: 54 year old female with history of HFpEF (50-55% 12/2019), ESRD on T//Wed, diabetes, hypothyroidism presents to the ED BIBA from [facility] for evaluation of elevated blood sugar and global weakness today. Per medics, NE staff reported glucose > 500 and administered 13 units of Humulin. State repeat glucose was 416. Additionally complains of a frontal headache and increased thirst. Patient mentioned she did complete her dialysis treatment today though felt more tired than usual, prompting ED visit. 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 Underwent 1 week of inpatient IV abx and discharged home with 400mg Flucanazole QDAY. Related Data Home Medications ?Medication ?Instructions ?Recorded ?Confirmed insulin regular human 100 unit/mL 1 unit subcut PRN PRN Hyperglycemia 04/17/20 12/19/24 injection solution (Humulin R Regular U-100 Insulin) levothyroxine 25 mcg tablet 37.5 mcg PO DAILY 04/17/20 12/19/24 ergocalciferol (vitamin D2) 1,250 1,250 mcg PO 2 X WEEKLY 08/25/23 12/19/24 mcg (50,000 unit) capsule (Vitamin D2) sevelamer HCl 800 mg tablet 800 mg PO TID 08/25/23 12/19/24 (Renagel) allopurinol 300 mg tablet 300 mg PO QDAY 03/16/24 12/19/24 vitamin B complex-vitamin C-folic 1 tab PO QDAY 03/16/24 12/19/24 acid 0.8 mg tablet (Татьяна-Toby) atorvastatin 80 mg tablet 80 mg PO .pm 12/19/24 12/19/24 furosemide 40 mg tablet 20 mg PO QWEEK 12/19/24 12/19/24 Previous Rx's ?Medication ?Instructions ?Recorded amlodipine 5 mg tablet 10 mg (2 x 5 mg) PO QDAY #30 tabs 12/21/24 fluconazole 100 mg tablet 200 mg (2 x 100 mg) PO QDAY #30 12/21/24 tabs insulin glargine 100 unit/mL (3 20 unit (0.2 mL) subcut QAM #15 mL 12/21/24 mL) subcutaneous pen (Basaglar KwikPen U-100 Insulin) midodrine 10 mg tablet 10 mg PO PRN PRN if sbp<100 #30 12/21/24 tabs ondansetron 4 mg disintegrating 4 mg PO PRN PRN nausea or 12/21/24 tablet vomitings #30 tabs dexamethasone 4 mg tablet 4 mg PO Q8H #11 tabs 02/21/25 hydromorphone 2 mg tablet 2 mg PO BID Pain moderate to 02/21/25 severe #4 tabs morphine 15 mg immediate release 15 mg PO Q4H PRN pain #30 tabs 02/24/25 tablet Allergies Allergy/AdvReac Type Severity Reaction Status Date / Time codeine Allergy Severe Swelling Verified 04/26/25 12:46 hydrocodone Allergy Severe Swelling Verified 04/26/25 12:46 Penicillins Allergy Severe Difficulty Verified 04/26/25 12:46 Breathing sulfamethoxazole (From Allergy Severe Swelling Verified 04/26/25 12:46 Bactrim) of Lip/Tongue/Throat trimethoprim (From Bactrim) Allergy Severe Swelling Verified 04/26/25 12:46 of Lip/Tongue/Throat Review of Systems Review of Systems Systems Reviewed: All systems reviewed, normal except as documented Past Medical History Past Medical History CARDIAC: Positive Cardiac Disorders, Hypercholesterolemia, Congestive Heart Failure, Edema, Hypertension and Hypotension RESPIRATORY: Positive Respiratory Disorders (+ VALLEY FEVER) GASTROINTESTINAL: Positive Gastroesophageal Reflux Disease and Obesity GENITOURINARY: Positive Genitourinary Disorders, Renal Disease and Dialysis (HD TTS) REPRODUCTIVE: Positive Previous Pregnancies ENT: Positive Cataracts and Deafness ENDOCRINE: Positive Endocrine Disorders, Diabetes Mellitus Type 2 and Hypothyroidism HEMATOLOGIC: Positive Blood Disorders and Anemia OTHER HISTORY: Positive Hospitalization, Shingles, Falls, Blood Transfusions, MRSA and Chicken Pox Family History FAMILY HISTORY: Positive Family Respiratory Disorders, Family Cardiac Disorders and Family Cancer Surgical History SURGICAL: Positive Oral Surgery and Section Social History SMOKING STATUS: Never smoker SECOND HAND EXPOSURE: No SUBSTANCE USE: does not use ED Exam General Limitations: Present no limitations General appearance: Present alert and in no apparent distress Head Head exam: Present atraumatic, normocephalic and normal inspection Eye Eye exam: Present normal appearance, PERRL and EOMI ENT ENT exam: Present normal exam, normal oropharynx and mucous membranes moist Neck Neck exam: Present normal inspection, full ROM and trachea midline Chest Chest inspection: Present normal inspection and symmetric chest wall rise Respiratory Respiratory exam: Present normal lung sounds bilaterally Cardiovascular Cardiovascular exam: Present regular rate, normal rhythm and normal heart sounds Abdominal Exam Abdominal exam: Present soft, normal bowel sounds and other (G-tube noted ) Extremities Exam Extremities exam: Present normal inspection and full ROM Back Exam Back exam: Present normal inspection and full ROM Neurological Exam Neurological exam: Present alert, oriented X3 and CN II-XII intact Psychiatric Psychiatric exam: Present normal affect and normal mood Skin Skin exam: Present warm, dry, intact and normal color Course Quality Measures none Orders Category Date Time Status Refrigerator Glazier NOW Care 04/26/25 13:44 Active Continuous Pulse Oximetry NOW Care 04/26/25 13:44 Completed EKG (ED ONLY) *Do not use* NOW Care 04/26/25 13:44 Completed Glucose [Bedside Blood Glucose] NOW Care 04/26/25 14:49 Active Insert IV NOW Care 04/26/25 13:44 Completed EKG (ED Only) Stat Exams 04/26/25 13:44 Draft XR chest 1V portable Stat Exams 04/26/25 13:44 Completed CBC Stat Lab 04/26/25 14:00 Completed Comprehensive Metabolic Panel Stat Lab 04/26/25 14:00 Completed Partial Thromboplastin Time Stat Lab 04/26/25 14:00 Completed Prothrombin Time with INR Stat Lab 04/26/25 14:00 Completed Troponin I Stat Lab 04/26/25 14:00 Completed Insulin Regular Med 04/26/25 15:37 Discontinued 6 unit SC X1 ONE Insulin Regular Med 04/26/25 13:44 Discontinued 8 unit SC X1 ONE Sodium Chloride 0.9% 1000 ml [Ns] 1,000 ml Med 04/26/25 13:43 Discontinued IV 999 mls/hr Vital Signs Vital signs: Vital Signs Temperature 101.3 F H 04/26/25 12:45 Pulse Rate 99 04/26/25 12:45 Respiratory Rate 20 04/26/25 12:45 Blood Pressure 129/66 04/26/25 12:45 Pulse Oximetry (%) 87 L 04/26/25 12:45 Oxygen Delivery Method Room Air 04/26/25 12:45 Discharge Plan Plan Patient Disposition: Xfer Skilled Nsg Fac (SNF) Discharge Disposition comment: txfer back to [facility] Prescriptions/Referrals Prescriptions/Med Rec: No Action allopurinol 300 mg tablet 300 mg PO QDAY Татьяна-Toby 0.8 mg tablet 1 tab PO QDAY levothyroxine 25 mcg Tablet 37.5 mcg PO DAILY Humulin R Regular U-100 Insuln 100 unit/mL Solution 1 unit subcut PRN PRN (Reason: Hyperglycemia) Patient Comments: sliding scale sevelamer HCl [Renagel] 800 mg Tablet 800 mg PO TID Rx Instructions: must administer with a meal/food ergocalciferol (vitamin D2) [Vitamin D2] 1,250 mcg (50,000 unit) Capsule 1,250 mcg PO 2 X WEEKLY dexamethasone 4 mg tablet 4 mg PO Q8H Qty: 11 0RF hydromorphone 2 mg tablet 2 mg PO BID MDD 4 mg Qty: 4 0RF atorvastatin 80 mg tablet 80 mg PO .pm furosemide 40 mg tablet 20 mg PO QWEEK Patient Comments: per patient 0.5 tablet prn ondansetron 4 mg tablet,disintegrating 4 mg PO PRN PRN (Reason: nausea or vomitings) Qty: 30 0RF midodrine 10 mg Tablet 10 mg PO PRN PRN (Reason: if sbp<100) Qty: 30 0RF Patient Comments: per patient as needed for low blood pressure Rx Instructions: Take 1 tablet as needed if BP<100/60 insulin glargine [Basaglar KwikPen U-100 Insulin] 100 unit/mL (3 mL) Insulin Pen 20 unit SUBCUT QAM Qty: 15 2RF fluconazole 100 mg Tablet 200 mg PO QDAY Qty: 30 1RF amlodipine 5 mg Tablet 10 mg PO QDAY Qty: 30 1RF morphine 15 mg tablet 15 mg PO Q4H MDD 6 PRN (Reason: pain) Qty: 30 0RF Referrals: Sarah Anderson FNP [Primary Care Provider] - In 1 week Problem List Clinical Impression: Poorly controlled diabetes mellitus, Weakness Patient/Caregiver Discharge Instructions Education Materials: ED Weakness (Uncertain Cause), ED Diet: Diabetes Additional Instructions: Do acuchecks AC and HS and call PMD for sliding scale insulin orders. You can return to the emergency department sooner if symptoms worsen or if you notice any new, concerning issues. Print Language: Faroese Stand Alone Forms: Karishma Award Info., Patient Portal Info Letter MDM Narrative MDM hospital course (for use when minimal MDM required): I, Donna Singh, am scribing for and in the presence of Dr. Reynaga. I reviewed labs and the blood glucose has improved, fingerstick 367. Patient will be discharged with instructions to have acuchecks AC and HS in addition to contacting PCP for sliding scale glucose orders. Clinical Information Provided by: patient Medical Records reviewed [facility] Meds/Rx considered, not ordered None Labs/Rad/Tests considered, not ordered None Chronic Illness/Social Conditions which may negatively complicate care or outcome(s)-explain: snf/debilitated EKG Interpretation EKG #1: EKG Interpretation: EKG @ 14:14. NSR, rate 84, no STEMI. Labs Labs: see narrative above Imaging Imaging Interpretation(s): Ordering Physician: Camden Reynaga MD Date of Service: 04/26/25 Procedure(s): XR chest 1V portable Accession Number(s): [id number] cc: Camden Reynaga MD; Sarah Anderson COOLER ROOM WORKER; Laron Valerio MD~ EXAMINATION: AP chest single view TECHNIQUE: AP portable upright chest single view Date and time: April 26, 2025, 1403 hours, comparison January 26, 2025 INDICATIONS: Coughing beginning 3 days ago. FINDINGS: Significant pneumonia retrocardiac left base Mild prominence left ventricle Moderate osteopenia IMPRESSION: Significant pneumonia left base Dictated By: Laron Valerio MD Signed By: <Electronically signed by Laron Valerio MD in OV> 04/26/25 1515 Medication Administration(s) Medication Administration History Discontinued Medications Sodium Chloride (Ns) 1,000 mls @ 999 mls/hr IV .Q1H1M ONE Stop: 04/26/25 14:43 Last Admin: 04/26/25 14:36 Dose: 999 mls/hr Documented By: MARY Insulin Human Regular (Insulin Hum Regular 1 Unit/0.01 Ml (Per Unit)) 8 unit SC X1 ONE Stop: 04/26/25 13:45 Last Admin: 04/26/25 14:36 Dose: 8 unit Documented By: MARY Co-signed By: BY Insulin Human Regular (Insulin Hum Regular 1 Unit/0.01 Ml (Per Unit)) 6 unit SC X1 ONE Stop: 04/26/25 15:38 See above Diagnosis Diagnoses ruled out and/or further discussions: Poorly controlled diabetes Weakness
[2025-04-26 14:24] LABS: Hemoglobin 8.3 g/dL (12.0-16.0)
[2025-04-26 14:31] LABS: INR 1.0 (0.9-1.3); Partial Thromboplastin Time 26.3 Seconds (22.0-36.0); Prothrombin Time 10.4 Seconds (9.0-12.2)
[2025-04-26] MEDS: SODIUM CHLORIDE 0.9% 1000 ML 1,000 ML 999 ML IV (14:36)
[2025-04-26] MEDS: INSULIN HUM REGULAR 1 UNIT/0.01 ML (PER UNIT) 8 UNIT SC (14:36)
[2025-04-26 14:40] VITALS: BP 123/70; PULSE 80; RESP 18; TEMP 37.1; O2SAT 96
[2025-04-26 14:41] LABS: Alanine Aminotransferase 20 U/L (10-49); Albumin, Serum 4.1 gm/dL (3.5-5.0); Albumin/Globulin Ratio 1.3 (1.2-2.2); Alkaline Phosphatase 120 U/L (46-116); Anion Gap 13 (7-16); Aspartate Amino Transferase 28 U/L (0-34); BUN/Creatinine Ratio 10 Ratio (12-20); Bilirubin,Total 0.2 mg/dL (0.3-1.2); Blood Urea Nitrogen 28 mg/dL (9-23); Calcium 9.8 mg/dL (8.3-10.6); Calcium (Corrected) 9.8 mg/dL (8.5-10.1); Carbon Dioxide 30.7 mMol/L (20.0-31.0); Chloride 91 mMol/L (98-107); Creatinine (Component) 2.7 mg/dL (0.6-1.3); Estimated Creatinine Clearance 25.6 mL/min (>60); Globulin 3.1 gm/dL (2.3-3.5); Osmolality,Calculated 292 (275-295); Potassium 4.2 mMol/L (3.4-5.1); Sodium 135 mMol/L (136-145); Total Protein 7.2 gm/dL (5.7-8.2); Troponin I < 0.020 ng/mL (0.0-0.045); eGFR 21 See Note
[2025-04-26 14:48] LABS: Glucose 413 mg/dL (74-106)
[2025-04-26 16:52] VITALS: BP 134/90; PULSE 71; RESP 15; TEMP 37.2; O2SAT 96
--- NOTE | 2025-04-26 17:56 | PC.CC ---
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
[2025-04-26] MEDS: INSULIN HUM REGULAR 1 UNIT/0.01 ML (PER UNIT) 6 UNIT SC (18:08)
[2025-04-26 18:22] VITALS: BP 144/85; PULSE 67; RESP 17; TEMP 37.1; O2SAT 98
--- NOTE | 2025-04-26 18:23 | PC.NURSE ---
REPORT GIVEN TO FINN AT [facility] INFORMED OF VITALS UPDATED ON PLAN OF CARE AND DISCHARGE/RETURN TO FACILITY, ETA OF 1900. FINN AGREES WITH PLAN TO RETURN.
== END 2025-04-26 19:01 | disposition skilled nursing facility (03) ==
PROVIDERS: Emergency Provider Family Medicine; PCP Registered Nurse Community Health
DX: E11.22 Type 2 diabetes mellitus with diabetic chronic kidney disease (principal); E11.65 Type 2 diabetes mellitus with hyperglycemia
CPT/HCPCS: 36415; 71045; 80053; 84484; 85025; 85610; 85730; 93005; 96360; 99284; J1815; J7030

== ENCOUNTER → 2025-06-21 | Outpatient (CLI) | payer MEDICARE, MEDICAID, SELFPAY ==
--- NOTE | 2025-06-21 13:15 | XR_ITS ---
Examination: MRI lumbar spine without contrast Date and time of exam: MRI of the lumbar spine without contrast on 06/21/2025 at 1:39 p.m. CLINICAL HISTORY: Lower back pain with pain shooting down both right and left lower extremities, numbness and tingling in both legs for 6 months after a traumatic fall Technique: Multiple MRI axial and sagittal sections lumbar spine. Sagittal T2-weighted images, TR 3500, TE 118 T1 weighted transverse sections, TR 688 T8.5, T2-weighted sagittal sections T1 weighted sagittal sections TR 621, TE 30 T2 axial sections, TR 4, 190, TE 84. Findings: The conus medullaris stops at the level of L1. The MRI appearance and signal intensity of the lumbar vertebra are perfectly normal at all levels from T11 down to L4, and at these levels all of the disc spaces appear normal as do the disc margins. The spinal canal and the neural foramina all appear normal down to the level of L3-L4. No abnormalities are seen in the retroperitoneum. At L4-L5 there is first-degree spondylolisthesis and there is a huge broad-based disc herniation in the midline, slightly more prominent to the right side this markedly narrows the spinal canal but does not cause spinal canal stenosis. It does create significant narrowing of both right and left neuroforamina. At L5-S1 there is slight reverse spondylolisthesis, there is evidence of marked bone marrow edema involving the body of L5 and S1, and there is a significant broad-based disc protrusion. This creates moderate indentation and narrowing on both right and left neuroforamen at L5-S1. IMPRESSION: 1. The lumbosacral spine and spinal canal and distal spinal cord are all perfectly normal at all levels down to L4. 2. At L4-5 there is first-degree spondylolisthesis with a very large broad-based disc protrusion noted see above, creates fairly prominent narrowing of both neuroforamina. 3. At L5-S1 there is reverse spondylolisthesis, there is bone marrow edema within the body of L5 and within S1, there is a broad-based prominent disc protrusion which creates significant narrowing of both right and left neural foramina
== END | disposition home or self-care (01) ==
PROVIDERS: PCP Hospitalist; Referring Provider Hospitalist; Visit Provider Hospitalist
DX: M43.16 Spondylolisthesis, lumbar region (principal); M51.26 Other intervertebral disc displacement, lumbar region; M43.17 Spondylolisthesis, lumbosacral region; M48.07 Spinal stenosis, lumbosacral region
CPT/HCPCS: 72148

== ENCOUNTER 2025-07-07 00:47 | Emergency (ER) | payer MEDICARE, MEDICAID, SELFPAY ==
[2025-07-07 00:53] VITALS: BP 179/84; BP 192/89; PULSE 97; RESP 18; RESP 19; TEMP 37; O2SAT 93; BMI 31.6
[2025-07-07 00:59] VITALS: BP 192/89; PULSE 98; RESP 15; TEMP 37.3; O2SAT 90
--- NOTE | 2025-07-07 01:19 | EKG_ITS ---
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
--- NOTE | 2025-07-07 01:33 | PD.EDABDPN ---
ED Abdominal Pain RME/HPI General Chief Complaint: Abdominal Pain Stated complaint: ABDOMINAL PAIN Time seen by provider: 07/07/25 01:20 Arrival date/time: 07/07/25 00:47 RME / HPI RME / HPI narrative: Dr. Yee?s Main ED Evaluation: 54yo female who has been seen twice over the last couple weeks for urinary retention reportedly had 850cc and 1250cc of retained urine respectively. Patient is currently on HD and dialyzed on . No recent fever or chills. No cough, cold, congestion-type symptoms. Patient currently presenting due to inability to urinate. Related Data Home Medications ?Medication ?Instructions ?Recorded ?Confirmed insulin regular human 100 unit/mL 1 unit subcut PRN PRN Hyperglycemia 04/17/20 12/19/24 injection solution (Humulin R Regular U-100 Insulin) levothyroxine 25 mcg tablet 37.5 mcg PO DAILY 04/17/20 12/19/24 ergocalciferol (vitamin D2) 1,250 1,250 mcg PO 2 X WEEKLY 08/25/23 12/19/24 mcg (50,000 unit) capsule (Vitamin D2) sevelamer HCl 800 mg tablet 800 mg PO TID 08/25/23 12/19/24 (Renagel) allopurinol 300 mg tablet 300 mg PO QDAY 03/16/24 12/19/24 vitamin B complex-vitamin C-folic 1 tab PO QDAY 03/16/24 12/19/24 acid 0.8 mg tablet (Татьяна-Toby) atorvastatin 80 mg tablet 80 mg PO .pm 12/19/24 12/19/24 furosemide 40 mg tablet 20 mg PO QWEEK 12/19/24 12/19/24 Previous Rx's ?Medication ?Instructions ?Recorded amlodipine 5 mg tablet 10 mg (2 x 5 mg) PO QDAY #30 tabs 12/21/24 fluconazole 100 mg tablet 200 mg (2 x 100 mg) PO QDAY #30 12/21/24 tabs insulin glargine 100 unit/mL (3 20 unit (0.2 mL) subcut QAM #15 mL 12/21/24 mL) subcutaneous pen (Basaglar KwikPen U-100 Insulin) midodrine 10 mg tablet 10 mg PO PRN PRN if sbp<100 #30 12/21/24 tabs ondansetron 4 mg disintegrating 4 mg PO PRN PRN nausea or 12/21/24 tablet vomitings #30 tabs dexamethasone 4 mg tablet 4 mg PO Q8H #11 tabs 02/21/25 hydromorphone 2 mg tablet 2 mg PO BID Pain moderate to 02/21/25 severe #4 tabs morphine 15 mg immediate release 15 mg PO Q4H PRN pain #30 tabs 02/24/25 tablet nitrofurantoin 100 mg PO Q12H 7 days #14 caps 07/07/25 monohydrate/macrocrystals 100 mg capsule (Macrobid) Allergies Allergy/AdvReac Type Severity Reaction Status Date / Time codeine Allergy Severe Swelling Verified 04/26/25 12:46 hydrocodone Allergy Severe Swelling Verified 04/26/25 12:46 Penicillins Allergy Severe Difficulty Verified 04/26/25 12:46 Breathing sulfamethoxazole (From Allergy Severe Swelling Verified 04/26/25 12:46 Bactrim) of Lip/Tongue/Throat trimethoprim (From Bactrim) Allergy Severe Swelling Verified 04/26/25 12:46 of Lip/Tongue/Throat Review of Systems Review of Systems Systems Reviewed: All systems reviewed, normal except as documented Past Medical History Past Medical History NEUROLOGIC: Negative Neurological Disorders or Seizures CARDIAC: Positive Cardiac Disorders, Hypercholesterolemia, Congestive Heart Failure, Edema, Hypertension and Hypotension RESPIRATORY: Negative Chronic Obstructive Pulmonary Disease (COPD) GASTROINTESTINAL: Positive Gastroesophageal Reflux Disease and Obesity; Negative Gastrointestinal Disorders GENITOURINARY: Positive Genitourinary Disorders, Renal Disease and Dialysis REPRODUCTIVE: Positive Previous Pregnancies; Negative Breast Cancer MUSCULOSKELETAL: Negative Musculoskeletal Disorders or Carpal Tunnel Syndrome ENT: Positive Cataracts and Deafness ENDOCRINE: Positive Endocrine Disorders, Diabetes Mellitus Type 2 and Hypothyroidism; Negative Diabetes Mellitus Type 1 HEMATOLOGIC: Positive Blood Disorders and Anemia OTHER HISTORY: Positive Hospitalization, Shingles, Falls, Blood Transfusions, MRSA and Chicken Pox; Negative Autoimmune Disease, Blood Transfusion Reaction, Anesthesia Reactions, Measles, Mumps, Clostridium Difficile, Cancer or Breast Cancer Family History FAMILY HISTORY: Positive Family Respiratory Disorders, Family Cardiac Disorders and Family Cancer; Negative Family Psychiatric Problems, Family Gastrointestinal Problems, Family Surgery or Family Anesthesia Reaction Surgical History SURGICAL: Positive Oral Surgery and Section; Negative Cardiac Surgery, Endocrine Surgery, Thyroidectomy, Abdominal Surgery, Nephrectomy, Joint Replacement, Amputation, Open Reduction Internal Fixation, Arthroscopy, Neurologic Surgery, Brain Shunt, Mastectomy, Lumpectomy, Hysterectomy or Tubal Ligation Social History SMOKING STATUS: Never smoker SECOND HAND EXPOSURE: No SUBSTANCE USE: does not use ED Exam Narrative Physical exam: GENERAL APPEARANCE: alert and oriented x 4, nontoxic, complaining of suprapubic pain, no acute distress HEENT: Normocephalic, atraumatic; pupils equal, round, reactive to light; EOMI; mucous membranes pink, moist; oropharynx clear NECK: Supple, no JVD LUNGS: CTABL; no wheezes, no rales, no rhonchi HEART: Regular rate, regular rhythm; normal S1, S2; no murmurs ABDOMEN: non distended; soft, tenderness to the suprapubic region, percussible bladder in the suprapubic region BACK: no CVA tenderness EXTREMITIES: atraumatic; no edema NEUROLOGIC: awake; alert and oriented x4; cranial nerves II-XII grossly intact; no focal sensory or motor deficits PSYCHIATRIC: appropriate mood and affect SKIN: warm, dry, normal color; no rashes Course Quality Measures none Orders Category Date Time Status EKG (ED ONLY) *Do not use* NOW Care 07/07/25 01:19 Completed Blankenship [Urinary Catheter] QS Care 07/07/25 00:35 Completed EKG (ED Only) Stat Exams 07/07/25 01:19 Draft XR chest 1V portable Stat Exams 07/07/25 03:28 Completed B-Type Natriuretic Peptide Stat Lab 07/07/25 02:26 Completed CBC Stat Lab 07/07/25 02:26 Completed Comprehensive Metabolic Panel Stat Lab 07/07/25 02:26 Completed Drug Screen,Urine Stat Lab 07/07/25 01:35 Completed Lipase Stat Lab 07/07/25 02:26 Completed Magnesium Stat Lab 07/07/25 02:26 Completed Partial Thromboplastin Time Stat Lab 07/07/25 02:26 Completed Prothrombin Time with INR Stat Lab 07/07/25 02:26 Completed Urinalysis, C/S if Indicated Stat Lab 07/07/25 01:35 Completed Urine Culture Stat Lab 07/07/25 01:35 Received Insulin Regular Med 07/07/25 05:08 Discontinued 6 unit SC X1 ONE Insulin Regular Med 07/07/25 04:13 Discontinued 8 unit SC X1 ONE Mirapen Med 07/07/25 05:00 Discontinued 1 gm IV X1 ONE Vital Signs Vital signs: Vital Signs Temperature 98.6 F 07/07/25 00:53 Pulse Rate 97 07/07/25 00:53 Respiratory Rate 18 07/07/25 00:53 Blood Pressure 179/84 H 07/07/25 00:53 Pulse Oximetry (%) 93 L 07/07/25 00:53 Abdominal Pain MDM MDM Narrative MDM Narrative:: Scribe Attestation: 07/07/25 - ILeslie, marianela scribing for and in the presence of Dr. Yee. 54yo female who has been seen twice over the last couple weeks for urinary retention reportedly had 850cc and 1250cc of retained urine respectively. Patient is currently on HD and dialyzed on //Wed. No recent fever or chills. No cough, cold, congestion-type symptoms. Patient currently presenting due to inability to urinate. Please see PE findings. Lab markers demonstrated stable Hgb 9.5, normal Plt count, no left shift or bandemia. Chemistries demonstrated Creatinine 7.8, K at baseline at 4.4, Glucose 431, Calcium elevated at 11.1. Serum globulin elevated to 3.6, although albumin low to 3.1. UA demonstrated pyuria and positive leukocyte esterase, but no bacteria. Patient placed on monitor, blankenship catheter placed with 800 cc of slightly turbid urine. Empiric antibiotics administered. Patient will be discharged home on Macrobid. Dx: acute urinary retention, UTI, hyperglycemia without ketosis, hypercalcemia Patient data External records reviewed:: [facility] previous records (Per chart review, patient was seen here on 04/26/25 for poorly controlled diabetes mellitus.) Clinical information provided by:: patient Social determinants that could affect healthcare access:: none Patient has the following chronic illnesses:: ESRD (T//Wed), CHF, DMII, hypothyroidism, dermoid tumor How is presenting disease/condition affected by chronic disease/condition?: uneffected by Evaluation data The following diagnostics were reviewed and interpreted by me:: lab results and radiology exam(s) Lab and/or radiology exams considered but not ordered:: none Interpretation Summary: CXR shows normal cardiac silhouette, no effusions, no infiltrates, no pneumothorax, according to my interpretation. Medications / Prescriptions Medications or Prescriptions considered but not ordered:: none Medication administrations:: Medication Administration History Discontinued Medications Insulin Human Regular (Insulin Hum Regular 1 Unit/0.01 Ml (Per Unit)) 8 unit SC X1 ONE Stop: 07/07/25 04:14 Last Admin: 07/07/25 05:07 Dose: Not Given Documented By: KRYSTAL Non-Admin Reason: Cancelled by Provider Insulin Human Regular (Insulin Hum Regular 1 Unit/0.01 Ml (Per Unit)) 6 unit SC X1 ONE Stop: 07/07/25 05:09 Last Admin: 07/07/25 05:16 Dose: 6 unit Documented By: KRYSTAL Co-signed By: LONNIE Non-Formulary Medication (Mirapen) 1 gm IV X1 ONE Stop: 07/07/25 05:01 see above Consultations Consultation(s) initiated? (list below): No Diagnosis Differential diagnosis abdominal pain: other (urinary retention, UTI, dehydration, electrolyte abnormality) Most likely diagnosis given after review of the tests above:: see clinical impression below Admission Indicated Admission indicated?: not indicated Admission Request Was there a request for admission?: No Disposition Plan Disposition Plan: Discharge Discharge Attestation Discharge Attestation: The patient and all family members were given an opportunity to ask questions and understood the discharge instructions. Discharge instructions specifically effects, indications for sooner follow up or return to the emergency department, and the expected course of current diagnosis. Patient condition: Stable Discharge Plan Plan Patient Disposition: HOME (Self Care) Discharge Disposition comment: stable Prescriptions/Referrals Prescriptions/Med Rec: New nitrofurantoin monohyd/m-cryst [Macrobid] 100 mg capsule 100 mg PO Q12H 7 Days Qty: 14 0RF Rx Instructions: must administer with a meal/food No Action allopurinol 300 mg tablet 300 mg PO QDAY Татьяна-Toby 0.8 mg tablet 1 tab PO QDAY levothyroxine 25 mcg Tablet 37.5 mcg PO DAILY Humulin R Regular U-100 Insuln 100 unit/mL Solution 1 unit subcut PRN PRN (Reason: Hyperglycemia) Patient Comments: sliding scale sevelamer HCl [Renagel] 800 mg Tablet 800 mg PO TID Rx Instructions: must administer with a meal/food ergocalciferol (vitamin D2) [Vitamin D2] 1,250 mcg (50,000 unit) Capsule 1,250 mcg PO 2 X WEEKLY dexamethasone 4 mg tablet 4 mg PO Q8H Qty: 11 0RF hydromorphone 2 mg tablet 2 mg PO BID MDD 4 mg Qty: 4 0RF atorvastatin 80 mg tablet 80 mg PO .pm furosemide 40 mg tablet 20 mg PO QWEEK Patient Comments: per patient 0.5 tablet prn ondansetron 4 mg tablet,disintegrating 4 mg PO PRN PRN (Reason: nausea or vomitings) Qty: 30 0RF midodrine 10 mg Tablet 10 mg PO PRN PRN (Reason: if sbp<100) Qty: 30 0RF Patient Comments: per patient as needed for low blood pressure Rx Instructions: Take 1 tablet as needed if BP<100/60 insulin glargine [Basaglar KwikPen U-100 Insulin] 100 unit/mL (3 mL) Insulin Pen 20 unit SUBCUT QAM Qty: 15 2RF fluconazole 100 mg Tablet 200 mg PO QDAY Qty: 30 1RF amlodipine 5 mg Tablet 10 mg PO QDAY Qty: 30 1RF morphine 15 mg tablet 15 mg PO Q4H MDD 6 PRN (Reason: pain) Qty: 30 0RF Referrals: Kyler([facility])Krystle MD [Primary Care Provider, Internal Medicine] - In 1 week Problem List Clinical Impression: Acute urinary retention, UTI (urinary tract infection) Impression comment: Acute urinary retention/UTI Patient/Caregiver Discharge Instructions Education Materials: Catheter-Linked Urinary Tract ..., ED Diabetes with High Blood Sugar, ED Urinary Retention, Female Additional Instructions: Increase fluid hydration. Antibiotics as directed. Follow-up with primary care doctor for referral to urologist within 7 to 10 days. Return if worsening Print Language: [place] Stand Alone Forms: Karishma Award Info., Patient Portal Info Letter
[2025-07-07 02:13] LABS: Collection Type, Urine Clean Catch
[2025-07-07 02:24] LABS: Amphetamine/Methamp Scrn,U Negative (Negative); Barbiturate Screen,Urine Negative (Negative); Benzodiazepines Screen,Urine Negative (Negative); Benzoylecgonine Screen, Ur Negative (Negative); Fentanyl Screen,Urine Negative (Negative); Opiate Screen,Urine Positive (Negative); THC Screen,Urine Negative (Negative)
[2025-07-07 02:36] LABS: Basophils # (Auto) 0.0 Thou/mm3 (0.0-0.2); Basophils % (Auto) 0 % (0-2.5); Eosinophils # (Auto) 0.3 Thou/mm3 (0.0-0.5); Eosinophils % (Auto) 3 % (0-10); Hematocrit 32.0 % (36.0-46.0); Hemoglobin 9.5 g/dL (12.0-16.0); Immature Granulocytes Auto 0.04 Thou/mm3 (0.00-0.00); Lymphocytes # (Auto) 1.3 Thou/mm3 (1.0-4.8); Lymphocytes % (Auto) 14 % (10-50); Mean Corpuscular HGB Conc 29.7 g/dl (31.0-37.0); Mean Corpuscular Hemoglobin 26.1 pg (25.0-35.0); Mean Corpuscular Volume 88 fL (80-100); Monocytes # (Auto) 0.6 Thou/mm3 (0.0-0.8); Monocytes % (Auto) 6 % (0-12); Neutrophils # (Auto) 7.2 Thou/mm3 (1.8-7.7); Neutrophils % (Auto) 77 % (37-80); Nucleated Red Blood Cell # 0.00 Thou/mm3 (0.00-0.00); Nucleated Red Blood Cell % 0 /100 WBC (0); Platelet Count 256 Thou/mm3 (140-440); RDW Standard Deviation 61.3 fL (36.4-46.3); Red Blood Count 3.64 Miln/mm3 (4.00-5.20); White Blood Count 9.4 Thou/mm3 (3.6-11.0)
[2025-07-07 02:52] LABS: Bilirubin,Urine Negative (Negative); Blood,Urine Trace (Negative); Budding Yeast,Urine Present; Clarity,Urine Turbid (Clear/Hazy); Color,Urine Lt-Yellow (Lt Yel-Yel); Glucose, Urine 4+ (Negative); Ketones,Urine Negative (Negative); Leukocyte Esterase,Urine Positive (Negative); Nitrite,Urine Negative (Negative); PH,Urine 7.5 (5.0-7.0); Protein,Urine 2+ (Neg - Trace); RBC,Urine 13 /hpf (0-3); Specific Gravity,Urine 1.010 (1.001-1.035); Squamous Epithelial Cell,Urine 3 /hpf (0-5); Urobilinogen,Urine Negative mg/dL (0.0-1.0); WBC,Urine 54 /hpf (0-5)
[2025-07-07 02:53] LABS: Culture Indicated,Urine Yes
[2025-07-07 02:54] LABS: INR 1.0 (0.9-1.3); Partial Thromboplastin Time 26.3 Seconds (22.0-36.0); Prothrombin Time 10.6 Seconds (9.0-12.2)
[2025-07-07 02:59] LABS: B-Type Natriuretic Peptide 211 pg/mL (0-100)
[2025-07-07 03:02] LABS: Alanine Aminotransferase < 7 U/L (10-49); Albumin, Serum 3.8 gm/dL (3.5-5.0); Albumin/Globulin Ratio 1.1 (1.2-2.2); Alkaline Phosphatase 125 U/L (46-116); Anion Gap 14 (7-16); Aspartate Amino Transferase 11 U/L (0-34); BUN/Creatinine Ratio 9 Ratio (12-20); Bilirubin,Total 0.2 mg/dL (0.3-1.2); Blood Urea Nitrogen 67 mg/dL (9-23); Calcium 10.9 mg/dL (8.3-10.6); Calcium (Corrected) 11.1 mg/dL (8.5-10.1); Carbon Dioxide 25.2 mMol/L (20.0-31.0); Chloride 92 mMol/L (98-107); Creatinine (Component) 7.8 mg/dL (0.6-1.3); Estimated Creatinine Clearance 8.8 mL/min (>60); Globulin 3.6 gm/dL (2.3-3.5); Lipase 33 U/L (12-53); Magnesium 2.1 mg/dL (1.6-2.6); Potassium 4.4 mMol/L (3.4-5.1); Sodium 131 mMol/L (136-145); Total Protein 7.4 gm/dL (5.7-8.2); eGFR 6 See Note
[2025-07-07 03:21] LABS: Osmolality,Calculated 300 (275-295)
[2025-07-07 03:23] LABS: Glucose 431 mg/dL (74-106)
--- NOTE | 2025-07-07 03:28 | XR_ITS ---
EXAMINATION: AP chest single view TECHNIQUE: AP portable supine chest single view Date and time: July 07, 2025, 0342 hours, comparison April 26, 2025 INDICATION: Shortness of breath today. FINDINGS: Mild prominence left ventricle Mild vascular congestion Suspicious for early pneumonia left base retrocardiac Moderate osteopenia IMPRESSION: Suspicious for early pneumonia left base
[2025-07-07] MEDS: INSULIN HUM REGULAR 1 UNIT/0.01 ML (PER UNIT) 6 UNIT SC (05:16)
[2025-07-07 05:24] VITALS: BP 158/91; PULSE 88; RESP 16; TEMP 37.2; O2SAT 97
[2025-07-07 06:17] VITALS: BP 146/85; PULSE 86; RESP 20; TEMP 37.2; O2SAT 95
--- NOTE | 2025-07-07 06:55 | PC.NURSE ---
REPORT CALLED AND SPOKE TO NICO FROM [employer]. ALL QUESTIONS ANSWER.
== END 2025-07-07 07:13 | disposition home or self-care (01) ==
PROVIDERS: Emergency Provider Emergency Medicine; PCP Hospitalist
DX: N39.0 Urinary tract infection, site not specified (principal); R06.02 Shortness of breath; I13.2 Hypertensive heart and chronic kidney disease with heart failure and with stage 5 chronic kidney disease, or end stage renal disease; I50.9 Heart failure, unspecified; N18.6 End stage renal disease; E11.65 Type 2 diabetes mellitus with hyperglycemia; E11.22 Type 2 diabetes mellitus with diabetic chronic kidney disease; E78.00 Pure hypercholesterolemia, unspecified; Z79.4 Long term (current) use of insulin; Z99.2 Dependence on renal dialysis
CPT/HCPCS: 36415; 51702; 71045; 80053; 80307; 81001; 83690; 83735; 83880; 85025; 85610; 85730; 87077; 87086; 87186; 93005; 99284; A4314; J1815